=== PATIENT | female | born 1995 | race Caucasian/White ===

== ENCOUNTER → 2017-01-30 08:56 | Outpatient (CLI) | payer BC, SELFPAY | PROVIDERS: Family Provider Family Medicine; PCP Family Medicine; Visit Provider Family Medicine | DX: A04.7 Enterocolitis due to Clostridium difficile (principal) ==

== ENCOUNTER → 2017-12-22 14:48 | Outpatient (CLI) | payer BC, SELFPAY ==
[2017-12-22 16:04] LABS: hCG Titer Quant., Serum < 1 mIU/mL (<9 non-preg)
== END ==
PROVIDERS: Family Provider Family Medicine; PCP Family Medicine; Visit Provider Obstetrics & Gynecology
DX: N91.2 Amenorrhea, unspecified (principal)
CPT/HCPCS: 36415; 84702

== ENCOUNTER → 2018-01-14 14:06 | Outpatient (CLI) | payer BC, SELFPAY ==
[2018-01-21 11:08] LABS: HPV APTIMA, High Risk Negative (Negative)
[2018-01-21 11:14] LABS: HPV Reflexed? YES, CHARGE PATIENT
== END ==
PROVIDERS: Family Provider Family Medicine; PCP Family Medicine; Visit Provider Obstetrics & Gynecology
DX: Z12.4 Encounter for screening for malignant neoplasm of cervix (principal)
CPT/HCPCS: 87624; 88175; G0145

== ENCOUNTER → 2018-06-26 15:03 | Outpatient (CLI) | payer BC, SELFPAY ==
[2018-06-26 15:39] LABS: Estradiol 42.4 pg/mL; Follicle Stimulating Hormone 8.1 mIU/mL; Thyroid Stim Hormone (TSH) 1.27 uIU/mL (0.358-3.74)
== END ==
LOC: PAVLAB 15:05
PROVIDERS: Referring Provider Obstetrics & Gynecology; Visit Provider Obstetrics & Gynecology
DX: N97.9 Female infertility, unspecified (principal)
CPT/HCPCS: 36415; 82670; 83001; 84443

== ENCOUNTER → 2018-07-15 14:50 | Outpatient (CLI) | payer BC, SELFPAY ==
[2018-07-15 15:51] LABS: Progesterone Level 12.98 ng/mL (See Comment)
== END ==
PROVIDERS: Family Provider Internal Medicine; PCP Internal Medicine; Referring Provider Obstetrics & Gynecology; Visit Provider Obstetrics & Gynecology
DX: N92.1 Excessive and frequent menstruation with irregular cycle (principal)
CPT/HCPCS: 36415; 84144

== ENCOUNTER → 2019-06-17 09:16 | Outpatient (CLI) | payer BC, SELFPAY ==
[2018-12-19 13:01] VITALS: BMI 25.0
[2019-06-17 09:57] LABS: hCG Titer Quant., Serum < 1 mIU/mL (1-3)
== END ==
PROVIDERS: Family Provider Internal Medicine; PCP Internal Medicine; Referring Provider Obstetrics & Gynecology Reproductive Endocrinology; Visit Provider Obstetrics & Gynecology Reproductive Endocrinology
DX: Z32.00 Encounter for pregnancy test, result unknown (principal)
CPT/HCPCS: 36415; 84702

== ENCOUNTER → 2020-03-01 09:14 | Outpatient (CLI) | payer BC, OTHER, SELFPAY ==
[2019-10-11 10:29] VITALS: BMI 25.0
[2020-03-01 09:49] LABS: Absolute Lymphocyte Count 2.34 X10^3/uL (0.83-4.51); Absolute Neutrophil Count 3.2 X10^3/uL (2.0-7.7); Basophil# 0.04 X10^3/uL; Basophil% 0.6 % (0-1); Eosinophil# 0.19 X10^3/uL; Hematocrit 47.5 % (37-47); Hemoglobin 14.6 g/dL (12.0-15.0); Lymphocyte # 2.34 X10^3/ul (4.0); Lymphocyte % 36.9 % (19-41); Mean Corp Hgb Conc 30.7 g/dL (32-36); Mean Corpuscular Hgb 29.1 pg (27.0-32.0); Mean Corpuscular Volume 94.8 fL (81-99); Monocyte# 0.52 X10^3/uL; Monocyte% 8.2 % (0-10); NRBC Flagged by Analyzer 0 % (0-5); Neutrophil # 3.23 X10^3/uL (2.7-7.7); Platelet Count 225 K/mm3 (150-450); RBC Distribution Width CV 13.2 % (11.6-14.6); RBC Distribution Width SD 45.5 fl (35.1-43.9); Red Blood Count 5.01 M/mm3 (4.2-5.4); White Blood Count 6.3 K/mm3 (4.4-11.0)
[2020-03-01 10:55] LABS: HIV - WCH Non-Reactive (Nonreactive); Hepatitis B Surface Antigen Non-Reactive (Nonreactive); Hepatitis C Antibody Non-Reactive (Nonreactive); Vitamin D,25 Hydroxy 35.3 ng/mL
[2020-03-01 11:24] LABS: ALB/GLOB Ratio 1.1 RATIO (0.9-2.4); AST(SGOT) 12 U/L (15-37); Alanine Aminotransfer ALT/SGPT 28 U/L (13-56); Albumin, Serum 3.7 g/dL (3.2-5.0); Alkaline Phosphatase 55 U/L (45-117); Anion Gap 6 (5-15); BUN 14 mg/dL (7-18); BUN/Creat Ratio 16.9 RATIO (10-20); Calcium,Total 8.9 mg/dL (8.5-10.1); Chloride 106 mmol/L (98-107); Creatinine, Serum 0.83 mg/dL (0.55-1.02); EST Glomerular Filtration Rate 89 mL/min (>60); Est Glom Filt Rate - Afr Amer 108 mL/min (>60); Globulin 3.3 g/dL (2.2-4.2); Glucose 86 mg/dL (74-106); Potassium 3.7 mmol/L (3.5-5.1); Prolactin 14.8 ng/mL; Sodium Level 140 mmol/L (136-145); Thyroid Stim Hormone (TSH) 1.07 uIU/mL (0.358-3.74)
[2020-03-02 01:59] LABS: Rapid Plasmin Reagin (RPR) NONREACTIVE (NONREACTIVE)
== END ==
PROVIDERS: Visit Provider Obstetrics & Gynecology Reproductive Endocrinology
DX: E28.9 Ovarian dysfunction, unspecified (principal)
CPT/HCPCS: 36415; 80053; 82306; 84146; 84443; 85025; 86592; 86703; 86803; 87340

== ENCOUNTER → 2020-04-10 13:33 | Outpatient (CLI) | payer OTHER, BC, SELFPAY ==
[2019-10-11 10:29] VITALS: BMI 25.0
--- NOTE | 2020-04-10 13:55 | US_ITS ---
STUDY: ULTRASOUND OF THE FEMALE PELVIS - COMPLETE REASON FOR EXAM: Female, 24 years old. INFERTILITY LMP: 04/08/2020. TECHNIQUE: Transabdominal and Transvaginal TECHNICAL QUALITY: Adequate. COMPARISON: None. FINDINGS: The uterus is anteverted and is in a midline position. The uterus measures 7.7 cm x 4.4 cm x 2.9 cm. There is a Nabothian cyst of the cervix. The endometrium measures 3.0 mm in thickness, and is hyperechoic. There is no demonstrated endometrial mass. There is no demonstrated myometrial mass. I.U.D. - The patient does not have an I.U.D. The right ovary is visualized. The right ovary measures 4 cm x 3.8 cm x 2.1 cm. A dominant follicle is seen within the right ovary measuring 1.7 cm x 2 cm x 0.8 cm. There is no visualized right adnexal mass or complex lesion. There is normal arterial and normal venous vascularity. The left ovary is visualized. The left ovary measures 3.3 cm x 1.6 cm x 1.7 cm. There is no left ovarian cyst or ovarian mass. There is no visualized left adnexal mass or complex lesion. There is normal arterial and normal venous vascularity. There is no fluid in the cul-de-sac. The pre void volume of the bladder was 62 ml. US/Pelvic (Non ) IMPRESSION: Dominant follicle is seen in the right ovary measuring 1.7 cm x 2 cm x 0.8 cm. Electronically Signed: Lucius Huff, at 15:33 EDT , Service support ,
--- NOTE | 2020-04-10 13:55 | US_ITS ---
STUDY: ULTRASOUND OF THE FEMALE PELVIS - COMPLETE REASON FOR EXAM: Female, 24 years old. INFERTILITY LMP: 04/08/2020. TECHNIQUE: Transabdominal and Transvaginal TECHNICAL QUALITY: Adequate. COMPARISON: None. FINDINGS: The uterus is anteverted and is in a midline position. The uterus measures 7.7 cm x 4.4 cm x 2.9 cm. There is a Nabothian cyst of the cervix. The endometrium measures 3.0 mm in thickness, and is hyperechoic. There is no demonstrated endometrial mass. There is no demonstrated myometrial mass. I.U.D. - The patient does not have an I.U.D. The right ovary is visualized. The right ovary measures 4 cm x 3.8 cm x 2.1 cm. A dominant follicle is seen within the right ovary measuring 1.7 cm x 2 cm x 0.8 cm. There is no visualized right adnexal mass or complex lesion. There is normal arterial and normal venous vascularity. The left ovary is visualized. The left ovary measures 3.3 cm x 1.6 cm x 1.7 cm. There is no left ovarian cyst or ovarian mass. There is no visualized left adnexal mass or complex lesion. There is normal arterial and normal venous vascularity. There is no fluid in the cul-de-sac. The pre void volume of the bladder was 62 ml. US/Transvaginal Non- IMPRESSION: Dominant follicle is seen in the right ovary measuring 1.7 cm x 2 cm x 0.8 cm. Electronically Signed: Lucius Huff, at 15:33 EDT , Service support ,
[2020-04-10 14:26] LABS: hCG Titer Quant., Serum < 1 mIU/mL (1-3)
[2020-04-10 14:30] LABS: Progesterone Level 0.92 ng/mL (See Comment)
[2020-04-10 14:33] LABS: Estradiol 28.5 pg/mL; Follicle Stimulating Hormone 4.2 mIU/mL; Luteinizing Hormone 4.7 mIU/mL
== END ==
PROVIDERS: Referring Provider Obstetrics & Gynecology; Visit Provider Obstetrics & Gynecology
DX: N97.9 Female infertility, unspecified (principal)
CPT/HCPCS: 36415; 76830; 76856; 82670; 83001; 83002; 84144; 84443; 84702

== ENCOUNTER → 2020-04-18 09:36 | Outpatient (CLI) | payer OTHER, BC, SELFPAY ==
[2019-10-11 10:29] VITALS: BMI 25.0
[2020-04-18 10:09] LABS: Estradiol 314.5 pg/mL; Luteinizing Hormone 5.8 mIU/mL
--- NOTE | 2020-04-18 11:21 | US_ITS ---
STUDY: ULTRASOUND OF THE FEMALE PELVIS - COMPLETE REASON FOR EXAM: Female, 24 years old. INFERTILITY LMP: 04/08/2020. TECHNIQUE: Transabdominal and Transvaginal TECHNICAL QUALITY: Adequate. COMPARISON: Comparison is made with prior examination of 04/10/2020. FINDINGS: The uterus is anteverted and is in a midline position. The uterus measures 8.4 cm x 4.3 cm x 3.4 cm. There is a Nabothian cyst of the cervix. The endometrium measures 5.1 mm in thickness, and is heterogeneous (striated). There is no demonstrated endometrial mass. There is no demonstrated myometrial mass. I.U.D. - The patient does not have an I.U.D. The right ovary is visualized. The right ovary measures 3.3 cm x 2.8 cm x 2.1 cm. There is no right ovarian cyst or ovarian mass. There is no visualized right adnexal mass or complex lesion. There is normal arterial and normal venous vascularity. The left ovary is visualized. The left ovary measures 3 cm x 1.7 cm x 1.7 cm. There is no left ovarian cyst or ovarian mass. There is no visualized left adnexal mass or complex lesion. There is normal arterial and normal venous vascularity. There is no fluid in the cul-de-sac. The pre void volume of the bladder was 133 ml. Polycystic ovary disease: No. US/Transvaginal Non- IMPRESSION: Normal female pelvis. Electronically Signed: Lucius Huff, at 12:45 EDT , Service support ,
--- NOTE | 2020-04-18 11:21 | US_ITS ---
STUDY: ULTRASOUND OF THE FEMALE PELVIS - COMPLETE REASON FOR EXAM: Female, 24 years old. INFERTILITY LMP: 04/08/2020. TECHNIQUE: Transabdominal and Transvaginal TECHNICAL QUALITY: Adequate. COMPARISON: Comparison is made with prior examination of 04/10/2020. FINDINGS: The uterus is anteverted and is in a midline position. The uterus measures 8.4 cm x 4.3 cm x 3.4 cm. There is a Nabothian cyst of the cervix. The endometrium measures 5.1 mm in thickness, and is heterogeneous (striated). There is no demonstrated endometrial mass. There is no demonstrated myometrial mass. I.U.D. - The patient does not have an I.U.D. The right ovary is visualized. The right ovary measures 3.3 cm x 2.8 cm x 2.1 cm. There is no right ovarian cyst or ovarian mass. There is no visualized right adnexal mass or complex lesion. There is normal arterial and normal venous vascularity. The left ovary is visualized. The left ovary measures 3 cm x 1.7 cm x 1.7 cm. There is no left ovarian cyst or ovarian mass. There is no visualized left adnexal mass or complex lesion. There is normal arterial and normal venous vascularity. There is no fluid in the cul-de-sac. The pre void volume of the bladder was 133 ml. Polycystic ovary disease: No. US/Pelvic (Non ) IMPRESSION: Normal female pelvis. Electronically Signed: Lucius Huff, at 12:45 EDT , Service support ,
[2020-04-18 11:42] LABS: Progesterone Level < 0.21 ng/mL (See Comment)
== END ==
PROVIDERS: Referring Provider Obstetrics & Gynecology; Visit Provider Obstetrics & Gynecology
DX: E28.9 Ovarian dysfunction, unspecified (principal); N97.9 Female infertility, unspecified
CPT/HCPCS: 36415; 76830; 76856; 82670; 83002; 84144

== ENCOUNTER → 2020-04-21 13:16 | Outpatient (CLI) | payer OTHER, BC, SELFPAY ==
[2019-10-11 10:29] VITALS: BMI 25.0
[2020-04-21 10:30] LABS: hCG Titer Quant., Serum < 1 mIU/mL (1-3)
[2020-04-21 10:35] LABS: Follicle Stimulating Hormone 4.1 mIU/mL; Thyroid Stim Hormone (TSH) 1.08 uIU/mL (0.358-3.74)
--- NOTE | 2020-04-21 13:16 | US_ITS ---
STUDY: ULTRASOUND OF THE FEMALE PELVIS - COMPLETE REASON FOR EXAM: Female, 24 years old. INFERTILITY, TRACKING ENDOMETRIAL THICKNESS FOR IVF LMP: 04/08/2020. TECHNIQUE: Transabdominal and Transvaginal TECHNICAL QUALITY: Adequate. COMPARISON: Comparison is made with prior study dated 04/18/2020. FINDINGS: The uterus is anteverted and is in a midline position. The uterus measures 7.5 cm x 4.3 cm x 3.2 cm. There is a Nabothian cyst of the cervix. The endometrium measures 5.6 mm in thickness, and is hyperechoic. There is no demonstrated endometrial mass. There is no demonstrated myometrial mass. I.U.D. - The patient does not have an I.U.D. The right ovary is visualized. The right ovary measures 3.6 cm x 2.5 cm x 1.9 cm. There is no right ovarian cyst or ovarian mass. There is no visualized right adnexal mass or complex lesion. There is normal arterial and normal venous vascularity. The left ovary is visualized. The left ovary measures 3 cm x 1.3 cm x 1.7 cm. There is no left ovarian cyst or ovarian mass. There is no visualized left adnexal mass or complex lesion. There is normal arterial and normal venous vascularity. There is no fluid in the cul-de-sac. US/Pelvic (Non ) IMPRESSION: Normal female pelvis. Electronically Signed: Lucius Huff, at 14:41 EDT , Service support ,
--- NOTE | 2020-04-21 13:16 | US_ITS ---
STUDY: ULTRASOUND OF THE FEMALE PELVIS - COMPLETE REASON FOR EXAM: Female, 24 years old. INFERTILITY, TRACKING ENDOMETRIAL THICKNESS FOR IVF LMP: 04/08/2020. TECHNIQUE: Transabdominal and Transvaginal TECHNICAL QUALITY: Adequate. COMPARISON: Comparison is made with prior study dated 04/18/2020. FINDINGS: The uterus is anteverted and is in a midline position. The uterus measures 7.5 cm x 4.3 cm x 3.2 cm. There is a Nabothian cyst of the cervix. The endometrium measures 5.6 mm in thickness, and is hyperechoic. There is no demonstrated endometrial mass. There is no demonstrated myometrial mass. I.U.D. - The patient does not have an I.U.D. The right ovary is visualized. The right ovary measures 3.6 cm x 2.5 cm x 1.9 cm. There is no right ovarian cyst or ovarian mass. There is no visualized right adnexal mass or complex lesion. There is normal arterial and normal venous vascularity. The left ovary is visualized. The left ovary measures 3 cm x 1.3 cm x 1.7 cm. There is no left ovarian cyst or ovarian mass. There is no visualized left adnexal mass or complex lesion. There is normal arterial and normal venous vascularity. There is no fluid in the cul-de-sac. US/Transvaginal Non- IMPRESSION: Normal female pelvis. Electronically Signed: Lucius Huff, at 14:41 EDT , Service support ,
== END ==
PROVIDERS: Referring Provider Obstetrics & Gynecology; Visit Provider Obstetrics & Gynecology
DX: N97.9 Female infertility, unspecified (principal)
CPT/HCPCS: 36415; 76830; 76856; 83001; 84443; 84702

== ENCOUNTER → 2020-04-24 09:33 | Outpatient (CLI) | payer OTHER, BC, SELFPAY ==
[2019-10-11 10:29] VITALS: BMI 25.0
[2020-04-24 11:10] LABS: Estradiol 1395.7 pg/mL; Luteinizing Hormone 9.1 mIU/mL
--- NOTE | 2020-04-24 11:59 | US_ITS ---
STUDY: ULTRASOUND OF THE FEMALE PELVIS - COMPLETE REASON FOR EXAM: Female, 24 years old. INFERTILITY -- CHECK ENDO THICKNESS LMP: 04/08/2020 TECHNIQUE: Transabdominal and Transvaginal TECHNICAL QUALITY: Adequate. COMPARISON: None. FINDINGS: The uterus is anteverted and is in a midline position. The uterus measures 7.9 x 4.7 x 3.2 cm. Normal uterine cervix. The endometrium measures 6.2 mm in thickness, and is heterogeneous (striated). There is no demonstrated endometrial mass. There is no demonstrated myometrial mass. I.U.D. - The patient does not have an I.U.D. The right ovary is visualized. The right ovary measures 3.4 x 3.9 x 2.0 cm. There is no right ovarian cyst or ovarian mass. There is no visualized right adnexal mass or complex lesion. There is normal arterial and normal venous vascularity. The left ovary is visualized. The left ovary measures 3.1 x 1.7 x 1.3 cm. There is no left ovarian cyst or ovarian mass. There is no visualized left adnexal mass or complex lesion. There is normal arterial and normal venous vascularity. There is no fluid in the cul-de-sac. The bladder is sonographically normal US/Pelvic (Non ) IMPRESSION: No suspicious sonographic findings Electronically Signed: Rory Hernandez MD at 13:29 EDT , Service support ,
--- NOTE | 2020-04-24 11:59 | US_ITS ---
STUDY: ULTRASOUND OF THE FEMALE PELVIS - COMPLETE REASON FOR EXAM: Female, 24 years old. INFERTILITY -- CHECK ENDO THICKNESS LMP: 04/08/2020 TECHNIQUE: Transabdominal and Transvaginal TECHNICAL QUALITY: Adequate. COMPARISON: None. FINDINGS: The uterus is anteverted and is in a midline position. The uterus measures 7.9 x 4.7 x 3.2 cm. Normal uterine cervix. The endometrium measures 6.2 mm in thickness, and is heterogeneous (striated). There is no demonstrated endometrial mass. There is no demonstrated myometrial mass. I.U.D. - The patient does not have an I.U.D. The right ovary is visualized. The right ovary measures 3.4 x 3.9 x 2.0 cm. There is no right ovarian cyst or ovarian mass. There is no visualized right adnexal mass or complex lesion. There is normal arterial and normal venous vascularity. The left ovary is visualized. The left ovary measures 3.1 x 1.7 x 1.3 cm. There is no left ovarian cyst or ovarian mass. There is no visualized left adnexal mass or complex lesion. There is normal arterial and normal venous vascularity. There is no fluid in the cul-de-sac. The bladder is sonographically normal US/Transvaginal Non- IMPRESSION: No suspicious sonographic findings Electronically Signed: Rory Hernandez MD at 13:29 EDT , Service support ,
[2020-04-24 13:41] LABS: Progesterone Level < 0.21 ng/mL (See Comment)
== END ==
PROVIDERS: Referring Provider Obstetrics & Gynecology; Visit Provider Obstetrics & Gynecology
DX: N97.9 Female infertility, unspecified (principal)
CPT/HCPCS: 36415; 76830; 76856; 82670; 83002; 84144

== ENCOUNTER → 2020-05-08 09:10 | Outpatient (CLI) | payer OTHER, BC, SELFPAY ==
[2019-10-11 10:29] VITALS: BMI 25.0
[2020-05-08 10:03] LABS: Estradiol 453.7 pg/mL
[2020-05-08 10:04] LABS: Progesterone Level 52.15 ng/mL (See Comment)
== END ==
PROVIDERS: Referring Provider Obstetrics & Gynecology Reproductive Endocrinology; Visit Provider Obstetrics & Gynecology Reproductive Endocrinology
DX: E28.9 Ovarian dysfunction, unspecified (principal)
CPT/HCPCS: 36415; 82670; 84144

== ENCOUNTER → 2020-05-11 09:21 | Outpatient (CLI) | payer OTHER, BC, SELFPAY ==
[2019-10-11 10:29] VITALS: BMI 25.0
[2020-05-11 10:10] LABS: hCG Titer Quant., Serum 56 mIU/mL (1-3)
[2020-05-11 10:15] LABS: Progesterone Level 51.89 ng/mL (See Comment)
== END ==
PROVIDERS: Referring Provider Obstetrics & Gynecology Reproductive Endocrinology; Visit Provider Obstetrics & Gynecology Reproductive Endocrinology
DX: Z32.00 Encounter for pregnancy test, result unknown (principal)
CPT/HCPCS: 36415; 84144; 84702

== ENCOUNTER → 2020-05-13 08:44 | Outpatient (CLI) | payer BC, OTHER, SELFPAY ==
[2019-10-11 10:29] VITALS: BMI 25.0
[2020-05-13 09:45] LABS: Progesterone Level 40.65 ng/mL (See Comment)
[2020-05-13 09:48] LABS: hCG Titer Quant., Serum 73 mIU/mL (1-3)
[2020-05-13 09:53] LABS: Thyroid Stim Hormone (TSH) 0.73 uIU/mL (0.358-3.74)
== END ==
PROVIDERS: Referring Provider Obstetrics & Gynecology Reproductive Endocrinology; Visit Provider Obstetrics & Gynecology Reproductive Endocrinology
DX: Z32.01 Encounter for pregnancy test, result positive (principal)
CPT/HCPCS: 36415; 82670; 84144; 84443; 84702

== ENCOUNTER → 2020-05-16 09:13 | Outpatient (CLI) | payer OTHER, BC, SELFPAY ==
[2019-10-11 10:29] VITALS: BMI 25.0
[2020-05-16 09:57] LABS: Estradiol 1369.8 pg/mL; hCG Titer Quant., Serum 37 mIU/mL (1-3)
[2020-05-16 09:58] LABS: Progesterone Level 27.77 ng/mL (See Comment)
== END ==
DX: Z32.01 Encounter for pregnancy test, result positive (principal)
CPT/HCPCS: 36415; 82670; 84144; 84702

== ENCOUNTER → 2020-05-23 09:40 | Outpatient (CLI) | payer OTHER, BC, SELFPAY ==
[2020-05-18 09:57] VITALS: BMI 25.0
[2020-05-23 10:07] LABS: hCG Titer Quant., Serum < 1 mIU/mL (1-3)
== END ==
PROVIDERS: Referring Provider Obstetrics & Gynecology Reproductive Endocrinology; Visit Provider Obstetrics & Gynecology Reproductive Endocrinology
DX: Z32.01 Encounter for pregnancy test, result positive (principal)
CPT/HCPCS: 36415; 84702

== ENCOUNTER 2020-06-13 10:28 | Day surgery (SDC) | payer OTHER, SELFPAY ==
[2020-05-18 09:57] VITALS: BMI 25.0
[2020-06-13 10:59] VITALS: BP 96/66; PULSE 90; RESP 16; TEMP 37.1; O2SAT 100; BMI 26.6
[2020-06-13 11:03] LABS: Internal QC Validated? YES +Cl - CLEAR BKGD; Pregnancy, Urine Negative Negative
[2020-06-13] MEDS: Lactated Ringers 1,000 ML 100 ML IV (11:17)
--- NOTE | 2020-06-13 12:03 | PCM.HPOB.BLA ---
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 She is undergoing IVF through a physician in [place]. She has not had bleeding in spite of decreasing quants. She also reports a history of pelvic pain. Reports some pain with periods. Periods are very light. Also reports deep dyspareunia. Both her mother and her sister had severe endometriosis. She is actively trying to get so she is unable to use OCPs or leupron. Pregancy History 2 Elective abortions Hx Para 0 Spontaneous abortions 1 Hx # Term Pregnancies Ectopic pregnancies Hx # Pregnancies Multiple births # of living children ROS Const Constitutional: Denies chills, fatigue or fever(s) : Reports pelvic pain and sexual problems; denies blood in urine, urinary urgency, vaginal discharge, vaginal dryness, vaginal odor or vaginal itching Exam Const General: cooperative, healthy appearing, comfortable, well developed, well groomed Neck Neck: normal visual inspection, full ROM Resp Effort & Inspection: normal respiratory effort, able to speak in complete sentences, symmetric chest movement Cardio Rate: regular rate Skin General: no rashes or lesions noted, elasticity normal, turgor normal Lesions: no lesions Rashes: no rashes Neuro General: alert, awake, oriented x3 Cranial Nerves: CN's II-XI intact bilaterally, PERRL, EOM intact bilaterally Cognition: normal cognition Speech: speech normal Gait: normal gait Extrem General: normal to inspection, full ROM, no pedal edema Psych Appearance: grossly normal Mental Status: mental status grossly normal Mood: congruent mood Affect: normal affect Speech and Movement: speech and movement normal Attitude: cooperative Thought Process: normal Thought Content: normal Assessment & Plan 1. Miscarriage O03.9 Plan - Patient with falling quants following embryo transfer - most recently 14 - Will repeat weekly quants to zero - Undecided on future embryo transfers - has phone call with YANNI this week 2. Pelvic pain R10.2 Plan - Patient with history of some pain with menses and deep dyspareunia - Mother and sister both have history of endometriosis - Unable to attempt medical management due to desire for - Plan to proceed with diagnostic laparoscopy with possible fulguration of endometriosis and chromotubation. The nature of the procedure was discussed with the patient. Risks, benefits, indications, and alternatives to the procedure were discussed with the patient including bleeding, infection, and visceral or vascular injury. Agreeable to blood products if medically necessary. Discussed possibility of infection inside abdomen or at incision sites which could require outpatient or inpatient antibiotics. Discussed the possibility of injury to uterus, tubes, ovaries, bowel, and bladder. Aware that this could require intra-op consult to general surgery or urology. Also aware of the possibility of prolonged hospitalization or reoperation. Discussed possibility of need to convert to open to procedure. All questions were answered. Patient voices understanding and agrees to proceed. Coding Level of Care Code Off vis,est,level 4 Diagnoses Miscarriage O03.9 Pelvic pain R10.2 UPDATE- I have seen the patient and performed any clinically relevant updates to the history and physical exam. Mallika Gr MD
--- NOTE | 2020-06-13 12:05 | DCINST_ITS ---
Discharge Diet: No Restrictions, - - Increase fluid intake for 48 hours. Discharge Activity: Return to Normal Activity, May Drive - when you are no longer taking narcotic pain medications., May Shower, May Take a Tub Bath - in 7 days., - - Ambulate often the next week after surgery. May resume sexual activity in: 1-2 weeks Additional Activity Instructions:: Nothing in the vagina for the next 5 days. Call your doctor if your incision/area has: Continuous Slow Oozing, Sudden Increased Bleeding, Increased Pain/ Swelling, Increased Redness, Foul Smelling Discharge, Swelling at the incision site Call your doctor if you observe: Fever of 101 or Higher Cleanse incision/area with: Keep Dressing Clean & Dry Allergies/Adverse Reactions: Allergies No Known Allergies Allergy (Verified 06/13/20 10:57) Medications to take at Discharge Albuterol IH (ProAir) [Proair Hfa (SP)Vent Pts] 1 puff INHALATION Q6H PRN PRN 05/30/20 Primary Care Physician: Care Physician,No Primary [Primary Care Provider] - Test Results: Test results from this visit will be discussed in further detail at your follow- up appointment, if applicable.
--- NOTE | 2020-06-13 12:11 | OP.PCM_ITS ---
Problem List (1) Dysmenorrhea Status: Acute
--- NOTE | 2020-06-13 12:11 | PCM.OPRPT ---
Problem List (1) Dysmenorrhea Status: Acute
[2020-06-13] MEDS: Bupivacaine 0.25% 30 ML Vial (13:00)
--- NOTE | 2020-06-13 13:30 | OP.PCM_ITS ---
Problem List (1) Dysmenorrhea Status: Acute Report of Operation Date of Procedure: 06/13/20 Pre-Operative Diagnosis: Pelvic pain, suspected endometriosis Post-Operative Diagnosis: Endometriosis Surgery/Procedure Performed:: Diagnostic laparoscopy, fulguration of endometriosis, chromotubation Description of Surgical Findings:: Patient was taken to the operating room where general anesthesia was obtained without difficulty. She was prepped and draped in the dorsal lithotomy position with yellowfin stirrups. A weighted speculum space in the posterior aspect of the vagina and the inner lip of the cervix was grasped with a single-tooth tenaculum. A ZUMI uterine manipulator was then placed without difficulty. A syringe containing dilute methylene blue was placed on the end of the ma nipulator for chromotubation. Gloves were changed and attention was redirected to the abdominal cavity. The umbilicus was everted and grasped with towel clamps. The area was instilled with 8 cc of lidocaine. A 5 mm incision was made at the base of the umbilicus. The varies needle was introduced atraumatically. An intra-abdominal position was confirmed with a water drop test. Opening pressure was 3. The abdomen was insufflated to a pressure of 15 mmHg. The Veress needle was removed and a 5 mm trocar was inserted under direct visualization. Initial inspection of the abdomen revealed no evidence of significant adhesive disease. Of evidence of endometriosis was noted in the posterior cul-de-sac directly below the uterosacral ligaments. Additional endometriosis was noted bilaterally in the ovarian fossa. The uterus itself appeared normal. Both ovaries appeared normal. Additional ports were placed in the right and left lower quadrants to allow for fulguration of the endometriosis. All of the above-noted lesions were cauterized using monopolar cautery. Chromotubation was performed and bilateral spill was noted. Inspection of the upper abdomen revealed no evidence of adhe sions. The procedure was deemed complete. All instruments were removed from the vagina and the abdominal cavity. All counts were correct x2. The patient was taken to the recovery room in stable condition. 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
[2020-06-13 13:47] VITALS: BP 121/72; BP 96/66; PULSE 100; RESP 16; TEMP 36.2; O2SAT 96
[2020-06-13 14:00] VITALS: BP 101/75; BP 96/66; PULSE 90; RESP 15; O2SAT 96
[2020-06-13 14:07] VITALS: BP 85/61; BP 96/66; PULSE 83; RESP 16; TEMP 36.3; O2SAT 100
[2020-06-13 15:00] VITALS: BP 96/52; BP 96/66; PULSE 72; RESP 16; TEMP 36.7; O2SAT 100
== END 2020-06-13 15:40 | disposition home or self-care (01) ==
LOC: SDC 10:34 → AC 10:34
PROVIDERS: Anesthesiology; Referring Provider Obstetrics & Gynecology; Visit Provider Obstetrics & Gynecology
PROC: (CPT 49320; principal; 2020-06-13 11:45)
DX: N80.3 Endometriosis of pelvic peritoneum (principal); N80.1 Endometriosis of ovary; Z11.59 Encounter for screening for other viral diseases; F41.9 Anxiety disorder, unspecified; F32.9 Major depressive disorder, single episode, unspecified; G43.909 Migraine, unspecified, not intractable, without status migrainosus; J45.909 Unspecified asthma, uncomplicated; Z87.442 Personal history of urinary calculi; Z79.899 Other long term (current) drug therapy
CPT/HCPCS: 58350; 58662; 81025; 87635; C9803; J7120; J2405; Q9968; U0003

== ENCOUNTER → 2020-10-23 10:57 | Outpatient (CLI) | payer OTHER, SELFPAY ==
[2020-06-28 09:54] VITALS: BMI 26.4
[2020-10-23 12:08] LABS: hCG Titer Quant., Serum < 1 mIU/mL (1-3)
[2020-10-23 12:09] LABS: Progesterone Level 0.37 ng/mL (See Comment)
[2020-10-23 12:13] LABS: Estradiol 24.5 pg/mL; Follicle Stimulating Hormone 6.3 mIU/mL; Thyroid Stim Hormone (TSH) 1.12 uIU/mL (0.358-3.74)
== END ==
PROVIDERS: Visit Provider Obstetrics & Gynecology Reproductive Endocrinology
DX: E28.9 Ovarian dysfunction, unspecified (principal)
CPT/HCPCS: 36415; 82670; 83001; 83002; 84144; 84443; 84702

== ENCOUNTER → 2020-10-30 09:28 | Outpatient (CLI) | payer OTHER, SELFPAY ==
[2020-06-28 09:54] VITALS: BMI 26.4
[2020-10-30 10:42] LABS: Estradiol 154.2 pg/mL; Luteinizing Hormone 11.4 mIU/mL
[2020-10-30 11:08] LABS: Progesterone Level < 0.21 ng/mL (See Comment)
== END ==
LOC: WOBLAB 09:31
PROVIDERS: Visit Provider Obstetrics & Gynecology Reproductive Endocrinology
DX: E28.9 Ovarian dysfunction, unspecified (principal)
CPT/HCPCS: 36415; 82670; 83002; 84144

== ENCOUNTER → 2020-11-10 09:12 | Outpatient (CLI) | payer OTHER, SELFPAY ==
[2020-06-28 09:54] VITALS: BMI 26.4
[2020-11-10 10:27] LABS: Estradiol 114.1 pg/mL
[2020-11-10 10:29] LABS: Progesterone Level 32.47 ng/mL (See Comment)
== END ==
LOC: WOBLAB 09:14
PROVIDERS: Visit Provider Obstetrics & Gynecology Reproductive Endocrinology
DX: E28.9 Ovarian dysfunction, unspecified (principal)
CPT/HCPCS: 36415; 82670; 84144

== ENCOUNTER → 2020-11-15 08:56 | Outpatient (CLI) | payer OTHER, SELFPAY ==
[2020-06-28 09:54] VITALS: BMI 26.4
[2020-11-15 09:50] LABS: Progesterone Level 36.95 ng/mL (See Comment); hCG Titer Quant., Serum 70 mIU/mL (1-3)
== END ==
LOC: WOBLAB 08:57
PROVIDERS: Visit Provider Obstetrics & Gynecology Reproductive Endocrinology
DX: E28.9 Ovarian dysfunction, unspecified (principal)
CPT/HCPCS: 36415; 84144; 84702

== ENCOUNTER → 2020-11-17 09:11 | Outpatient (CLI) | payer OTHER, SELFPAY ==
[2020-06-28 09:54] VITALS: BMI 26.4
[2020-11-17 10:22] LABS: hCG Titer Quant., Serum 64 mIU/mL (1-3)
[2020-11-17 10:23] LABS: Progesterone Level 33.53 ng/mL (See Comment)
[2020-11-17 10:28] LABS: Estradiol 162.9 pg/mL; Thyroid Stim Hormone (TSH) 1.19 uIU/mL (0.358-3.74)
== END ==
LOC: WOBLAB 09:13
PROVIDERS: Visit Provider Obstetrics & Gynecology Reproductive Endocrinology
DX: Z32.01 Encounter for pregnancy test, result positive (principal)
CPT/HCPCS: 36415; 82670; 84144; 84443; 84702

== ENCOUNTER → 2020-11-20 08:53 | Outpatient (CLI) | payer OTHER, SELFPAY ==
[2020-06-28 09:54] VITALS: BMI 26.4
[2020-11-20 10:03] LABS: hCG Titer Quant., Serum 51 mIU/mL (1-3)
[2020-11-20 10:04] LABS: Estradiol 53.4 pg/mL
[2020-11-20 10:11] LABS: Progesterone Level 2.42 ng/mL (See Comment)
== END ==
LOC: WOBLAB 08:53
PROVIDERS: Visit Provider Obstetrics & Gynecology Reproductive Endocrinology
DX: O02.81 Inappropriate change in quantitative human chorionic gonadotropin (hCG) in early pregnancy (principal); Z3A.00 Weeks of gestation of pregnancy not specified
CPT/HCPCS: 36415; 82670; 84144; 84702

== ENCOUNTER → 2021-04-02 | Outpatient (CLI) | payer OTHER, SELFPAY ==
[2020-06-28 09:54] VITALS: BMI 26.4
[2021-04-05 03:06] LABS: Chlamydia By Nucleic Acid AMP Negative (Negative)
[2021-04-05 16:24] LABS: Gonococcus By Nucleic Acid AMP Negative (Negative)
== END | disposition home or self-care (01) ==
LOC: LABSPEC 14:00
PROVIDERS: Visit Provider Obstetrics & Gynecology
DX: Z34.81 Encounter for supervision of other normal pregnancy, first trimester (principal); Z11.3 Encounter for screening for infections with a predominantly sexual mode of transmission
CPT/HCPCS: 87491; 87591

== ENCOUNTER → 2021-04-16 10:59 | Outpatient (CLI) | payer OTHER, SELFPAY ==
[2020-06-28 09:54] VITALS: BMI 26.4
[2021-04-16 13:37] LABS: Absolute Lymphocyte Count 1.51 X10^3/uL (0.83-4.51); Absolute Neutrophil Count 4.5 X10^3/uL (2.0-7.7); Basophil# 0.02 X10^3/uL; Basophil% 0.3 % (0-1); Eosinophil# 0.03 X10^3/uL; Eosinophils% 0.5 % (0-5); Hematocrit 42.7 % (37-47); Lymphocyte # 1.51 X10^3/ul (0.83-4.51); Lymphocyte % 23.1 % (19-41); Mean Corp Hgb Conc 32.8 g/dL (32-36); Mean Corpuscular Hgb 29.7 pg (27.0-32.0); Mean Corpuscular Volume 90.7 fL (81-99); Mean Platelet Vol. 10.4 fl (6.2-12.0); Monocyte# 0.44 X10^3/uL; Monocyte% 6.7 % (0-10); NRBC Flagged by Analyzer 0 % (0-5); Neutrophil # 4.52 X10^3/uL (2.7-7.7); Neutrophil % 69.2 % (47-70); Platelet Count 241 K/mm3 (150-450); RBC Distribution Width CV 13.5 % (11.6-14.6); RBC Distribution Width SD 45.6 fl (35.1-43.9); Red Blood Count 4.71 M/mm3 (4.2-5.4); White Blood Count 6.5 K/mm3 (4.4-11.0)
[2021-04-16 14:24] LABS: HIV - WCH Non-Reactive (Nonreactive); Hepatitis B Surface Antigen Non-Reactive (Nonreactive); Hepatitis C Antibody Non-Reactive (Nonreactive); Rubella IgG Reactive (Nonreactive); Syphilis Antibodies Non-reactive
== END ==
LOC: WOBLAB 11:00
PROVIDERS: Visit Provider Obstetrics & Gynecology
DX: Z34.81 Encounter for supervision of other normal pregnancy, first trimester (principal)
CPT/HCPCS: 36415; 85025; 86703; 86762; 86780; 86803; 87086; 87088; 87340

== ENCOUNTER → 2021-08-20 08:53 | Outpatient (CLI) | payer OTHER, SELFPAY ==
[2021-08-20 10:41] LABS: Glucose GTT-Gestational 1 Hr 151 mg/dL (<190)
[2021-08-20 10:50] LABS: Glucose GTT-Gestation. Fasting 81 mg/dL (<105)
[2021-08-20 12:29] LABS: Glucose GTT-Gestational 2 Hr 128 mg/dL (<165)
[2021-08-20 13:35] LABS: Glucose GTT-Gestational 3 Hr 114 L (<145)
== END ==
PROVIDERS: Visit Provider Obstetrics & Gynecology
DX: O24.912 Unspecified diabetes mellitus in pregnancy, second trimester (principal); Z3A.00 Weeks of gestation of pregnancy not specified
CPT/HCPCS: 36415; 82951; 82952

== ENCOUNTER 2021-09-07 22:20 | Outpatient (CLI) | payer OTHER, SELFPAY ==
[2021-09-07 22:34] VITALS: BP 103/55; PULSE 94; TEMP 37.1; O2SAT 98
[2021-09-07 22:43] VITALS: BMI 29.1
[2021-09-07 23:00] LABS: Color, Urine Yellow (Yellow); Glucose, Dipstick Normal (Normal); Ketone-Dipstick Negative (Negative); Leukocyte Esterase-Dipstick 100 /ul (Negative); Nitrite-Dipstick Negative (Negative); Occult Blood-Urine Negative /ul (Negative); Protein-Dipstick Negative (Negative); Urine Bilirubin Dipstick Negative (Negative); Urine Clarity Clear (Clear); Urine Urobilinogen Normal (Normal)
--- NOTE | 2021-09-09 09:46 | OB.TRI.NOTE ---
HPI - General HPI Narrative ROSA MORENO, is a 26 F who presents at 27 weeks 4 days gestation with decreased movement. PFSH PFSH Medical History (Updated 09/09/21 @ 09:[address] Bernardo Howard MD) Anxiety and depression Asthma Home Medications albuterol sulfate 1 puff INHALATION Q6H PRN PRN 05/30/20 [History Last Taken Unknown] aspirin 81 mg PO DAILY 09/07/21 [History Last Taken 09/07/21] [id number] [] 1 tab PO DAILY 09/07/21 [History Last Taken 09/07/21] Allergy/AdvReac Type Severity Reaction Status Date / Time No Known Allergies Allergy Verified 06/28/20 09:54 Surgical History (Updated 06/28/20 @ 09:54 by Suzi Wang) chromotubation Endometriosis determined by laparoscopy fulguration of endometriosis History of bladder surgery Social History (Updated 06/28/20 @ 19:[address] 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 heart tones are reassuring on monitor. Continue routine care.
== END 2021-09-07 23:25 | disposition home or self-care (01) ==
LOC: WPOUT 22:27 → WP 22:27
PROVIDERS: Referring Provider Obstetrics & Gynecology; Visit Provider Obstetrics & Gynecology
DX: O36.8120 Decreased fetal movements, second trimester, not applicable or unspecified (principal); O99.512 Diseases of the respiratory system complicating pregnancy, second trimester; J45.909 Unspecified asthma, uncomplicated; Z3A.27 27 weeks gestation of pregnancy; Z79.82 Long term (current) use of aspirin
CPT/HCPCS: 59025; 59050; 81002; 87086; 87088; 99218; G0378

== ENCOUNTER 2021-10-08 14:35 | Outpatient (CLI) | payer OTHER, SELFPAY ==
[2021-10-08 15:57] LABS: Hematocrit 33.9 % (37-47); Hemoglobin 10.5 g/dL (12.0-15.0); Mean Corpuscular Hgb 28.6 pg (27.0-32.0); Mean Corpuscular Volume 92.4 fL (81-99); Platelet Count 221 K/mm3 (150-450); RBC Distribution Width CV 14.1 % (11.6-14.6); RBC Distribution Width SD 48.1 fl (35.1-43.9); Red Blood Count 3.67 M/mm3 (4.2-5.4); White Blood Count 10.5 K/mm3 (4.4-11.0)
== END 2021-10-08 23:59 | disposition short-term general hospital (02) ==
PROVIDERS: Visit Provider Obstetrics & Gynecology
DX: D64.9 Anemia, unspecified (principal)
CPT/HCPCS: 36415; 85027

== ENCOUNTER 2021-10-29 22:48 | Outpatient (CLI) | payer OTHER, SELFPAY ==
[2021-10-29 23:10] VITALS: BP 100/57; PULSE 88
[2021-10-29 23:13] VITALS: TEMP 37.3
--- NOTE | 2021-10-29 23:32 | PN_ITS ---
Progress Note HPI: 26-year-old G4, P0 at 35/0 weeks presenting with headache and elevated temperature. States that she has headache for 4 days. It is frontal and dull and achy. Denies visual disturbances or light or sound sensitivity. Reports temperature highest of 100.1 ?F. She has taken 2 Tylenol with 500 mg each, last dose around 10 PM. States that that did not improve her headache. Denies cough, chills, nausea or vomiting, chest pain or shortness of breath, diarrhea or constipation. 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 complicated by: Anxiety not on medication, recurrent loss, failed 1hr normal 3hr GTT. IVF . Medical history: Denies Surgical history: 1. Bladder extension surgery 2. Diagnostic laparoscopy 3. Follicle retrieval 4. Tonsillectomy and adenoidectomy Allergies: No known drug allergies Medications: 1. Aspirin 81 mg 2. 3. Keflex 4. Zofran Review of systems: Negative otherwise stated as above Physical exam: Blood [id number]/57, pulse 88, temp 99.2 degrees Fahrenheit General: Patient in no acute distress HEENT: Normocephalic/atraumatic, PERRLA Cardiorespiratory: No increased effort, regular heart rate Abdomen: Soft, nontender, gravid Extremities: 1+ pedal edema Neurologic: Cranial nerves II through XII grossly intact, patellar reflexes 2/4 bilaterally, no clonus bilaterally Musculoskeletal: Strength and movement 5 out of 5 throughout all extremities heart rate:145/mod ean/+accel/no decel [place]: quiet Assessment/plan: 26-year-old G4, P0 at 35/0 weeks presenting with headache and slightly elevated temperature. -CEFM. status reassuring -Patient has had 1000 g Tylenol today. Will give Fioricet. -Blood pressure within normal limits, low suspicion of preeclampsia. Labs to be sent -We will give 1 L LR bolus -Recommend compression stockings for edema -Monitor in triage at this time.
[2021-10-29 23:34] VITALS: BMI 31.2
[2021-10-29] MEDS: Lactated Ringers 1,000 ML 999 ML IV (23:51)
[2021-10-29] MEDS: Acetaminophen/Butalbital/Caffe 1 Tablet PO (23:53)
[2021-10-30 00:06] LABS: Absolute Lymphocyte Count 2.64 X10^3/uL (0.83-4.51); Absolute Neutrophil Count 7.5 X10^3/uL (2.0-7.7); Basophil# 0.04 X10^3/uL; Basophil% 0.3 % (0-1); Eosinophils% 1.7 % (0-5); Hematocrit 32.7 % (37-47); Hemoglobin 10.6 g/dL (12.0-15.0); Lymphocyte # 2.64 X10^3/ul (0.83-4.51); Lymphocyte % 22.4 % (19-41); Mean Corp Hgb Conc 32.4 g/dL (32-36); Mean Corpuscular Hgb 28.9 pg (27.0-32.0); Mean Corpuscular Volume 89.1 fL (81-99); Mean Platelet Vol. 10.6 fl (6.2-12.0); Monocyte% 10.2 % (0-10); NRBC Flagged by Analyzer 0 % (0-5); Neutrophil # 7.54 X10^3/uL (2.7-7.7); Neutrophil % 64.1 % (47-70); Platelet Count 214 K/mm3 (150-450); Red Blood Count 3.67 M/mm3 (4.2-5.4); White Blood Count 11.8 K/mm3 (4.4-11.0)
[2021-10-30 00:10] LABS: Color, Urine Yellow (Yellow); Glucose, Dipstick Normal (Normal); Ketone-Dipstick Negative (Negative); Leukocyte Esterase-Dipstick 500 /ul (Negative); Nitrite-Dipstick Negative (Negative); Occult Blood-Urine Negative /ul (Negative); Protein-Dipstick 15 mg/dl (Negative); Urine Bilirubin Dipstick Negative (Negative); Urine Clarity Sl. Cloudy (Clear); Urine Urobilinogen Normal (Normal)
[2021-10-30 00:35] LABS: ALB/GLOB Ratio 0.6 RATIO (0.9-2.4); AST(SGOT) 13 U/L (15-37); Alanine Aminotransfer ALT/SGPT 22 U/L (13-56); Albumin, Serum 2.3 g/dL (3.2-5.0); Alkaline Phosphatase 148 U/L (45-117); Anion Gap 6 (5-15); BUN 6 mg/dL (7-18); BUN/Creat Ratio 9.8 RATIO (10-20); Calcium,Total 8.4 mg/dL (8.5-10.1); Chloride 113 mmol/L (98-107); Creatinine, Serum 0.61 mg/dL (0.55-1.02); EST Glomerular Filtration Rate 124 mL/min (>60); Est Glom Filt Rate - Afr Amer 150 mL/min (>60); Globulin 3.6 g/dL (2.2-4.2); Glucose 116 mg/dL (74-106); Potassium 3.6 mmol/L (3.5-5.1); Protein, Total 5.9 g/dL (6.4-8.2); Sodium Level 141 mmol/L (136-145)
== END 2021-10-30 01:10 | disposition home or self-care (01) ==
LOC: WPOUT 22:55 → WP 22:56
PROVIDERS: Visit Provider Student in an Organized Health Care Education/Training Program
DX: O26.893 Other specified pregnancy related conditions, third trimester (principal); O12.03 Gestational edema, third trimester; R51.9 Headache, unspecified; Z3A.35 35 weeks gestation of pregnancy; O26.23 Pregnancy care for patient with recurrent pregnancy loss, third trimester; O99.343 Other mental disorders complicating pregnancy, third trimester; F41.9 Anxiety disorder, unspecified; O09.813 Supervision of pregnancy resulting from assisted reproductive technology, third trimester; Z79.82 Long term (current) use of aspirin
CPT/HCPCS: 96360; 36415; 59025; 59050; 80053; 81002; 85025; 86850; 86900; 86901; 99218; J7120; G0378

== ENCOUNTER 2021-11-02 16:10 | Outpatient (CLI) | payer OTHER, SELFPAY ==
[2021-11-02 16:22] VITALS: BMI 31.7
[2021-11-02 17:10] LABS: ROM Internal Control Test YES-OK TO RESULT pt. (Internal QC); ROM Patient Test Negative (Negative)
--- NOTE | 2021-11-04 08:12 | OB.TRI.HP_ITS ---
HPI - General HPI Narrative ROSA MORENO, is a 26 F who presents to labor and delivery with some leaking of fluid at 35 weeks 4 days gestation. Minimal contractions noted. PFSH PFSH Medical History (Updated 11/04/21 @ 08:[address] Bernardo Howard MD) Anxiety and depression Asthma Home Medications albuterol sulfate 1 puff INHALATION Q6H PRN PRN 05/30/20 [History Last Taken Unknown] aspirin 81 mg PO DAILY 09/07/21 [History Last Taken 11/01/21 21:00] [id number] [] 1 tab PO DAILY 09/07/21 [History Last Taken 11/01/21 21:00] Allergy/AdvReac Type Severity Reaction Status Date / Time No Known Allergies Allergy Verified 06/28/20 09:54 Surgical History (Updated 06/28/20 @ 09:54 by Suzi Wang) chromotubation Endometriosis determined by laparoscopy fulguration of endometriosis History of bladder surgery Social History (Updated 06/28/20 @ 19:[address] 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 ROM test was negative. Nonstress test was reactive. Minimal contractions. Discharge to home with routine labor instructions and routine follow-up recommended.
== END 2021-11-02 23:59 | disposition home or self-care (01) ==
LOC: WPOUT 16:17 → WP 16:18
PROVIDERS: Visit Provider Obstetrics & Gynecology
DX: O42.913 Preterm premature rupture of membranes, unspecified as to length of time between rupture and onset of labor, third trimester (principal); Z3A.35 35 weeks gestation of pregnancy; O99.513 Diseases of the respiratory system complicating pregnancy, third trimester; J45.909 Unspecified asthma, uncomplicated
CPT/HCPCS: 59025; 59050; 84112; 99218; G0378

== ENCOUNTER 2021-11-16 23:30 | Outpatient (CLI) | payer OTHER, SELFPAY ==
[2021-11-16 23:42] VITALS: O2SAT 99
[2021-11-16 23:43] VITALS: BP 123/76; PULSE 97; TEMP 36.5
[2021-11-16 23:45] VITALS: BMI 31.9
--- NOTE | 2021-11-17 02:42 | PCM.PN.BLA ---
Progress Note 26-year-old G4, P0 at 37/5 weeks presenting with contractions. Denies leaking of fluid, vaginal bleeding. Reports movement. Cervical exam per RN 1 cm very posterior, thick and high. Recheck exam unchanged. heart rate: 135/moderate variability/+accel/no decel [facility]: Intermittent irregular contraction Assessment/plan: 26-year-old at 37/5, not in labor. Possible early labor, however is not making cervical change. Patient discharged home with labor precautions.
== END 2021-11-17 02:00 | disposition home or self-care (01) ==
LOC: WPOUT 23:33 → WP 23:34
PROVIDERS: Visit Provider Student in an Organized Health Care Education/Training Program
DX: O47.9 False labor, unspecified (principal); Z3A.00 Weeks of gestation of pregnancy not specified
CPT/HCPCS: 59050; 99218; G0378

== ENCOUNTER 2021-11-25 00:45 | Inpatient (IN) | payer OTHER, SELFPAY ==
[2021-11-24] VITALS (9 sets, daily range): BP systolic 96–111; BP diastolic 51–70; PULSE 92–103; O2SAT 98; BMI 32.2
[2021-11-24] MEDS: Acetaminophen 500 MG Tablet 1000 MG PO (22:01)
[2021-11-24 22:13] LABS: Hematocrit 37.9 % (37-47); Hemoglobin 12.2 g/dL (12.0-15.0); Mean Corp Hgb Conc 32.2 g/dL (32-36); Mean Corpuscular Volume 93.1 fL (81-99); Mean Platelet Vol. 10.6 fl (6.2-12.0); Platelet Count 181 K/mm3 (150-450); Red Blood Count 4.07 M/mm3 (4.2-5.4); White Blood Count 9.9 K/mm3 (4.4-11.0)
[2021-11-24 22:17] LABS: Protein, Urine (Random) 7.7 mg/dL (<11.9); Protein:Creat Ratio 316 mg/g CRE (0-200)
[2021-11-24 22:24] LABS: Albumin, Serum 2.6 g/dL (3.2-5.0); BUN 8 mg/dL (7-18); BUN/Creat Ratio 11.4 RATIO (10-20); EST Glomerular Filtration Rate 106 mL/min (>60); Est Glom Filt Rate - Afr Amer 128 mL/min (>60); Glucose 91 mg/dL (74-106); Protein, Total 6.5 g/dL (6.4-8.2)
[2021-11-24 22:25] LABS: ALB/GLOB Ratio 0.7 RATIO (0.9-2.4); AST(SGOT) 16 U/L (15-37); Alanine Aminotransfer ALT/SGPT 27 U/L (13-56); Alkaline Phosphatase 203 U/L (45-117); Anion Gap 7 (5-15); Calcium,Total 8.7 mg/dL (8.5-10.1); Chloride 110 mmol/L (98-107); Globulin 3.9 g/dL (2.2-4.2); Potassium 3.8 mmol/L (3.5-5.1); Sodium Level 138 mmol/L (136-145)
[2021-11-24 22:32] LABS: LDH 159 U/L (84-246); Uric Acid 5.5 mg/dL (2.6-6.0)
[2021-11-25] VITALS (74 sets, daily range): BP systolic 83–123; BP diastolic 47–77; PULSE 77–111; RESP 11–20; TEMP 36.1–36.8; O2SAT 91–100
[2021-11-25] MEDS: Lactated Ringers 1,000 ML 125 ML IV
[2021-11-25] MEDS: DiphenhydrAMINE 25 MG Capsule PO (00:12)
[2021-11-25] MEDS: Metoclopramide 10 MG/2 ML Vial 5 MG IV (00:12)
--- NOTE | 2021-11-25 01:19 | PCM.HP.OB ---
HPI - General General Date of Admission: 11/25/21 HPI Narrative ROSA MORENO, is a 26 F who presents wtih c/o headache x 3 days. Headache has been off and on and previously improved with Tylenol. Headache again recurred on 11/24 with no resolution. Reports feeling unwell overall. Denies vision changes, shortness of breath, cough, fever, chills. + contractions. No leaking of fluid. Reports vaginal bleeding after initial triage exam, now slowed. OB PROBLEM LIST: 3 early losses - all IVFs. , this natural hx endometriosis Accessory placenta lobe Depression/Anxiety EPDS=15 Elev 1h GTT - f/u 3h GTT polyhydramnios Maternal Data Information CHANTELLE Calculator Estimated Delivery Date Method Current WG Current Estimate 12/03/21 Ultrasound #1 38w 6d Other Estimates 12/01/21 LMP (Uncertain) 39w 1d PFSH PFSH Medical History (Updated 11/25/21 @ 01:[address] Gisella Perry MD) Anxiety and depression Asthma Depression Dysmenorrhea Primary female infertility Home Medications albuterol sulfate 1 puff INHALATION Q6H PRN PRN 05/30/20 [History Last Taken Unknown] aspirin 81 mg PO DAILY 09/07/21 [History Last Taken 11/15/21] [id number] [] 1 tab PO DAILY 09/07/21 [History Last Taken 11/15/21] Allergy/AdvReac Type Severity Reaction Status Date / Time No Known Allergies Allergy Verified 11/25/21 01:15 Family History (Updated 11/25/21 @ 01:[address] Gisella Perry MD) Mother Fibromyalgia Celiac disease Sister Autoimmune disease Surgical History (Updated 11/25/21 @ 01:[address] Gisella Perry MD) chromotubation Endometriosis determined by laparoscopy fulguration of endometriosis History of bladder surgery S/P tonsillectomy and adenoidectomy Social History (Updated 06/28/20 @ 19:[address] 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 History 4 Elective abortions 0 Hx Para 0 Spontaneous abortions 3 Hx # Term Pregnancies 0 Ectopic pregnancies Hx # Pregnancies 0 Multiple births # of living children 0 NST FHR Rate Baby A Baseline: 140 Variability:: Minimal Accelerations:: 15 x 15 Decelerations:: None NST Reactive:: Appropriate for gestational age FHR Category:: Category II Uterine Activity:: 3-510 Vital Signs Vital Signs Vital Signs: 11/24/21 21:26 11/24/21 21:31 11/24/21 21:36 Pulse Rate 99 103 H 92 Blood Pressure 110/69 BP Systolic 110 BP Diastolic 69 Pulse Ox 98 98 98 11/24/21 21:41 11/24/21 21:42 11/24/21 21:46 Pulse Rate 97 93 97 Blood Pressure 96/51 L BP Systolic 96 BP Diastolic 51 Pulse Ox 98 98 11/24/21 21:56 11/24/21 22:12 11/24/21 22:27 Pulse Rate 96 94 92 Blood Pressure 111/70 108/68 101/65 BP Systolic 111 108 101 BP Diastolic 70 68 65 Pulse Ox Weight Weight: 82.463 kg Body Mass Index (BMI) 32.2 Physical Exam Const alert, oriented x3 and no apparent distress HEENT normocephalic Resp normal respiratory effort, normal air movement and clear to auscultation bilaterally Cardio regular rate and regular rhythm GI normal to inspection, nondistended, normoactive bowel sounds, soft to palpation, non-tender and non-distended Inspection: gravid Labs Labs Labs: Blood Type A POSITIVE Antibody Screen NEGATIVE Hct 37.9 % (37-47) Hgb 12.2 g/dL (12.0-15.0) Syphilis Total Ab Non-reactive Rubella IgG Antibody Reactive (Nonreactive) Hep Bs Antigen Non-Reactive (Nonreactive) Chlamydia DNA (LUCILA) Negative (Negative) Neisseria gonorrhoeae DNA (LUCILA) Negative (Negative) HIV 1&2 Antibody Non-Reactive (Nonreactive) Assessment & Plan (1) 38 weeks gestation of : PLAN: Cervix changed from 1-->3cm over observation Latent labor Expectant management at this time GBS neg (2) Polyhydramnios: QUALIFIERS: Fetus number: single or unspecified fetus Trimester: third trimester Qualified Code(s): O40.3XX0 - Polyhydramnios, third trimester, not applicable or unspecified (3) Headache: QUALIFIERS: Headache chronicity pattern: acute headache Headache type: unspecified Intractability: intractable Qualified Code(s): R51.9 - Headache, unspecified PLAN: Dfdx preeclampsia, labor Not alleviated with medication (4) Preeclampsia: QUALIFIERS: Trimester: third trimester Qualified Code(s): O14.93 - Unspecified pre-eclampsia, third trimester PLAN: Persistent headache with proteinuria on screening P/C Cannot rule out aypical preeclampsia Start magnesium
[2021-11-25] MEDS: Magnesium Sulfate 4gm/100mL 4 GM/100 ML IV.SOLN. IV (01:21)
--- NOTE | 2021-11-25 01:21 | NURSING ---
magnesium rate verified with Alexys Shah RN
[2021-11-25] MEDS: Magnesium Sulfate 4gm/100mL 2 GM/50 ML IV.SOLN. IV (01:47)
[2021-11-25] MEDS: Magnesium Sulfate 20 GM/500 ML BAG IV ×2 (02:00→10:29)
[2021-11-25] MEDS: Oxytocin 30 units/NS 500 ml 30 UNITS/500 ML IV.SOLN IV (03:59)
[2021-11-25] MEDS: Acetaminophen 500 MG Tablet PO (04:13)
[2021-11-25] MEDS: Lactated Ringers 500 ML 999 ML IV ×2 (04:53→06:57)
[2021-11-25] MEDS: 0.9% Saline Lock 10 ML Syringe IV ×2 (05:13→22:36)
[2021-11-25] MEDS: Ondansetron 4 MG/2 ML Vial IV ×2 (05:13→14:53)
[2021-11-25] MEDS: fentaNYL-bupivacaine (epidural) 100 ML BAG EPIDURAL (06:05)
[2021-11-25] MEDS: Lactated Ringers 1,000 ML 200 ML IV (06:57)
[2021-11-25 07:46] LABS: Hemoglobin 11.6 g/dL (12.0-15.0); Mean Corp Hgb Conc 31.4 g/dL (32-36); Mean Corpuscular Hgb 29.4 pg (27.0-32.0); Mean Corpuscular Volume 93.9 fL (81-99); Mean Platelet Vol. 10.5 fl (6.2-12.0); Platelet Count 157 K/mm3 (150-450); RBC Distribution Width CV 18.2 % (11.6-14.6); RBC Distribution Width SD 61.6 fl (35.1-43.9); Red Blood Count 3.94 M/mm3 (4.2-5.4); White Blood Count 11.7 K/mm3 (4.4-11.0)
--- NOTE | 2021-11-25 08:12 | PCM.PN.OB ---
Subjective Subjective Reports headache persists. No change from prior. Denies vision changes, shortness of breath, chest pain. Reports intermittent heart racing she attributes to anxiety as she passed a blood clot. She is comfortable otherwise with epidural. Objective Data Objective Data Vital Signs: Vital Signs Temp Pulse Resp BP Pulse Ox 97.0 F L 105 H 16 96/54 L 100 11/25/21 07:16 11/25/21 07:15 11/25/21 06:00 11/25/21 07:07 11/25/21 07:16 Oxygen Delivery Method Room Air Weight: 82.463 kg Body Mass Index (BMI) 32.2 Intake & Output: Intake and Output for Last 24 Hours 11/23/21 11/24/21 11/25/21 23:59 23:59 23:59 Intake Total 2382.37 / 2382.37 Output Total 450 / 450 Balance 1932.37 / 1932.37 Lab / Micro Data Result Diagrams: 11/25/21 07:35 11/24/21 21:55 Labs: Laboratory Results - last 24 hr 11/24/21 21:55: WBC 9.9, RBC 4.07 L, Hgb 12.2, Hct 37.9, MCV 93.1, MCH 30.0, MCHC 32.2, RDW Std Deviation 61.0 H, RDW Coeff of Domenica 18.0 H, Plt Count 181, MPV 10.6 11/24/21 21:55: U Random Total Protein 7.7, Urine Creatinine 24.40, Protein/Creatinin Ratio 316 H 11/24/21 21:55: Uric Acid 5.5, Lactate Dehydrogenase 159 11/24/21 21:55: Sodium 138, Potassium 3.8, Chloride 110 H, Carbon Dioxide 21.0, Anion Gap 7, BUN 8, Creatinine 0.70, Est GFR (MDRD) Af Amer 128, Est GFR (MDRD) Non-Af 106, BUN/Creatinine Ratio 11.4, Glucose 91, Calcium 8.7, Total Bilirubin 0.30, AST 16, ALT 27, Alkaline Phosphatase 203 H, Total Protein 6.5, Albumin 2.6 L, Globulin 3.9, Albumin/Globulin Ratio 0.7 L 11/25/21 00:00: Blood Type A POSITIVE, Antibody Screen NEGATIVE 11/25/21 07:35: WBC 11.7 H, RBC 3.94 L, Hgb 11.6 L, Hct 37.0, MCV 93.9, MCH 29.4, MCHC 31.4 L, RDW Std Deviation 61.6 H, RDW Coeff of Domenica 18.2 H, Plt Count 157, MPV 10.5 Micro: Microbiology 11/25/21 03:32 Nasal Secretion SARS-CoV-2 Antigen (Rapid) - Final Physical Exam Narrative GEN - NAD, AAO x 3 FHR 130, moderate variability, + accelerations, no decelerations TOCO 2-3/10 min SVE 6/90/-2 per recent RN exam Assessment & Plan (1) Preeclampsia: QUALIFIERS: Trimester: third trimester Qualified Code(s): O14.93 - Unspecified pre-eclampsia, third trimester PLAN: Magnesium sulfate (2) Headache: QUALIFIERS: Headache type: unspecified Headache chronicity pattern: acute headache Intractability: intractable Qualified Code(s): R51.9 - Headache, unspecified PLAN: Fiorecet (3) 38 weeks gestation of : PLAN: Bleed suspicious for partial abruption, I observed blood clot and pt with small amount of bleeding after prior vaginal exam >8 hours ago Cat I FHR Discussed with pt and family recommendation to continue in labor at this time given reassuring status with option for section as alternative. I reviewed with patient r/b vaginal delivery versus section. Pt understands however that there remains potential for emergent section however with continued expectant management and we reviewed risk profile of emergent versus scheduled. Patient and family given opportunity to ask questions and questions answered to their satisfaction. Will return to assess patient's preferences (4) Polyhydramnios: QUALIFIERS: Fetus number: single or unspecified fetus Trimester: third trimester Qualified Code(s): O40.3XX0 - Polyhydramnios, third trimester, not applicable or unspecified
--- NOTE | 2021-11-25 08:22 | NURSING ---
late entries due to pt care and unit acuity
--- NOTE | 2021-11-25 08:30 | PCM.PN.OB ---
Subjective Subjective Passed another clot and requests section. Objective Data Objective Data Vital Signs: Vital Signs Temp Pulse Resp BP Pulse Ox 97.0 F L 102 H 16 123/53 H 100 11/25/21 07:16 11/25/21 08:12 11/25/21 06:00 11/25/21 08:12 11/25/21 07:16 Oxygen Delivery Method Room Air Weight: 82.463 kg Body Mass Index (BMI) 32.2 Intake & Output: Intake and Output for Last 24 Hours 11/23/21 11/24/21 11/25/21 23:59 23:59 23:59 Intake Total 2382.37 / 2382.37 Output Total 450 / 450 Balance 1932.37 / 1932.37 Lab / Micro Data Result Diagrams: 11/25/21 07:35 11/24/21 21:55 Labs: Laboratory Results - last 24 hr 11/24/21 21:55: WBC 9.9, RBC 4.07 L, Hgb 12.2, Hct 37.9, MCV 93.1, MCH 30.0, MCHC 32.2, RDW Std Deviation 61.0 H, RDW Coeff of Domenica 18.0 H, Plt Count 181, MPV 10.6 11/24/21 21:55: U Random Total Protein 7.7, Urine Creatinine 24.40, Protein/Creatinin Ratio 316 H 11/24/21 21:55: Uric Acid 5.5, Lactate Dehydrogenase 159 11/24/21 21:55: Sodium 138, Potassium 3.8, Chloride 110 H, Carbon Dioxide 21.0, Anion Gap 7, BUN 8, Creatinine 0.70, Est GFR (MDRD) Af Amer 128, Est GFR (MDRD) Non-Af 106, BUN/Creatinine Ratio 11.4, Glucose 91, Calcium 8.7, Total Bilirubin 0.30, AST 16, ALT 27, Alkaline Phosphatase 203 H, Total Protein 6.5, Albumin 2.6 L, Globulin 3.9, Albumin/Globulin Ratio 0.7 L 11/25/21 00:00: Blood Type A POSITIVE, Antibody Screen NEGATIVE 11/25/21 07:35: WBC 11.7 H, RBC 3.94 L, Hgb 11.6 L, Hct 37.0, MCV 93.9, MCH 29.4, MCHC 31.4 L, RDW Std Deviation 61.6 H, RDW Coeff of Domenica 18.2 H, Plt Count 157, MPV 10.5 Micro: Microbiology 11/25/21 03:32 Nasal Secretion SARS-CoV-2 Antigen (Rapid) - Final Assessment & Plan (1) Vaginal bleeding in : PLAN: Total EBL approximately 200cc in the last hour Following discussion, plan for primary section. Reviewed with patient procedural r/b/i/a again as well as preop preperation, precautions to minimize complications, possible need for additional procedures and affect on future pregnancies. TXA T&C (2) Preeclampsia: QUALIFIERS: Trimester: third trimester Qualified Code(s): O14.93 - Unspecified pre-eclampsia, third trimester (3) Headache: QUALIFIERS: Headache type: unspecified Headache chronicity pattern: acute headache Intractability: intractable Qualified Code(s): R51.9 - Headache, unspecified (4) Polyhydramnios: QUALIFIERS: Fetus number: single or unspecified fetus Trimester: third trimester Qualified Code(s): O40.3XX0 - Polyhydramnios, third trimester, not applicable or unspecified (5) 38 weeks gestation of :
[2021-11-25] MEDS: Sodium Citrate/Citric Acid 30 ML UDC PO (08:42)
[2021-11-25] MEDS: Cefazolin 2 GM in 0.9% Normal Saline 100 ML IV (08:48)
--- NOTE | 2021-11-25 09:48 | EX.PCM.OBRPT ---
Assessment & Plan (1) delivery delivered: (2) Vaginal bleeding in : (3) Preeclampsia: QUALIFIERS: Trimester: third trimester Qualified Code(s): O14.93 - Unspecified pre-eclampsia, third trimester (4) Headache: QUALIFIERS: Headache type: unspecified Headache chronicity pattern: acute headache Intractability: intractable Qualified Code(s): R51.9 - Headache, unspecified (5) Polyhydramnios: QUALIFIERS: Fetus number: single or unspecified fetus Trimester: third trimester Qualified Code(s): O40.3XX0 - Polyhydramnios, third trimester, not applicable or unspecified Maternal Data Information CHANTELLE Calculator Estimated Delivery Date Method Current WG Current Estimate 12/03/21 Ultrasound #1 38w 6d Other Estimates 12/01/21 LMP (Uncertain) 39w 1d Details Operative Information Date of Procedure: 11/25/21 Pre-Operative Diagnosis: 1. 38 6/7 weeks gestation 2. Vaginal bleeding/Partial placental abruption 3. Atypical preeclampsia Post-Operative Diagnosis: 1. 38 6/7 weeks gestation 2. Vaginal bleeding/Partial placental abruption 3. Atypical preeclampsia Indications for : Suspected Abruptio Placenta Indications Narrative: 26-year-old 4 para 0-0-3-0 at 38-6/7 weeks gestational age admitted in labor undergoing augmentation with concern for atypical preeclampsia due to persistent headache x3 days and proteinuria despite normal blood pressures. She had passage of few clots concerning for partial placental abruption with category 1 heart rate tracing intrapartum and made cervical change to 6 cm. Following counseling she opted to proceed with section. Procedural risks, benefits, indications and continued labor as an alternative were discussed. Patient and family given opportunity to ask questions and questions were answered to their satisfaction. Classification: MATTHEW Procedure Type: low transverse structural iron worker #1: Zeyad Montano Type of Anesthesia: Epidural Anesthesiologist: Bekah Hawk Antibiotic Given: Ancef 2 grams IV x1 and Zithromax 500 mg/5 mL X1 Drain: Davis to straight drain Estimated Blood Loss: 600 ml Fluids Replaced: 1200 ml Procedure Start Time: 09:02 Procedure Stop Time: 09:38 Time of Delivery: 09:07 Findings Description of Procedure: The patient was taken to the operating room and spinal analgesia was administered. She is placed in a dorsal supine position with left lateral tilt. The perineum and abdomen were prepped and draped in sterile fashion. And the spinal was found to be adequate. A Pfannenstiel incision was made using a scalpel and brought down to incise the subcutaneous tissue and rectus fascia at the midline. Subcutaneous tissue was bluntly dissected off the fascia laterally. The fascial incision was dissected laterally and cephalad using curved Chapin scissors. The superior leaflet of the rectus fascia was grasped using Aida clamps and bluntly dissected and sharply dissected from the underlying rectus muscle. In a similar fashion the inferior rectus fascia was dissected from the underlying muscle. The rectus muscles were bluntly at the midline. The peritoneum was identified and entered [sharply]. The bladder blade was placed into the abdomen and the vesicouterine peritoneal fold identified. The fold was incised and a bladder flap created. Bladder blade was then repositioned to the abdomen. A low transverse hysterotomy was made using the [Metzenbaum scissors] to level of the membranes. The hysterotomy was extended bluntly cephalad and caudad. The head was elevated and brought to the level of the hysterotomy and the infant delivered revealing vigorous [female] infant. The cord was doubly clamped and cut after 60 seconds. The infant was passed to awaiting [nursery personnel]. The placenta was [expressed] from the uterus and appeared intact on inspection. The uterus was cleared of debris. The hysterotomy was then repaired using 0 Vicryl running lock suture. A second imbricating layer was also placed for additional hemostasis. The bladder blade was removed. The anterior cul-de-sac was cleared of debris. The peritoneum was reapproximated using 2-0 Vicryl running suture. The rectus fascia was closed using 0 Vicryl running suture. small capillary bleeding of the subcutaneous tissue was controlled using the Bovie device. The subcutaneous tissue was reapproximated using 2-0 Vicryl. The skin was closed using 4-0 Monocryl subcuticularly by the PERSONAL INJURY LEGAL ASSISTANT under my supervision. Mepilex occlusive dressing was placed over the incision. The fundus was firm. The patient was then transferred to the recovery room without complication. Sponge, instrument, and needle counts were correct ?2. Presentation: Positive for Vertex Amniotic Membrane Rupture Type: Artificial Time of Membrane Ruptured: 0307h Amniotic Fluid Description: - (Red-tinged) Placental Delivery Description: Expressed Placenta Disposition: [facility] Cord Vessel Description: 3 Vessels Cord Entanglement: None Cord Gases: ABG and VBG A Gender: Female (1 minute): 8 (5 minute): 9 Delayed Cord Clamping: Yes Complications Risks of Surgery Discussed w/Patient: Bleeding, Anesthesia Risks, Infection, Injury to surrounding structure(s) including bowel and bladder and -
[2021-11-25] MEDS: Oxytocin 30 units/NS 500 ml 30 UNITS/500 ML IV.SOLN 167 UNITS IV (09:55)
[2021-11-25] MEDS: Ketorolac 30 MG/ML Syringe IV ×3 (10:22→22:36)
--- NOTE | 2021-11-25 10:31 | NURSING ---
1025 verified with physician to start mag sulfate, ok to start
[2021-11-25] MEDS: Acetaminophen 500 MG Tablet 1000 MG PO ×2 (10:47→22:36)
--- NOTE | 2021-11-25 11:33 | NURSING ---
1130 epidural cath out and blue tip intact
[2021-11-25] MEDS: Lactated Ringers 1,000 ML 100 ML IV (13:47)
--- NOTE | 2021-11-25 22:12 | NURSING ---
infusion stopped per Dr. Lana Perry's order.
[2021-11-26] VITALS (12 sets, daily range): BP systolic 89–102; BP diastolic 38–60; PULSE 73–85; RESP 15–16; TEMP 36.1–36.7; O2SAT 94–99
--- NOTE | 2021-11-26 01:02 | NURSING ---
pt called this RN to room to evaluate a spot of blood that was on the chux pad when pt got up after sitting on the couch. pt had been sitting on the couch for approx. 1 hour to nurse . when pt got up, her maxi pad was folded up and had not collected any blood. there was a small cheesh-na of red blood on green pad that pt had been sitting on. pt ambulated to the bathroom and did pericare. no blood clots were present and there was a scant amount of red blood. pt does not have any dizziness, color is good, and BP have been stable - slightly low, but normal for pt since delivery. fundal check completed; fundus is firm and at umbilicus. advised pt of all clinical findings and advised pt of reasons to call nurse. pt voiced understanding. will continue to monitor
[2021-11-26] MEDS: Ketorolac 30 MG/ML Syringe IV (04:57)
[2021-11-26] MEDS: 0.9% Saline Lock 10 ML Syringe IV (04:58)
[2021-11-26] MEDS: Acetaminophen 500 MG Tablet 1000 MG PO ×4 (04:59→23:38)
[2021-11-26 05:36] LABS: Hematocrit 31.6 % (37-47); Hemoglobin 10.3 g/dL (12.0-15.0); Mean Corp Hgb Conc 32.6 g/dL (32-36); Mean Corpuscular Hgb 29.8 pg (27.0-32.0); Mean Corpuscular Volume 91.3 fL (81-99); Mean Platelet Vol. 10.3 fl (6.2-12.0); Platelet Count 167 K/mm3 (150-450); RBC Distribution Width CV 18.2 % (11.6-14.6); RBC Distribution Width SD 60.3 fl (35.1-43.9); Red Blood Count 3.46 M/mm3 (4.2-5.4); White Blood Count 12.6 K/mm3 (4.4-11.0)
--- NOTE | 2021-11-26 10:16 | PCM.PN.OB ---
Subjective Subjective Postop day 1. Pain well controlled. Patient felt a little anxious yesterday, feeling okay today. Lochia minimal. Breast-feeding going well. Objective Data Objective Data Vital Signs: Vital Signs Temp Pulse Resp BP Pulse Ox 97.4 F L 80 16 94/60 99 11/26/21 08:30 11/26/21 08:30 11/26/21 08:30 11/26/21 08:30 11/26/21 08:30 Oxygen Delivery Method Room Air Weight: 82.463 kg Body Mass Index (BMI) 32.2 Intake & Output: Intake and Output for Last 24 Hours 11/24/21 11/25/21 11/26/21 23:59 23:59 23:59 Intake Total 5175.74 / 5175.74 Output Total 2400 / 2400 2700 / 2700 Balance 2775.74 / 2775.74 -2700 / -2700 Lab / Micro Data Result Diagrams: 11/26/21 05:27 11/24/21 21:55 Labs: Laboratory Results - last 24 hr 11/26/21 05:27: WBC 12.6 H, RBC 3.46 L, Hgb 10.3 L, Hct 31.6 L, MCV 91.3, MCH 29.8, MCHC 32.6, RDW Std Deviation 60.3 H, RDW Coeff of Domenica 18.2 H, Plt Count 167, MPV 10.3 Micro: Microbiology 11/25/21 03:32 Nasal Secretion SARS-CoV-2 Antigen (Rapid) - Final Physical Exam Const alert, oriented x3 and no apparent distress HEENT normocephalic Head and Scalp: atraumatic Neck full ROM Resp normal respiratory effort Cardio regular rate GI normal to inspection, nondistended, normoactive bowel sounds GI Narrative: Uterus 2 cm below umbilicus. Dressing clean and dry. Back/Spine normal ROM Extremity normal to inspection Extremity Narrative: Minimal pedal edema Neuro no focal motor deficits and no sensory deficits noted Psych mental status grossly normal and affect normal Assessment & Plan (1) delivery delivered: PLAN: Postoperative day 1 status post primary section. Complicated by severe preeclampsia based on persistent headache and proteinuria. Patient is status post magnesium sulfate. Headache resolved. Blood pressures well controlled. Plan to repeat CBC and CMP in the morning. Patient has history of anxiety, felt anxious yesterday, feeling better today. Family is concerned about her developing depression. Had long conversation about baby blues and depression, when to notify provider that she is in need of assistance. Declines medication at this time aside from Vistaril to use as needed. Plan for discharge home postop day 2-3. (2) Severe pre-eclampsia affecting childbirth:
[2021-11-26] MEDS: Senna/Docusate Sodium 1 Tablet PO (10:28)
[2021-11-26] MEDS: Ibuprofen 600 MG Tablet PO ×3 (10:28→23:13)
[2021-11-26] MEDS: Prenatal Vits Tablet 1 TABLET PO (12:04)
[2021-11-26] MEDS: oxyCODONE 5 MG Tablet PO (19:22)
[2021-11-27 01:00] VITALS: BP 106/43; PULSE 76; RESP 16; TEMP 36.8; O2SAT 97
[2021-11-27] MEDS: Ibuprofen 600 MG Tablet PO (05:39)
[2021-11-27] MEDS: Acetaminophen 500 MG Tablet 1000 MG PO (05:44)
[2021-11-27 06:05] LABS: Hematocrit 30.6 % (37-47); Hemoglobin 9.6 g/dL (12.0-15.0); Mean Corp Hgb Conc 31.4 g/dL (32-36); Mean Corpuscular Hgb 30.2 pg (27.0-32.0); Mean Corpuscular Volume 96.2 fL (81-99); Mean Platelet Vol. 10.4 fl (6.2-12.0); Platelet Count 165 K/mm3 (150-450); RBC Distribution Width CV 18.6 % (11.6-14.6); RBC Distribution Width SD 64.7 fl (35.1-43.9); Red Blood Count 3.18 M/mm3 (4.2-5.4); White Blood Count 9.9 K/mm3 (4.4-11.0)
[2021-11-27 06:50] LABS: ALB/GLOB Ratio 0.6 RATIO (0.9-2.4); AST(SGOT) 16 U/L (15-37); Alanine Aminotransfer ALT/SGPT 21 U/L (13-56); Albumin, Serum 2.1 g/dL (3.2-5.0); Alkaline Phosphatase 132 U/L (45-117); Anion Gap 5 (5-15); BUN 12 mg/dL (7-18); BUN/Creat Ratio 16.6 RATIO (10-20); Calcium,Total 8.5 mg/dL (8.5-10.1); Chloride 112 mmol/L (98-107); Creatinine, Serum 0.72 mg/dL (0.55-1.02); EST Glomerular Filtration Rate 103 mL/min (>60); Est Glom Filt Rate - Afr Amer 124 mL/min (>60); Estimated Creatinine Clearance 97.09 ml/min; Globulin 3.3 g/dL (2.2-4.2); Glucose 80 mg/dL (74-106); Potassium 4.2 mmol/L (3.5-5.1); Protein, Total 5.4 g/dL (6.4-8.2); Sodium Level 140 mmol/L (136-145)
[2021-11-27 08:07] VITALS: BP 99/46; PULSE 92; RESP 16; TEMP 36.6; O2SAT 97
--- NOTE | 2021-11-27 09:07 | PCM.PN.OB ---
Subjective Subjective No complaints. Reports feels well. Passing flatus, had a bowel movement. Pain is controlled. Denies heavy lochia. OOB and voiding without difficulty. Tolerates PO. She reports less anxiety today now that she has been off the magnesium. She looks forward to going home. Objective Data Objective Data Vital Signs: Vital Signs Temp Pulse Resp BP Pulse Ox 97.9 F 92 16 99/46 L 97 11/27/21 08:07 11/27/21 08:07 11/27/21 08:07 11/27/21 08:07 11/27/21 08:07 Oxygen Delivery Method Room Air Weight: 82.463 kg Body Mass Index (BMI) 32.2 Intake & Output: Intake and Output for Last 24 Hours 11/25/21 11/26/21 11/27/21 23:59 23:59 23:59 Intake Total 5175.74 / 5175.74 Output Total 2400 / 2400 3100 / 3100 Balance 2775.74 / 2775.74 -3100 / -3100 Lab / Micro Data Result Diagrams: 11/27/21 05:50 11/27/21 05:50 Labs: Laboratory Results - last 24 hr 11/27/21 05:50: WBC 9.9, RBC 3.18 L, Hgb 9.6 L, Hct 30.6 L, MCV 96.2 D, MCH 30.2, MCHC 31.4 L, RDW Std Deviation 64.7 H, RDW Coeff of Domenica 18.6 H, Plt Count 165, MPV 10.4 11/27/21 05:50: Sodium 140, Potassium 4.2, Chloride 112 H, Carbon Dioxide 23.0, Anion Gap 5, BUN 12, Creatinine 0.72, Estim Creat Clear Calc 97.09, Est GFR (MDRD) Af Amer 124, Est GFR (MDRD) Non-Af 103, BUN/Creatinine Ratio 16.6, Glucose 80, Calcium 8.5, Total Bilirubin 0.20, AST 16, ALT 21, Alkaline Phosphatase 132 H, Total Protein 5.4 L, Albumin 2.1 L, Globulin 3.3, Albumin/Globulin Ratio 0.6 L Micro: Microbiology 11/25/21 03:32 Nasal Secretion SARS-CoV-2 Antigen (Rapid) - Final Physical Exam Const alert, oriented x3 and no apparent distress Resp normal respiratory effort, normal air movement and clear to auscultation bilaterally Cardio regular rate, regular rhythm, S1 normal heart sound and S2 normal heart sound GI normal to inspection, nondistended, normoactive bowel sounds, soft to palpation, non-tender and non-distended GI Narrative: incisional dressing c/d/i Manual OB Exam: other lochia scant Uterus Palpation: uterus fundus firm Extremity no calf tenderness Extremity Narrative: +2 b/l LE edema Assessment & Plan (1) delivery delivered: PLAN: Routine postop care d/c home today (2) Preeclampsia: QUALIFIERS: Trimester: third trimester Qualified Code(s): O14.93 - Unspecified pre-eclampsia, third trimester PLAN: Patient asx this morning, no si/sx worsening
--- NOTE | 2021-11-27 09:13 | PCM.DC ---
Discharge Instructions Diet Discharge Diet: No restrictions Activity Discharge Activity: Return to Normal Activity and May Shower May resume sexual activity in: 4-6 weeks Lifting Restrictions: 10 lb Dressing / Incision Call your doctor if you observe: Using more than 1 pad per hour, Shortness of breath, Chest pain, Calf discomfort, Uncontrolled pain and - (Persistent or severe headache) Suture Line Care: Avoid Pulling/Pushing Remove Dressing in: 4 days Cleanse incision/area with: Soap & Water Follow Up Care Please Follow Up With: Valentino Jeff MD When: 2 weeks for incision and BP check 6 weeks for visit Test Results: Test results from this visit will be discussed in further detail at your follow-up appointment, if applicable. Discharge Plan Admission Admit Date/Time: 11/25/21 00:45 Primary Reason for Your Visit: delivery Attending Provider: Gisella Gonzalez Primary Care Provider: Care Physician,Mar Primary Discharge Orders/Prescriptions Prescriptions: New oxycodone 5 mg Tablet 5 mg PO Q6H PRN (Reason: pain) 4 Days Qty: 10 RF: 0 hydroxyzine pamoate [Vistaril] 25 mg capsule 25 mg PO TID PRN (Reason: anxiety) 30 Days Qty: 30 RF: 1 Continued albuterol sulfate 1 PUFF inhaler 1 puff inhalation Q6H PRN PRN (Reason: Sob &/Or Wheezing) RF: 0 idamxftc-fan-Gv-FA 1 mg Tablet 1 tab PO DAILY RF: 0 Claritin PRN (Reason: allergies) RF: 0 Discontinued aspirin 81 mg Capsule 81 mg PO DAILY RF: 0 Referrals / Follow Up: Care Physician,No Primary [Primary Care Provider] -
[2021-11-27 11:26] VITALS: RESP 16
== END 2021-11-27 12:03 | disposition home or self-care (01) | DRG 788 ==
LOC: WPOUT 00:51 → WP 00:51
PROVIDERS: Student in an Organized Health Care Education/Training Program; Admitting Provider Obstetrics & Gynecology; Visit Provider Obstetrics & Gynecology
DX: O14.14 Severe pre-eclampsia complicating childbirth (principal); O45.93 Premature separation of placenta, unspecified, third trimester; F41.9 Anxiety disorder, unspecified; O40.3XX0 Polyhydramnios, third trimester, not applicable or unspecified; Z3A.38 38 weeks gestation of pregnancy; Z37.0 Single live birth; O99.344 Other mental disorders complicating childbirth
CPT/HCPCS: 59025; 59050; 76815; 80053; 82570; 83615; 84156; 84550; 85027; 86850; 86900; 86901; 86920; 87426; 99218; 99251; J7120; A4216; G0378; G0463; J2405

== ENCOUNTER → 2022-10-03 | Outpatient (CLI) | payer OTHER, SELFPAY ==
[2022-10-03 12:12] LABS: Absolute Lymphocyte Count 1.98 X10^3/uL (0.83-4.51); Absolute Neutrophil Count 3.3 X10^3/uL (2.0-7.7); Basophil# 0.03 X10^3/uL; Basophil% 0.5 % (0-1); Eosinophil# 0.13 X10^3/uL; Eosinophils% 2.2 % (0-5); Hematocrit 48.1 % (37-47); Hemoglobin 14.6 g/dL (12.0-15.0); Lymphocyte # 1.98 X10^3/ul (0.83-4.51); Lymphocyte % 33.6 % (19-41); Mean Corp Hgb Conc 30.4 g/dL (32-36); Mean Corpuscular Hgb 28.2 pg (27.0-32.0); Mean Corpuscular Volume 92.9 fL (81-99); Mean Platelet Vol. 10.5 fl (6.2-12.0); Monocyte# 0.43 X10^3/uL; Monocyte% 7.3 % (0-10); NRBC Flagged by Analyzer 0 % (0-5); Neutrophil # 3.31 X10^3/uL (2.7-7.7); Neutrophil % 56.1 % (47-70); Platelet Count 238 K/mm3 (150-450); RBC Distribution Width CV 13.7 % (11.6-14.6); RBC Distribution Width SD 46.5 fl (35.1-43.9); Red Blood Count 5.18 M/mm3 (4.2-5.4); White Blood Count 5.9 K/mm3 (4.4-11.0)
[2022-10-03 13:52] LABS: Anion Gap 9 (5-15); BUN 13 mg/dL (7-18); BUN/Creat Ratio 20.1 RATIO (10-20); Chloride 106 mmol/L (98-107); Cholesterol 169 mg/dL (200); Creatinine, Serum 0.65 mg/dL (0.55-1.02); EST Glomerular Filtration Rate 116 mL/min (>60); Est Glom Filt Rate - Afr Amer 140 mL/min (>60); Glucose 72 mg/dL (74-106); High Density Lipoprotein 65 mg/dL; Potassium 4.2 mmol/L (3.5-5.1); Sodium Level 140 mmol/L (136-145); Thyroid Stim Hormone (TSH) 0.43 uIU/mL (0.358-3.74); Triglycerides 62 mg/dL; Very Low Density Lipoprotein 12 mg/dL (5-40)
[2022-10-07 18:07] LABS: Protein S, Free 93 % (61-136)
[2022-10-07 20:55] LABS: Protein C Antigen 91 % (60-150); Protein S, Total 72 % (60-150)
== END | disposition home or self-care (01) ==
LOC: MFPLAB 10:08
PROVIDERS: PCP Family Medicine; Referring Provider Family Medicine; Visit Provider Family Medicine
DX: Z00.00 Encounter for general adult medical examination without abnormal findings (principal); Z87.59 Personal history of other complications of pregnancy, childbirth and the puerperium
CPT/HCPCS: 36415; 80048; 80061; 81241; 84443; 85025; 85302; 85305; 85306

== ENCOUNTER → 2022-12-04 | Outpatient (CLI) | payer OTHER, SELFPAY ==
--- NOTE | 2022-12-04 17:58 | CT_ITS ---
STUDY: CT CHEST WITH CONTRAST REASON FOR EXAM: Female, 27 years old. LUNG NODULE F/U . SOB OFF AND ON RADIATION DOSAGE (If Supplied By Facility): CTDIvol = ( 8.01 ) mGy, DLP = ( 236.24 ) mGycm TECHNIQUE: Transaxial imaging was performed following intravenous administration of IV 75mL Isovue-300. Multiplanar coronal and sagittal images were reformatted. Individualized dose optimization techniques were used for this CT. COMPARISON: No relevant priors. FINDINGS: CHEST There is an 8 mm calcified nodule in the peripheral lateral aspect of the left lower lobe. There is no demonstrated pleural abnormality. Normal heart and pericardium. Normal mediastinum. Normal hilar regions. Normal unenhanced pulmonary arteries. Normal aorta arch and descending thoracic aorta. Normal osseous structures. There is no demonstrated abnormality of the visualized upper abdomen. CT/Chest WITH Contrast IMPRESSION: A millimeter calcified granuloma in the peripheral lateral aspect of the left lower lobe as seen on axial image #70. Electronically Signed: Lucius Huff MD at 15:10 EDT ,
== END | disposition home or self-care (01) ==
LOC: CT 17:55
PROVIDERS: PCP Family Medicine; Referring Provider Family Medicine; Visit Provider Family Medicine
DX: R91.1 Solitary pulmonary nodule (principal)
CPT/HCPCS: 71260; Q9967

== ENCOUNTER → 2023-04-09 | Outpatient (CLI) | payer BC, SELFPAY ==
[2023-04-14 21:05] LABS: HPV Reflexed? NOT INDICATED
== END | disposition home or self-care (01) ==
LOC: LABSPEC 10:49
PROVIDERS: PCP Family Medicine; Visit Provider Nurse Practitioner Women's Health
DX: Z12.4 Encounter for screening for malignant neoplasm of cervix (principal)
CPT/HCPCS: 88175; G0145

== ENCOUNTER → 2023-04-14 | Outpatient (CLI) | payer BC, SELFPAY ==
[2023-04-14 11:16] LABS: Absolute Lymphocyte Count 1.85 X10^3/uL (0.83-4.51); Absolute Neutrophil Count 4.2 X10^3/uL (2.0-7.7); Basophil# 0.02 X10^3/uL; Basophil% 0.3 % (0-1); Eosinophil# 0.07 X10^3/uL; Eosinophils% 1.1 % (0-5); Hemoglobin 13.3 g/dL (12.0-15.0); Lymphocyte # 1.85 X10^3/ul (0.83-4.51); Lymphocyte % 28.2 % (19-41); Mean Corp Hgb Conc 32.4 g/dL (32-36); Mean Corpuscular Hgb 29.2 pg (27.0-32.0); Mean Corpuscular Volume 89.9 fL (81-99); Mean Platelet Vol. 10.1 fl (6.2-12.0); Monocyte# 0.45 X10^3/uL; Monocyte% 6.9 % (0-10); NRBC Flagged by Analyzer 0 % (0-5); Neutrophil # 4.16 X10^3/uL (2.7-7.7); Neutrophil % 63.3 % (47-70); Platelet Count 223 K/mm3 (150-450); RBC Distribution Width CV 13.7 % (11.6-14.6); RBC Distribution Width SD 45.3 fl (35.1-43.9); Red Blood Count 4.56 M/mm3 (4.2-5.4); White Blood Count 6.6 K/mm3 (4.4-11.0)
[2023-04-14 11:27] LABS: AST(SGOT) 9 U/L (15-37); Alanine Aminotransfer ALT/SGPT 23 U/L (13-56); Albumin, Serum 3.4 g/dL (3.2-5.0); Alkaline Phosphatase 55 U/L (45-117); Anion Gap 5 (5-15); BUN 10 mg/dL (7-18); BUN/Creat Ratio 16.2 RATIO (10-20); Calcium,Total 8.6 mg/dL (8.5-10.1); Chloride 107 mmol/L (98-107); Creatinine, Serum 0.62 mg/dL (0.55-1.02); EST Glomerular Filtration Rate 121 mL/min (>60); Est Glom Filt Rate - Afr Amer 147 mL/min (>60); Globulin 3.5 g/dL (2.2-4.2); Glucose 81 mg/dL (74-106); LDH 148 U/L (84-246); Potassium 3.3 mmol/L (3.5-5.1); Protein, Total 6.9 g/dL (6.4-8.2); Protein, Urine (Random) 24.6 mg/dL (<11.9); Protein:Creat Ratio 141 mg/g CRE (0-200); Sodium Level 137 mmol/L (136-145)
[2023-04-14 12:01] LABS: HIV - WCH Non-Reactive (Nonreactive); Hepatitis B Surface Antigen Non-Reactive (Nonreactive); Hepatitis C Antibody Non-Reactive (Nonreactive); Rubella IgG Reactive (Nonreactive); Syphilis Antibodies Non-reactive
[2023-04-15 05:07] LABS: V-Zoster IgG (Immunity) 807 index (Immune >165)
== END | disposition home or self-care (01) ==
LOC: WOBLAB 10:04
PROVIDERS: PCP Family Medicine; Visit Provider Nurse Practitioner Women's Health
DX: Z34.81 Encounter for supervision of other normal pregnancy, first trimester (principal); Z3A.00 Weeks of gestation of pregnancy not specified
CPT/HCPCS: 36415; 80053; 82570; 83615; 84156; 85025; 86703; 86762; 86780; 86787; 86803; 87086; 87340

== ENCOUNTER 2023-11-01 12:45 | Outpatient (CLI) | payer MEDICAID, SELFPAY ==
[2023-11-01 12:53] VITALS: BMI 31.1
--- OUTSIDE RECORDS SUMMARY | 2023-11-01 13:00 | XMS RPT_ITS | CCD ---
Author Name Unknown Address [address] [place] [address] Organization [facility] Care Team Providers Care Sprayer Automatic Spray Machine Name Role Phone No, Physician Primary Care Provider UnavailDIONE Valdez Attending Unavailable NO, PHYSICIAN Primary Care Unavailable Unavailable Primary Care Provider UnavailDIONE Valdez Attending Unavailable NO, PHYSICIAN Primary Care Unavailable Unavailable Primary Care Provider Unavailabl e SUSI, JUSTINE Attending Unavailable HAURY, PRATIMA Attending Unavailable PLOTTS, JUSTINE Attending Unavailable HAURY, PRATIMA Attending Unavailable PLOTTS, JUSTINE Attending Unavailable NEYANANYAT HALINA ATWOODRE Referring Unavail able PLOTTS, JUSTINE Attending Unavailable NEYHART AWTOOD, SHEA Referring Unavail able HAURY, PRATIMA Referring Unavailable ТАТЬЯНА MORIN Attending Unavailable PLOTTS, JUSTINE Attending Unavailable PLOTTS, JUSTINE Referring Unavailable PLOTTS, JUSTINE Attending Unavailable WISWELLAZUL Referring Unavailable NEYHART ATWOOD, SHEA Attending Unavail able HAURY, PRATIMA Referring Unavailable PLOTTS, JUSTINE Referring Unavailable MARÍA DUNHAM Attending Unavailable NEYHART ATWOOD, SHEA Attending Unavail able PLOTTS, JUSTINE Referring Unavailable PLOTTS, JUSTINE Attending Unavailable ТАТЬЯНА MORIN Attending Unavailable PLOTTS, JUSTINE Referring Unavailable PLOTTS, JUSTINE Referring Unavailable PLOTTS, JUSTINE Referring Unavailable HAURY, PRATIMA Referring Unavailable PLOTTS, JUSTINE Referring Unavailable Medications Current Medications Medication Drug Class(es) Dates Sig (Normalized) Sig (Original) fluconazole 150 mg oral tablet (2 sources) Azole Antifungal Start: 05-12-2023 End: 05-13-2023 take 1 tablet by mouth once daily fluconazole (DIFLUCAN) 150 mg tablet Take 1 tablet by mouth once daily for 1 day. 1 tablet 0 05/12/2023 05/13/2023 Active Completed/Discontinued Medications Medication Drug Class(es) Dates Sig (Normalized) Sig (Original) acyclovir 400 mg oral tablet (3 sources) Herpesvirus Nucleoside Analog DNA Polymerase Inhibitor, Herpes Simplex Virus Nucleoside Analog DNA Polymerase Inhibitor, Herpes Zoster Virus Nucleoside Analog DNA Polymerase Inhibitor Start: 10-21-2023 take 1 tablet by mouth three times daily acyclovir (ZOVIRAX) 400 mg tablet Take 1 tablet by mouth three times a day. 90 tablet 4 10/21/2023 Active Problems Active Problems Problem Classification Problem Date Documented Da te Episodic/Chronic Abdominal pain (1 source) Pelvic and perineal pain; Translations: [Pelvic pain during ] Onset: 09-23-2023 Episodic Asthma (1 source) Mild intermittent asthma; Translations: [Mild intermittent asthma with (acute) exacerbation] Chronic Biliary tract disease (1 source) Obstruction of bile duct; Translations: [Cholestasis during in third trimester] Onset: 10-15-2023 Chronic Blindness and vision defects (3 sources) Visual disturbance; Translations: [Unspecified visual disturbance] Onset: 08-25-2023 08-25-2023 Episodic Genitourinary symptoms and ill-defined conditions (1 source) Scalding pain on urination ; Translations: [Dysuria] 05-11-2023 Episodic Immunizations and screening for infectious disease (4 sources) Contact with and (suspected) exposure to other viral communicable diseases; Translations: [Vaccination needed] Onset: 08-24-2020 Episodic Other complications of (1 source) Nausea and vomiting; Translations: [Vomiting of , unspecified] 04-21-2023 Episodic Other complications of (1 source) Supervision of with history of infertility, first trimester; Translations: [Supervision of high-risk with history of infertility] 04-21-2023 Episodic Other complications of (1 source) Pain in female pelvis; Translations: [Other specified related conditions, unspecified trimester] 07-28-2023 Episodic Other complications of (12 sources) History of pre-eclampsia; Translations: [Supervision of with other poor reproductive or obstetric history, unspecified trimester] Onset: 09-24-2023 10-13-2023 Episodic Other complications of (9 sources) High risk ; Translations: [Supervision of other high risk pregnancies, third trimester] Onset: 09-24-2023 09-29-2023 Episodic Other complications of (13 sources) Cholestasis of ; Translations: [Liver and biliary tract disorders in , third trimester] Onset: 10-15-2023 10-15-2023 Episodic Other complications of (1 source) Liver and biliary tract disorders in , third trimester; Translations: [Cholestasis during in third trimester] Onset: 10-15-2023 Episodic Other complications of (1 source) Supervision of with other poor reproductive or obstetric history, unspecified trimester; Translations: [History of pre-eclampsia in prior , currently ] Onset: 09-24-2023 Episodic Other complications of (1 source) Other specified related conditions, unspecified trimester; Translations: [Pelvic pain during ] Onset: 09-23-2023 Episodic Other gastrointestinal disorders (1 source) Diarrhea; Translations: [Diarrhea, unspecified type] Episodic Other inflammatory condition of skin (11 sources) Psoriasis; Translations: [Other psoriasis] Onset: 10-14-2006 10-14-2006 Chronic Other inflammatory condition of skin (11 sources) Pruritus, unspecified; Translations: [Unspecified pruritic disorder] Onset: 10-14-2006 10-13-2023 Episodic Other and delivery including normal (5 sources) Gestational age unknown ; Translations: [Encounter for supervision of normal , unspecified, unspecified trimester] Onset: 08-25-2023 04-16-2023 Episodic Other upper respiratory infections (2 sources) Sore throat symptom; Translations: [Acute pharyngitis, unspecified] Episodic Previous (1 source) Maternal care for unspecified type scar from previous delivery; Translations: [History of delivery, currently ] Onset: 09-24-2023 Episodic Residual codes; unclassified (1 source) Gestation period, 8 weeks; Translations: [8 weeks gestation of ] 04-21-2023 Episodic Residual codes; unclassified (10 sources) History of placental abruption; Translations: [Personal history of other complications of , childbirth and the puerperium] Onset: 09-24-2023 04-21-2023 Episodic Residual codes; unclassified (1 source) Gestation period, 12 weeks; Translations: [12 weeks gestation of ] 05-14-2023 Episodic Residual codes; unclassified (9 sources) Gestation period, 22 weeks; Translations: [22 weeks gestation of ] Onset: 09-23-2023 07-28-2023 Episodic Residual codes; unclassified (1 source) Gestation period, 33 weeks; Translations: [33 weeks gestation of ] 10-13-2023 Episodic Residual codes; unclassified (3 sources) Gestation period, 34 weeks; Translations: [34 weeks gestation of ] 10-15-2023 Episodic Residual codes; unclassified (2 sources) Gestation period, 35 weeks; Translations: [35 weeks gestation of ] 10-24-2023 Episodic Residual codes; unclassified (1 source) 34 weeks gestation of ; Translations: [34 weeks gestation of ] Onset: 10-17-2023 Episodic Residual codes; unclassified (1 source) 33 weeks gestation of ; Translations: [33 weeks gestation of ] Onset: 10-13-2023 Episodic Residual codes; unclassified (2 sources) Personal history of other complications of , childbirth and the puerperium; Translations: [History of polyhydramnios] Onset: 09-24-2023 Episodic Residual codes; unclassified (1 source) History of uterine scar from previous surgery; Translations: [History of section] Onset: 09-24-2023 Episodic Residual codes; unclassified (1 source) 31 weeks gestation of ; Translations: [31 weeks gestation of ] Onset: 09-24-2023 Episodic Residual codes; unclassified (1 source) 22 weeks gestation of ; Translations: [22 weeks gestation of ] Onset: 09-23-2023 Episodic Residual codes; unclassified (1 source) 29 weeks gestation of ; Translations: [29 weeks gestation of ] Onset: 09-15-2023 Episodic Viral infection (1 source) Disease caused by 2019-nCoV; Translations: [COVID-19] Episodic Past or Other Problems Problem Classification Problem Date Documented Da te Episodic/Chronic Other and unspecified benign neoplasm (19 sources) Benign tumor of head and neck; Translations: [Other benign neoplasm of skin of scalp and neck] Onset: 03-12-2006 03-12-2006 Episodic Other gastrointestinal disorders (2 sources) Diarrhea, unspecified; Translations: [Diarrhea, unspecified] Onset: 08-24-2020 Episodic Other inflammatory condition of skin (11 sources) Seborrheic dermatitis; Translations: [Seborrheic dermatitis, unspecified] Onset: 10-14-2006 10-14-2006 Episodic Other inflammatory condition of skin (11 sources) Pruritus of skin; Translations: [Pruritus, unspecified] Onset: 10-14-2006 10-14-2006 Episodic Other injuries and conditions due to external causes (11 sources) Superficial injury; Translations: [Unspecified multiple injuries, initial encounter] Onset: 10-14-2006 10-14-2006 Episodic Other skin disorders (11 sources) Disorder of skin and/or subcutaneous tissue; Translations: [Disorder of the skin and subcutaneous tissue, unspecified] Onset: 03-05-2006 03-05-2006 Episodic Residual codes; unclassified (1 source) 15 weeks gestation of ; Translations: [15 weeks gestation of ] Onset: 07-03-2023 Episodic Skin and subcutaneous tissue infections (11 sources) Pyoderma; Translations: [Pyoderma] Onset: 10-14-2006 10-14-2006 Episodic Results Test Name Value Interpretation Reference Range Facil ity Vital Signs Date Time Vital Sign Value Performing Clinician Facility 10-27-2023 08:00-0500 Body weight 78.47 kg Nst Wstr Work Phone: [facility] 10-27-2023 08:00-0500 Diastolic blood pressure 62 mm[Hg] Nst Wstr Work Phone: [facility] 10-27-2023 08:00-0500 Systolic blood pressure 106 mm[Hg] Nst Wstr Work Phone: [facility] 10-24-2023 12:27-0500 Diastolic blood pressure 66 mm[Hg] Ob Ultrasound Work Phone: [facility] 10-24-2023 12:27-0500 Systolic blood pressure 110 mm[Hg] Ob Ultrasound Work Phone: [facility] 10-20-2023 09:01-0500 Body weight 80.29 kg Nst Wstr Work Phone: [facility] 10-20-2023 09:01-0500 Diastolic blood pressure 60 mm[Hg] Nst Wstr Work Phone: [facility] 10-20-2023 09:01-0500 Systolic blood pressure 100 mm[Hg] Nst Wstr Work Phone: [facility] 10-17-2023 09:05-0500 Diastolic blood pressure 60 mm[Hg] Ob Ultrasound Work Phone: [facility] 10-17-2023 09:05-0500 Systolic blood pressure 100 mm[Hg] Ob Ultrasound Work Phone: [facility] 10-13-2023 09:31-0500 Body weight 78.02 kg Justine Plotts MOLD MAKER APPRENTICE.CNM Work Phone: [facility] 10-13-2023 09:31-0500 Diastolic blood pressure 60 mm[Hg] Justine Plotts MOLD MAKER APPRENTICE.CNM Work Phone: [facility] 10-13-2023 09:31-0500 Systolic blood pressure 106 mm[Hg] Justine Plotts MOLD MAKER APPRENTICE.CNM Work Phone: [facility] 08-16-2023 08:34-0500 Body temperature 98.71 [degF] Татьяна Moser MOLD MAKER APPRENTICE.WELDING MANAGER Work Phone: [facility] 08-16-2023 08:34-0500 Body weight 73.48 kg Татьяна Moser MOLD MAKER APPRENTICE.WELDING MANAGER Work Phone: [facility] 08-16-2023 08:34-0500 Diastolic blood pressure 60 mm[Hg] Татьяна Moser MOLD MAKER APPRENTICE.WELDING MANAGER Work Phone: [facility] 08-16-2023 08:34-0500 Heart rate 105 /min Татьяна Moser MOLD MAKER APPRENTICE.WELDING MANAGER Work Phone: [facility] 08-16-2023 08:34-0500 Respiratory rate 16 /min Татьяна Moser MOLD MAKER APPRENTICE.WELDING MANAGER Work Phone: [facility] 08-16-2023 08:34-0500 SaO2% (BldA) [Mass fraction] 97 % Татьяна Moser MOLD MAKER APPRENTICE.WELDING MANAGER Work Phone: [facility] 08-16-2023 08:34-0500 Systolic blood pressure 98 mm[Hg] Татьяна Moser MOLD MAKER APPRENTICE.WELDING MANAGER Work Phone: [facility] 07-28-2023 08:02-0500 Body weight 71.67 kg Justine Goldman MOLD MAKER APPRENTICE.CNM Work Phone: [facility] 07-28-2023 08:02-0500 Diastolic blood pressure 52 mm[Hg] Justine Plotts MOLD MAKER APPRENTICE.CNM Work Phone: [facility] 07-28-2023 08:02-0500 Systolic blood pressure 90 mm[Hg] Justine Plotts MOLD MAKER APPRENTICE.CNM Work Phone: [facility] 05-14-2023 14:16-0400 Body weight 68.04 kg Justine Goldman MOLD MAKER APPRENTICE.CNM Work Phone: [facility] 05-14-2023 14:16-0400 Diastolic blood pressure 60 mm[Hg] Justine Plotts MOLD MAKER APPRENTICE.CNM Work Phone: [facility] 05-14-2023 14:16-0400 Systolic blood pressure 98 mm[Hg] Justine Plotmichelle MOLD MAKER APPRENTICE.CNM Work Phone: [facility] 05-11-2023 12:33-0400 Body temperature 97.7 [degF] Suha Avelar MOLD MAKER APPRENTICE.WELDING MANAGER Work Phone: [facility] 05-11-2023 12:33-0400 Body weight 67.68 kg Suha Avelar MOLD MAKER APPRENTICE.WELDING MANAGER Work Phone: [facility] 05-11-2023 12:33-0400 Diastolic blood pressure 64 mm[Hg] Suha Avelar MOLD MAKER APPRENTICE.WELDING MANAGER Work Phone: [facility] 05-11-2023 12:33-0400 Heart rate 86 /min Suha Avelar MOLD MAKER APPRENTICE.WELDING MANAGER Work Phone: [facility] 05-11-2023 12:33-0400 Respiratory rate 18 /min Suha Avelar MOLD MAKER APPRENTICE.WELDING MANAGER Work Phone: [facility] 05-11-2023 12:33-0400 SaO2% (BldA) [Mass fraction] 100 % Suha Valentino MOLD MAKER APPRENTICE.WELDING MANAGER Work Phone: [facility] 05-11-2023 12:33-0400 Systolic blood pressure 98 mm[Hg] Suha Avelar MOLD MAKER APPRENTICE.WELDING MANAGER Work Phone: [facility] 04-21-2023 15:30-0400 Body height 160 cm Justine Goldman MOLD MAKER APPRENTICE.CNM Work Phone: [facility] 04-21-2023 15:30-0400 Body weight 65.77 kg Justine Goldman MOLD MAKER APPRENTICE.CNM Work Phone: [facility] 04-21-2023 15:30-0400 Diastolic blood pressure 68 mm[Hg] Justine Goldman MOLD MAKER APPRENTICE.CNM Work Phone: [facility] 04-21-2023 15:30-0400 Systolic blood pressure 110 mm[Hg] Justine Goldman MOLD MAKER APPRENTICE.CNM Work Phone: [facility] 04-05-2022 11:02-0400 Body temperature 98.01 [degF] Vasyl Ann MD Work Phone: [facility] 04-05-2022 11:02-0400 Body weight 66.41 kg Vasyl Ann MD Work Phone: [facility] 04-05-2022 11:02-0400 Diastolic blood pressure 62 mm[Hg] Vasyl Ann MD Work Phone: [facility] 04-05-2022 11:02-0400 Heart rate 107 /min Vasyl Ann MD Work Phone: [facility] 04-05-2022 11:02-0400 Respiratory rate 20 /min Vasyl Ann MD Work Phone: [facility] 04-05-2022 11:02-0400 SaO2% (BldA) [Mass fraction] 99 % Vasyl Ann MD Work Phone: [facility] 04-05-2022 11:02-0400 Systolic blood pressure 98 mm[Hg] Vasyl Ann MD Work Phone: [facility] 08-24-2020 10:33-0500 BMI (Body Mass Index) 24.8 kg/m2 [facility] 08-24-2020 10:33-0500 Body Temperature 99 [degF] [facility] 08-24-2020 10:33-0500 Body weight 63.5 kg [facility] 08-24-2020 10:33-0500 BP Diastolic 65 mm[Hg] [facility] 08-24-2020 10:33-0500 BP Systolic 109 mm[Hg] [facility] 08-24-2020 10:33-0500 Height 160 cm [facility] 08-24-2020 10:33-0500 Pulse (Heart Rate) 86 /min [facility] 08-24-2020 10:33-0500 Pulse Oximetry 98 % [facility] 08-24-2020 10:33-0500 Respiratory Rate 16 /min [facility] 06-14-2020 11:30-0400 Body surface area Derived from formula [facility]) Encounters Encounter Date Encounter Type Care Provider Facility Start: 10-27-2023 End: 10-27-2023 ambulatory JUSTINE GOLDMAN Facility:[facility] Start: 10-27-2023 End: 10-27-2023 Patient encounter procedure Justine Goldman APRN.DANIEL Work Phone: OB/Gynecology Procedures Date Procedure Procedure Detail Performing Clinician Start: 10-27-2023 URINE OB DIP B/O Yisel Goldman MOLD MAKER APPRENTICE.CNM Work Phone: Start: 10-24-2023 biophysical profile non-stress testing Justine Goldman APRN.CNM Work Phone: Start: 10-20-2023 URINE OB DIP B/O Kevin Morin MOLD MAKER APPRENTICE.CNM Work Phone: Start: 10-17-2023 biophysical profile non-stress testing Justine Goldman MOLD MAKER APPRENTICE.CNM Work Phone: Start: 10-13-2023 URINE OB DIP B/O Yisel Goldman MOLD MAKER APPRENTICE.CNM Work Phone: Start: 09-24-2023 H/O: section History of delivery, currently Justine Goldman APRN.CNM Work Phone: Start: 07-28-2023 URINE OB DIP B/O Yisel Goldman MOLD MAKER APPRENTICE.CNM Work Phone: Start: 04-05-2022 STREP A MOLECULAR (POC) Vasyl Ann MD Work Phone: Start: 08-24-2020 COVID-19, MOLECULAR Devin estefany Abramsee Evelyn Work Phone: Start: 12-25-2018 Adult depression screening assessment Rosetta Perez MOLD MAKER APPRENTICE.WELDING MANAGER Work Phone: H/O: section History of delivery affecting Justine Goldman MOLD MAKER APPRENTICE.CNM Work Phone: H/O: section History of delivery affecting Justine Goldman MOLD MAKER APPRENTICE.CNM Work Phone: H/O: section History of delivery, currently Justine Goldman MOLD MAKER APPRENTICE.CNM Work Phone: H/O: section History of delivery, currently Justine Goldman MOLD MAKER APPRENTICE.CNM Work Phone: H/O: section History of delivery, currently Justine Goldman MOLD MAKER APPRENTICE.CNM Work Phone: Plan of Treatment Date Care Activity Detail Author Start: 10-17-2033 Urine microalbumin profile DTaP,Tdap,Td Vaccine (5 - Td or Tdap) [facility] Start: 10-17-2031 Urine microalbumin profile DTaP,Tdap,Td Vaccine (4 - Td or Tdap) [facility] Start: 09-22-2029 Urine microalbumin profile DTAP,TDAP,TD (2 - Td or Tdap) [facility] Start: 04-09-2026 PAP TESTING PAP TESTING [facility] Start: 04-09-2026 Screening for malign ant neoplasm of cervix Pap Testing [facility] Start: 10-13-2023 End: 01-12-2024 BILE ACIDS, TOTAL [facility] Work Phone: Immunizations Immunization Date Immunization Notes Care Provider Christin pritchard 10-17-2023 tetanus toxoid, redu oksana diphtheria toxoid, and acellular pertussis vaccine, adsorbed Ob Ultrasound Work Phone: [facility] 06-04-2023 influenza, injectabl e, quadrivalent, contains preservative Justine Goldman MOLD MAKER APPRENTICE.CNM Work Phone: [facility] Payers Date Payer Category Payer Medicaid [id number] 2023 Unknown [id number] 2023 Unknown RHETT LANGE ACCE SS PPO [id number] 2023-Present [phone] [address] [place] [id number] PPO [id number] 2023 Unknown [id number] 2021 Private Health Insurance [employer] OAP [id number] 2021-Present [phone] [address] [place] [address] Open Access [id number] 2019 Private Health Insurance [id number] 2019 Private Health Insurance [employer] A ETNA CHOICE POS II [id number] 2019-Present [phone] [address] [place] [address] POS [id number] 2018 Unknown RHETT LANGE ACCE SS PPO [id number] 2018-Present [phone] [address] [place] [address] PPO [id number] 1994 Unknown [id number] Social History Date Type Detail Facility Start: 08-24-2020 Tobacco smoking stat us [facility] Unknown if ever smoked [facility] Start: 1995 Sex Assigned At Not on file [facility] Exposure to SARS-CoV -2 (event) Yes [facility] Start: 01-03-2014 End: 04-21-2023 Tobacco smoking status NHIS Never smoked tobacco [facility] Start: 03-24-2020 End: 10-20-2023 Alcohol intake Current non-drinker of alcohol (finding) [facility] Start: 03-26-2022 End: 04-05-2022 Exposure to SARS-CoV-2 (event) Not sure [facility] Start: 01-03-2014 End: 04-21-2023 Tobacco use and exposure Smokeless tobacco non-user [facility] Work Phone: Start: 04-24-2022 End: 04-21-2023 History of Social function [facility] Start: 04-24-2022 End: 04-21-2023 Tobacco use panel [facility] Adult Depression Screening Assessment 0 [facility] Start: 03-04-2023 [facility] Goals Date Patient Goal Desired Activity /State Personal health goal Clinical Notes 03-24-2022 to 10-27-2023 Justine Goldman APRN.CNM - 10/27/2023 9:03 AM ESTPrenatal Quick Notes - Justine Goldman APRN.CNM 10/27/2023 8:37 AM ESTPatient Татьяна Sidhu APRN.CNM - 10/20/2023 9:35 AM EST Note Date & Type Note Facility 10-27-2023 Note HNO ID: [id number] Author: JUSTINE GOLDMAN APRN.CNM Service: ? Author Type: Presser [employer] Ginning Type: Progress Notes Filed: 10/27/2023 09:04 Note Text: NST SUMMARY PROVIDER ASSESSMENT AND INTERPRETATION Pratima Moreno is a 28 year old female, , who is at 35w6d with an CHANTELLE of 11/25/2023, by Ultrasound dating method. Indications for NST: Other: Cholestasis Baseline: 140 Variability: Moderate Accelerations: Present 15 X 15 Decelerations: None Contractions: TOCO: None Interpretation: Category I and Reactive SIGNATURE: Justine Goldman APRN.CNM [facility] 10-27-2023 History of Presen t illness Narrative NST SUMMARY PROVIDER ASSESSMENT AND INTERPRETATION Pratima Moreno is a 28 year old female, , who is at 35w6d with an CHANTELLE of 11/25/2023, by Ultrasound dating method. Indications for NST: Other: Cholestasis Baseline: 140 Variability: Moderate Accelerations: Present 15 X 15 Decelerations: None Contractions: TOCO: None Interpretation: Category I and Reactive SIGNATURE: Justine Goldman APRN.CNM documented in this encounter [facility] 10-27-2023 Miscellaneous Notes Formattin g of this note might be different from the original. Pratima Moreno is a 28 year old female who presents at 35w6d for a routine visit and NST. NST reactive. Good movement. Denies headache, visual changes, chest pain, shortness of breath, vaginal bleeding, leakage of fluid, or dysuria. Palms and feet continue to itch- increased at night. Taking Ursodiol daily. Has not taken Vistaril because she is afraid it will make her too tired. Size equal to dates. 28 lbs TWG. ASSESSMENT/PLAN: 1. 35 weeks gestation of - ICD9: V22.2, ICD10: Z3A.35 (primary diagnosis) 2. Cholestasis during in third trimester - ICD9: 646.73, 576.8, ICD10: O26.613, K83.1 3. History of pre-eclampsia in prior , currently - ICD9: V23.49, ICD10: O09.299 4. History of delivery, currently - ICD9: 654.20, ICD10: O34.219 5. Supervision of other high risk pregnancies, third trimester - ICD9: V23.89, ICD10: O09.893 - URINE OB DIP B/O - ROUTINE, GROUP B STREP PCR - NST reactive - Encouraged use of Vistaril at night for relief from itching - RTO - this week for BPP Justine Goldman APRN.CNM documented in this encounter [facility] 10-27-2023 Michelle Jenkins LPN - 10/27/2023 7:56 AM EST SEQUENTIAL SCREENINGS The [facility] offers sequential screenings for women who are interested in screenings for chromosomal abnormalities and certain defects during a . The sequential screen combines ultrasound and blood tests to determine the risk of chromosomal abnormalities, including Down's Syndrome (Trisomy 21) and Trisomy 18, as well as open neural tube defects including spina bifida. Ultrasound examination is performed between 11 weeks and 13 weeks gestational age. Blood tests are drawn after the ultrasound and again later in the between 15 and 21 weeks gestational age. Please let your physician know if you are interested in this testing. It will require an appointment with our telecommunications switch technician. This is not an ultrasound performed by a physician in our office during a routine visit. SIGNS AND SYMPTOMS OF LABOR 1. Contractions every 10 minutes or more often 2. Clear, pink, or brownish fluid (water) leaking from vagina 3. Feeling that baby is pushing down, pressure 4. Low, dull backache 5. Cramps that feel like a period 6. Cramps with or without diarrhea If you notice any of the above symptoms, contact our office at [phone] and ask to speak with a nurse. After hours, you can call doctors registry at [phone] OR call [facility] at [phone] and ask to have the doctor telephone sales agent paged. If you consider this an emergency, dial or go to your nearest emergency department. NEED HELP? Are you dealing with a violent or abusive relationship? Are you a victim of rape or sexual assult? Call [facility] ([facility] 24 hour Crisis Hotline: 827.100.9041 or 647-402-7184. MANUAL Your Guide to a Healthy manual is now on-line. Visit [email or web address] to download your free copy documented in this encounter [facility] 10-21-2023 Miscellaneous Notes Formattin g of this note might be different from the original. I can send in treatment for her and suppression for duration of . Ok since she is getting C/S but still can help decrease transmission. Татьяна Morin APRN.CNM Pt called and stated that she and her had intercourse this am and he has HSV and did not realize he was starting with an outbreak, he only noted one lesion. Pt is scheduled for a c/s on 11/19/23 she is to be moved to the end of Oct. Pt wanting to know if she needs to be treated. Pt does not have HSV. Please advise further pt uses pharmacy listed in chart. Debbie Shepherd LPN documented in this encounter [facility] 10-20-2023 Note HNO ID: [id number] Author: ТАТЬЯНА MORIN APRN.CNM Service: ? Author Type: Presser Cotton Ginning Type: Progress Notes Filed: 10/20/2023 10:21 Note Text: LYSSA-NST SUMMARY PROVIDER ASSESSMENT AND INTERPRETATION Pratima Moreno is a 28 year old female, , who is at 34w6d with an CHANTELLE of 11/25/2023, by Ultrasound dating method. Indications for NST: Other: Cholestasis Baseline: 140 Variability: Moderate Accelerations: Present 15 X 15 Decelerations: None Contractions: TOCO: Irregular Interpretation: Reactive SIGNATURE: Татьяна Morin APRN.CNM [facility] 10-20-2023 Miscellaneous Notes Formattin g of this note might be different from the original. LYSSA-NST only but had concerns and symptoms. S: Pratima Moreno is a 28 year old female who presents at 34w6d with CHANTELLE:11/25/2023, by Ultrasound for a routine visit. Denies headache, visual changes, chest pain, shortness of breath, vaginal bleeding, leakage of fluid, or dysuria. Feeling well, no complaints. Increased itching and discomfort, no resolution with ursodiol, did not start vistaril. Taking Pepcid once a day. O: See flow sheet Gen: No apparent distress Abd: Gravid, nontender NST reactive ASSESSMENT/PLAN: 1. Cholestasis during in third trimester 2. 34 weeks gestation of 3. History of pre-eclampsia in prior , currently P: 1) PTL precautions reviewed and when to call 2) RTO for BPP and routine visit this week. Continue twice weekly testing. 3) Continue Ursodiol 300 mg PO TID 4) Did not start vistaril, start 25 mg PO PRN TID. Reviewed skin care and symptom management. 5) Continue ASA 6) Repeat cholestasias labs today, CMP and bile acids, weekly. 7) Reviewed repeat C/S at 37 weeks-38 weeks if bile acids remain <40. 8) Reviewed twice daily kick counts and when to call. Reassurance and emotional support offered. Татьяна Morin APRN.CNM documented in this encounter [facility] 10-20-2023 History of Presen t illness Narrative LYSSA-NST SUMMARY PROVIDER ASSESSMENT AND INTERPRETATION Pratima Moreno is a 28 year old female, , who is at 34w6d with an CHANTELLE of 11/25/2023, by Ultrasound dating method. Indications for NST: Other: Cholestasis Baseline: 140 Variability: Moderate Accelerations: Present 15 X 15 Decelerations: None Contractions: TOCO: Irregular Interpretation: Reactive SIGNATURE: Татьяна Morin APRN.CNM documented in this encounter [facility] 10-20-2023 Maxwell Givens Cma - 10/20/2023 9:01 AM EST SEQUENTIAL SCREENINGS The [facility] offers sequential screenings for women who are interested in screenings for chromosomal abnormalities and certain defects during a . The sequential screen combines ultrasound and blood tests to determine the risk of chromosomal abnormalities, including Down's Syndrome (Trisomy 21) and Trisomy 18, as well as open neural tube defects including spina bifida. Ultrasound examination is performed between 11 weeks and 13 weeks gestational age. Blood tests are drawn after the ultrasound and again later in the between 15 and 21 weeks gestational age. Please let your physician know if you are interested in this testing. It will require an appointment with our telecommunications switch technician. This is not an ultrasound performed by a physician in our office during a routine visit. SIGNS AND SYMPTOMS OF LABOR 1. Contractions every 10 minutes or more often 2. Clear, pink, or brownish fluid (water) leaking from vagina 3. Feeling that baby is pushing down, pressure 4. Low, dull backache 5. Cramps that feel like a period 6. Cramps with or without diarrhea If you notice any of the above symptoms, contact our office at [phone] and ask to speak with a nurse. After hours, you can call doctors registry at [phone] OR call [facility] at [phone] and ask to have the doctor telephone sales agent paged. If you consider this an emergency, dial 7-8-3 or go to your nearest emergency department. NEED HELP? Are you dealing with a violent or abusive relationship? Are you a victim of rape or sexual assult? Call [facility] ([facility] 24 hour Crisis Hotline: 301.348.9729 or 750-521-1380. MANUAL Your Guide to a Healthy manual is now on-line. Visit [email or web address] to download your free copy documented in this encounter [facility] 10-17-2023 Note HNO ID: [id number] Author: ?, ?, ? Service: ? Author Type: ? Type: Progress Notes Filed: 10/17/2023 10:25 Note Text: Patient identified by name and date of . Pratima Easton Moreno presents today for a vaccination of Tdap. Patient denies an allergy to latex: yes Patient denies a severe (life-threatening) allergy to a previous dose of Tdap, DTP, DTaP, DT or Td vaccine. Yes Patient denies history of epilepsy or neurological problems: Yes Patient is afebrile and denies being moderately or severely ill: Yes Patient denies history of Guillain-Atl[place] Syndrome (a severe paralytic illness): Yes Tdap Adacel injection was given without incident. See immunizations for details of immunizations administered today. VIS sheet provided: Yes Provider Susi was present in office at time of injection. Qing Otot Ma [facility] 10-17-2023 Miscellaneous Notes Formattin g of this note might be different from the original. S: Pratima Moreno is a 28 year old female who presents as an add on visit to discuss lab results. She is here today for US. Still having itching on hands and bottoms of feet. Has not started medications that were ordered. Encouraged patient to start today. Using Benadryl cream with minimal relief. Discussed lab results with patient and plan of care to continue weekly labs until delivery. Denies headache, visual changes, chest pain, shortness of breath, vaginal bleeding, leakage of fluid, or dysuria. Feeling well, no complaints. O: See flow sheet Gen: No apparent distress Abd: Gravid, nontender ASSESSMENT/PLAN: 1. Need for vaccination - ICD9: V05.9, ICD10: Z23 (primary diagnosis) 2. Pruritus - ICD9: 698.9, ICD10: L29.9 3. Cholestasis during in third trimester - ICD9: 646.73, 576.8, ICD10: O26.613, K83.1 4. History of delivery, currently - ICD9: 654.20, ICD10: O34.21 5. History of pre-eclampsia in prior , currently - ICD9: V23.49, ICD10: O09.299 - Bile Salts - 2 this week - Discussed cholestasis diagnose and importance of starting medications - Will continue treatment due to patient continuing to be symptomatic - Ursodiol 300 mg PO TID - Vistaril 25 mg PO PRN - TDAP today - Continue weekly BPP/ NST until delivery - Concerned will need to have C/S earlier than currently scheduled- will evaluate based on labs - Agrees with plan of care P: 1) PTL precautions reviewed and when to call 2) RTO 1 week Justine Goldman APRN.CNM documented in this encounter [facility] 10-17-2023 History of Presen t illness Narrative Patient identified by name and date of . Pratima Moreno presents today for a vaccination of Tdap. Patient denies an allergy to latex: yes Patient denies a severe (life-threatening) allergy to a previous dose of Tdap, DTP, DTaP, DT or Td vaccine. Yes Patient denies history of epilepsy or neurological problems: Yes Patient is afebrile and denies being moderately or severely ill: Yes Patient denies history of Guillain-[place] Syndrome (a severe paralytic illness): Yes Tdap Adacel injection was given without incident. See immunizations for details of immunizations administered today. VIS sheet provided: Yes Provider Susi was present in office at time of injection. Qing Otto Ma documented in this encounter [facility] 10-15-2023 Note HNO ID: [id number] Author: JUSTINE GOLDMAN APRN.CNM Service: ? Author Type: Presser Cotton Ginning Type: Progress Notes Filed: 10/15/2023 08:33 Note Text: Patient called in telephone sales agent line with complaints of increased itching of hands and now feet. Bile acids still pending. Weekly blood draws. Will start treatment with Ursodiol 300 mg PO TID and Vistaril 25 mg PO PRN for itching. Biweekly modified BPP ordered. Please assist with scheduling. Justine Goldman APRN.CNM [facility] 10-15-2023 History of Presen t illness Narrative Patient called in telephone sales agent line with complaints of increased itching of hands and now feet. Bile acids still pending. Weekly blood draws. Will start treatment with Ursodiol 300 mg PO TID and Vistaril 25 mg PO PRN for itching. Biweekly modified BPP ordered. Please assist with scheduling. Justine Goldman APRN.CNM documented in this encounter [facility] 10-13-2023 Miscellaneous Notes Formattin g of this note might be different from the original. S: Pratima Moreno is a 28 year old female who presents at 11/25/2023, by Ultrasound for a routine visit. Positive movement. Itching on palms of hands and upper abdomen that started last night. No rash noted. No changes to soaps or detergents. Denies any pruritis on feet. Denies headache, visual changes, chest pain, shortness of breath, vaginal bleeding, leakage of fluid, or dysuria. O: See flow sheet Gen: No apparent distress Abd: Gravid, nontender S=D ASSESSMENT/PLAN: 1. Encounter for supervision of other normal in third trimester - ICD9: V22.1, ICD10: Z34.83 (primary diagnosis) 2. 33 weeks gestation of - ICD9: V22.2, ICD10: Z3A.33 3. History of pre-eclampsia in prior , currently - ICD9: V23.49, ICD10: O09.299 4. History of delivery, currently - ICD9: 654.20, ICD10: O34.219 5. Pruritus - ICD9: 698.9, ICD10: L29.9 - [place] soap- benadryl PO or cream as needed _ Suspect contract dermatitis - Offered Vistaril PO - declined - CBC + DIFF - COMP METABOLIC PANEL - BILE ACIDS, TOTAL - Will notify patient of results and any changes to treatment plan - RTO 2 weeks or sooner if needed Justine Goldman APRN.CNM documented in this encounter [facility] 10-13-2023 Talia Jimenez Ma - 10/13/2023 9:32 AM EST SEQUENTIAL SCREENINGS The [facility] offers sequential screenings for women who are interested in screenings for chromosomal abnormalities and certain defects during a . The sequential screen combines ultrasound and blood tests to determine the risk of chromosomal abnormalities, including Down's Syndrome (Trisomy 21) and Trisomy 18, as well as open neural tube defects including spina bifida. Ultrasound examination is performed between 11 weeks and 13 weeks gestational age. Blood tests are drawn after the ultrasound and again later in the between 15 and 21 weeks gestational age. Please let your physician know if you are interested in this testing. It will require an appointment with our telecommunications switch technician. This is not an ultrasound performed by a physician in our office during a routine visit. SIGNS AND SYMPTOMS OF LABOR 1. Contractions every 10 minutes or more often 2. Clear, pink, or brownish fluid (water) leaking from vagina 3. Feeling that baby is pushing down, pressure 4. Low, dull backache 5. Cramps that feel like a period 6. Cramps with or without diarrhea If you notice any of the above symptoms, contact our office at [phone] and ask to speak with a nurse. After hours, you can call doctors registry at [phone] OR call [facility] at [phone] and ask to have the doctor telephone sales agent paged. If you consider this an emergency, dial 9-1-7 or go to your nearest emergency department. NEED HELP? Are you dealing with a violent or abusive relationship? Are you a victim of rape or sexual assult? Call [facility] ([place]) 24 hour Crisis Hotline: 764.986.7129 or 514-188-3436. MANUAL Your Guide to a Healthy manual is now on-line. Visit [email or web address] to download your free copy documented in this encounter [facility] documented as of this encounter (statuses as of 10/13/2023) [facility]01-16[facility]20[facility] History of Past illness Narrative* Problem Noted Date Diagnosed Date Resolved Date Pelvic pain during 09/23/2023 09/24/2023 Other psoriasis 10/14/2006 09/24/2023 Seborrheic dermatitis, unspecified 10/14/2006 09/24/2023 Pyoderma, unspecified 10/14/20062023 EXCORIATION///SUPERFICIAL INJURY NEC 10/14/2006 09/24/2023 SKIN LESION 03/05/2006 09/24/2023 documented as of this encounter (statuses as of 10/15/2023) [facility] History of Past illness Narrative* Problem Noted Date Diagnosed Date Resolved Date Pelvic pain during 09/23/2023 09/24/2023 Other psoriasis 10/14/2006 09/24/2023 Seborrheic dermatitis, unspecified 10/14/2006 09/24/2023 Pyoderma, unspecified 10/14/20062023 EXCORIATION///SUPERFICIAL INJURY NEC 10/14/2006 09/24/2023 SKIN LESION 03/05/2006 09/24/2023 documented as of this encounter (statuses as of 10/17/2023) [facility] History of Past illness Narrative* Problem Noted Date Diagnosed Date Resolved Date Pelvic pain during 09/23/2023 09/24/2023 Other psoriasis 10/14/2006 09/24/2023 Seborrheic dermatitis, unspecified 10/14/2006 09/24/2023 Pyoderma, unspecified 10/14/20062023 EXCORIATION///SUPERFICIAL INJURY NEC 10/14/2006 09/24/2023 SKIN LESION 03/05/2006 09/24/2023 documented as of this encounter (statuses as of 10/20/2023) [facility] History of Past illness Narrative* Problem Noted Date Diagnosed Date Resolved Date Pelvic pain during 09/23/2023 09/24/2023 Other psoriasis 10/14/2006 09/24/2023 Seborrheic dermatitis, unspecified 10/14/2006 09/24/2023 Pyoderma, unspecified 10/14/20062023 EXCORIATION///SUPERFICIAL INJURY NEC 10/14/2006 09/24/2023 SKIN LESION 03/05/2006 09/24/2023 documented as of this encounter (statuses as of 10/21/2023) [facility] History of Past illness Narrative* Problem Noted Date Diagnosed Date Resolved Date Pelvic pain during 09/23/2023 09/24/2023 Other psoriasis 10/14/2006 09/24/2023 Seborrheic dermatitis, unspecified 10/14/2006 09/24/2023 Pyoderma, unspecified 10/14/20062023 EXCORIATION///SUPERFICIAL INJURY NEC 10/14/2006 09/24/2023 SKIN LESION 03/05/2006 09/24/2023 documented as of this encounter (statuses as of 10/24/2023) [facility] History of Past illness Narrative* Problem Noted Date Diagnosed Date Resolved Date Pelvic pain during 09/23/2023 09/24/2023 Other psoriasis 10/14/2006 09/24/2023 Seborrheic dermatitis, unspecified 10/14/2006 09/24/2023 Pyoderma, unspecified 10/14/20062023 EXCORIATION///SUPERFICIAL INJURY NEC 10/14/2006 09/24/2023 SKIN LESION 03/05/2006 09/24/2023 documented as of this encounter (statuses as of 10/27/2023) [facility] NoteHNO ID: [id number] Author: MARÍA DUNHAM, PT Service: ? Author Type: Physical Therapist Type: Progress Notes Filed: 09/23/2023 09:28 Note Text: Episode Visit Count: 1 Therapist That Will Accept/Oversee The Plan Of Care: María Ruiz Start of Care Date: 09/23/23 Onset Date: 05/13/23 Plan of Care Certification Date: 09/23/23 Next Certification Due Date: 11/22/23 Patient Identified by Name and Date of : Yes REHABILITATION AND SPORTS THERAPY PHYSICAL THERAPY EVALUATION PLAN OF CARE: Assessment: Pratima Moreno presents with chief complaint of pelvic pain during that interferes with bladder function, physical activities . BLE strength tested in sitting due to increased pain with supine/hooklying position; BLE strength WNL. Pelvic floor muscle assessment deferred due to patient currently in third trimester of . PROMIS? (Patient-Reported Outcomes Measurement Information System) scores were reviewed and self efficacy domain identified as a rehabilitation concern. Prognosis for therapy is Good due to: current objective clinical presentation . She will benefit from skilled therapy services to meet the goals established for this plan of care as noted below. Goals for Episode of Care: created on 09/23/23 through 11/22/23 Patient demonstrates independence and compliance with home exercise program. Patient reports nocturia 0-1 times to demonstrate normalized bladder function. Patient reports at least 85% less bladder urgency to avoid incontinent episodes. Patient reports at least 85% improvement in pelvic pain with ADLs compared to IE. Patient Goals: improve pelvic pain and bladder function Planned Interventions, Frequency, and Duration: Current Frequency: 1x/week Duration: 4 weeks (reassess at 4 weeks and progress as indicated) Total Number of Visits Planned: 4 Planned Treatment Interventions: Therapeutic exercise (22439), Manual therapy (10840), Self-half-way management (61340), Patient/Family/Caregiver Education PLAN FOR NEXT VISIT: progress seated exercises as tolerated Patient demonstrates good understanding of plan of care and treatment. The above goals and plan of care were discussed and agreed upon by patient/family. SUBJECTIVE: Pt is 31 weeks . Pt reports pelvic pain began around week 12. Pt reports pain is all the time, worsens with laying down. 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 Intake Information: Prescription present Previous Treatment: None Falls Interview: No positive findings with falls interview PAST MEDICAL HISTORY Diagnosis Date UTI (lower urinary tract infection) Yeast infection PAST SURGICAL HISTORY Procedure Laterality Date DELIVERY ONLY 11/25/2021 TONSILLECTOMY PRIMARY/SECONDARY Tonsillectomy Aquatic Screen: No Pain: Pain Pain Level: 0 Post Treatment Pain Post Treatment Pain Level: 0 PROMIS Scales Higher is Better 09/23/2023 Phys Func - Score 52 (within normal limits) Phys Func - Percentile 58% Self-Eff Symptom - Score 37 (Low) Self-Eff Symptom - Percentile 10% T-scores: mean of general population = 50. 5 points is clinically meaningfully difference Percentiles provide an indication of how the patient's score ranks in relation to the general population. Higher percentile rankings indicate better function/quality of life. 50th percentile is the average of the general population and indicates half of respondents had a worse score. OBJECTIVE MEASURES WITH LEVEL OF FUNCTION: Pelvic Floor Pregnancies: 6 Births: 1 : 1 Pain with penetration: No Urinary/Bowel History : Urinary History, Bowel History Difficulty starting stream: No Incomplete emptying: No Stress Incontinence: No Urgency: Sometimes Frequency of Urgency Episodes: maybe a couple times a week Frequency of Leaks Secondary to Urge: 0 Nocturia (times per night): (5-6) Daytime Frequency (hours): 1 Fluid Intake: Water, Coffee, Other beverage (8 oz measurements) Water : 6-8 Coffee: 1 Other beverage : not even one a day, maybe a few a week (body armour) Difficulty evacuating / Excessive Straining: No Incomplete emptying: No Bowel Movement Frequency: 1x/day Fecal incontinence: No Pelvic Floor Muscle Assessment Consent for pelvic assessment/testing and treatment: (PF mm assessment deferred due to third trimester of .) LE AROM R LE AROM: WFL L LE AROM: WFL LE Strength R LE Strength: 5/5 (tested in sitting) L LE Strength: 5/5 (tested in sitting) Education: Education Learning Preferences: Demon[employer] (more content not included)...[facility]12-18-2023 Miscellaneous Notes* Telephone Encounter - Trinh Bhakta RN - 08/25/2023 1:38 PM EST Patient notified. Said she probably won't be able to leave urine until Friday. TRINH BHAKTA RN * Telephone Encounter - Pratima De Jesus APRN.CNP - 08/25/2023 12:29 PM EST Would recommend [employer] drinks to help restore electrolyte balance as potassium is a little low. Pratima De Jesus APRN.CNP * Telephone Encounter - Pratima De Jesus APRN.CNP - 08/25/2023 12:26 PM EST Please notify patient: Labs WNL so far. Protein creatinine ratio was not collected from urine. Order placed, can come to lab at anytime to have done. If normal, would recommend eye exam. If persistent headache develops or BP outside of parameters, to notify. (140/90+) Pratima De Jesus APRN.SIN [facility] NoteHNO ID: [id number] Author: Татьяна Moser APRN.CNP Service: ? Author Type: Nurse Practitioner Type: Progress Notes Filed: 08/16/2023 9:04 AM Note Text: This note was created using NoteWriter. Subjective Pratima Moreno is a 28 year old female. 28 year old female with PMH 25 week OB presents for sore throat. Acute onset 3 days ago +sore throat Denies accompanying URI sx Denies cough Denies fever or chills. Denies body aches. Denies SOB or dyspnea Denies abdominal pain. Denies N/V/D 25 weeks Denies ill contacts. The history is provided by the patient. No specialized language instructor was used. Sore Throat This is a new problem. The current episode started in the past 7 days. The problem has been unchanged. Neither side of throat is experiencing more pain than the other. There has been no fever. The fever has been present for 1 to 2 days. The pain is at a severity of 5/10. The pain is moderate. Pertinent negatives include no abdominal pain, congestion, coughing, diarrhea, drooling, ear discharge, ear pain, headaches, hoarse voice, plugged ear sensation, neck pain, shortness of breath, stridor, swollen glands, trouble swallowing or vomiting. She has had no exposure to strep or mono. She has tried nothing for the symptoms. The treatment provided no relief. PAST MEDICAL HISTORY Diagnosis Date UTI (lower urinary tract infection) Yeast infection PAST SURGICAL HISTORY Procedure Laterality Date DELIVERY ONLY 11/25/2021 TONSILLECTOMY PRIMARY/SECONDARY Tonsillectomy ALLERGIES Patient has no known allergies. MEDICATIONS PNV no.95/ferrous fum/folic ac ( ORAL) Take by mouth. BABY ASPIRIN ORAL Take 81 mg by mouth once daily. albuterol HFA (PROVENTIL HFA, VENTOLIN HFA) 90 mcg/actuation inhaler Inhale 2 Puffs as instructed every 4 hours as needed. ondansetron (ZOFRAN) 4 mg tablet Take 1 tablet by mouth every 8 hours as needed for nausea/vomiting. (Patient not taking: Reported on 07/28/2023) FAMILY HISTORY Problem Relation Age of Onset other (Kidney Issues [Other]) Paternal Grandmother Social History Tobacco Use Smoking status: Never Smokeless tobacco: Never Vaping Use Vaping Use: Never used Substance Use Topics Alcohol use: No Drug use: No Review of Systems Constitutional: Negative for activity change, chills, fatigue and fever. HENT: Positive for sore throat. Negative for congestion, drooling, ear discharge, ear pain, hoarse voice and trouble swallowing. Eyes: Negative for pain, discharge and redness. Respiratory: Negative for cough, shortness of breath and stridor. Cardiovascular: Negative for chest pain, palpitations and leg swelling. Gastrointestinal: Negative for abdominal pain, diarrhea and vomiting. Musculoskeletal: Negative for arthralgias, back pain and neck pain. Skin: Negative for color change, pallor, rash and wound. Allergic/Immunologic: Negative for environmental allergies, food allergies and immunocompromised state. Neurological: Negative for dizziness, facial asymmetry and headaches. Hematological: Negative for adenopathy. Does not bruise/bleed easily. Psychiatric/Behavioral: Negative for agitation and behavioral problems. Objective BP 98/60 Pulse 105 Temp 37.1 ?C (98.7 ?F) Resp 16 Wt 73.5 kg (162 lb) LMP 02/08/2023 (Exact Date) SpO2 97% BMI 28.70 kg/m? Physical Exam Vitals and nursing note reviewed. Constitutional: General: She is not in acute distress. Appearance: Normal appearance. She is normal weight. She is not ill-appearing, toxic-appearing or diaphoretic. HENT: Head: Normocephalic and atraumatic. Right Ear: Ear canal and external ear normal. Left Ear: Ear canal and external ear normal. Nose: Nose normal. No congestion or rhinorrhea. Mouth/Throat: Mouth: Mucous membranes are moist. Pharynx: Posterior oropharyngeal erythema (1 + enlarged bilateral. Uvula midline) present. No oropharyngeal exudate. Eyes: General: Right eye: No discharge. Left eye: No discharge. Extraocular Movements: Extraocular movements intact. Conjunctiva/sclera: Conjunctivae normal. Pupils: Pupils are equal, round, and reactive to light. Cardiovascular: Rate and Rhythm: Normal rate and regular rhythm. Pulses: Normal pulses. Heart sounds: Normal heart sounds. No murmur heard. No friction rub. Pulmonary: Effort: Pulmonary effort is normal. No respiratory distress. Breath sounds: Normal breath sounds. No stridor. No wheezing, rhonchi or rales. Chest: Chest wall: No tenderness. Abdominal: General: Abdomen is flat. There is no distension. Palpations: Abdomen is soft. There is no mass. Tenderness: There is no abdominal tenderness. There is no right CVA tenderness, left CVA tenderness, guarding or rebound. Hernia: No hernia is present. Musculoskeletal: General: No swelling, tenderness, deformity or signs of injury. Normal range of motion. Cervical back: Normal range of m (more content not included)...[facility]12-09-2023 History of Present illness Narrative* Татьяна Moser APRN.WELDING MANAGER - 08/16/2023 8:38 AM EST This note was created using Apparentriter. Subjective Pratima Moreno is a 28 year old female. 28 year old female with PMH 25 week OB presents for sore throat. Acute onset 3 days ago +sore throat Denies accompanying URI sx Denies cough Denies fever or chills. Denies body aches. Denies SOB or dyspnea Denies abdominal pain. Denies N/V/D 25 weeks Denies ill contacts. The history is provided by the patient. No specialized language instructor was used. Sore Throat This is a new problem. The current episode started in the past 7 days. The problem has been unchanged. Neither side of throat is experiencing more pain than the other. There has been no fever. The fever has been present for 1 to 2 days. The pain is at a severity of 5/10. The pain is moderate. Pertinent negatives include no abdominal pain, congestion, coughing, diarrhea, drooling, ear discharge, ear pain, headaches, hoarse voice, plugged ear sensation, neck pain, shortness of breath, stridor, swollen glands, trouble swallowing or vomiting. She has had no exposure to strep or mono. She has tried nothing for the symptoms. The treatment provided no relief. PAST MEDICAL HISTORY Diagnosis Date UTI (lower urinary tract infection) Yeast infection PAST SURGICAL HISTORY Procedure Laterality Date DELIVERY ONLY 11/25/2021 TONSILLECTOMY PRIMARY/SECONDARY <AGE 12 Tonsillectomy ALLERGIES Patient has no known allergies. MEDICATIONS PNV no.95/ferrous fum/folic ac ( ORAL) Take by mouth. BABY ASPIRIN ORAL Take 81 mg by mouth once daily. albuterol HFA (PROVENTIL HFA, VENTOLIN HFA) 90 mcg/actuation inhaler Inhale 2 Puffs as instructed every 4 hours as needed. ondansetron (ZOFRAN) 4 mg tablet Take 1 tablet by mouth every 8 hours as needed for nausea/vomiting. (Patient not taking: Reported on 07/28/2023) FAMILY HISTORY Problem Relation Age of Onset other (Kidney Issues [Other]) Paternal Grandmother Social History Tobacco Use Smoking status: Never Smokeless tobacco: Never Vaping Use Vaping Use: Never used Substance Use Topics Alcohol use: No Drug use: No Review of Systems Constitutional: Negative for activity change, chills, fatigue and fever. HENT: Positive for sore throat. Negative for congestion, drooling, ear discharge, ear pain, hoarse voice and trouble swallowing. Eyes: Negative for pain, discharge and redness. Respiratory: Negative for cough, shortness of breath and stridor. Cardiovascular: Negative for chest pain, palpitations and leg swelling. Gastrointestinal: Negative for abdominal pain, diarrhea and vomiting. Musculoskeletal: Negative for arthralgias, back pain and neck pain. Skin: Negative for color change, pallor, rash and wound. Allergic/Immunologic: Negative for environmental allergies, food allergies and immunocompromised state. Neurological: Negative for dizziness, facial asymmetry and headaches. Hematological: Negative for adenopathy. Does not bruise/bleed easily. Psychiatric/Behavioral: Negative for agitation and behavioral problems. Objective BP 98/60 Pulse 105 Temp 37.1 C (98.7 F) Resp 16 Wt 73.5 kg (162 lb) LMP 02/08/2023 (ExactDate) SpO2 97% BMI 28.70 kg/m Physical Exam Vitals and nursing note reviewed. Constitutional: General: She is not in acute distress. Appearance: Normal appearance. She is normal weight. She is not ill-appearing, toxic-appearing or diaphoretic. HENT: Head: Normocephalic and atraumatic. Right Ear: Ear canal and external ear normal. Left Ear: Ear canal and external ear normal. Nose: Nose normal. No congestion or rhinorrhea. Mouth/Throat: Mouth: Mucous membranes are moist. Pharynx: Posterior oropharyngeal erythema (1 + enlarged bilateral. Uvula midline) present. No oropharyngeal exudate. Eyes: General: Right eye: No discharge. Left eye: No discharge. Extraocular Movements: Extraocular movements intact. Conjunctiva/sclera: Conjunctivae normal. Pupils: Pupils are equal, round, and reactive to light. Cardiovascular: Rate and Rhythm: Normal rate and regular rhythm. Pulses: Normal pulses. Heart sounds: Normal heart sounds. No murmur heard. No friction rub. Pulmonary: Effort: Pulmonary effort is normal. No respiratory distress. Breath sounds: Normal breath sounds. No stridor. No wheezing, rhonchi or rales. Chest: Chest wall: No tenderness. Abdominal: General: Abdomen is flat. There is no distension. Palpations: Abdomen is soft. There is no mass. Tenderness: There is no abdominal tenderness. There is no right CVA tenderness, left CVA tenderness, guarding or rebound. Hernia: No hernia is present. Musculoskeletal: General: No swelling, tenderness, deformity or signs of injury. Normal range of motion. Cervical back: Normal range of motion and neck supple. No rigidity. Right lower leg: No edema. Left lower leg: No edema. Lymphadenopathy: Cervical: No cervical adenopathy. Skin: General: Skin is warm and dry. Coloration: Skin is not jaundiced or pale. Findings: No bruising, erythema, lesion or rash. Neurological: General: No focal deficit present. Mental Status: She is alert and oriented to person, place, and time. Cranial Nerves: No cranial nerve deficit. Sensory: No sensory deficit. Motor: No weakness. Coordination: Coordination normal. Gait: Gait normal. Psychiatric: Mood and Affect: Mood normal. Behavior: Behavior normal. Thought Content: Thought content normal. Judgment: Judgment normal. Assessment and Plan ASSESSMENT/PLAN: 1. Sore throat - ICD9: 462, ICD10: J02.9 - suspect viral - Group A strep molecular testing negative - Discussed supportive care treatment with fluids, rest and analgesia. - The patient may also use OTC medicines and medice hand out provided. . - Contagious dz precautions discussed- including considered contagious until on antibiotics for 24 hours - The patient should follow up in 3-5 days if symptoms persist or worsen - Call back if drooling, increased temperature, symptoms of dehydration and/or still sick in one week - STREP A MOLECULAR (POC) Татьяна Moser APRN.CNP documented in this encounterN[facility]11-20-[facility]23 Miscellaneous Notes* Quick Notes - Justine Goldman APRN.CNM - 07/28/2023 8:17 AM EST S: Pratima Moreno is a 28 year old female who presents at 22.6 weeks gestation for a routine visit.Positive movement. Increased pelvic pain. Pain with walking as well as when laying down to sleep. Pain keeping her awake. Discussed pelvic floor/ PT. Denies headache, visual changes, chest pain, shortness of breath, vaginal bleeding, leakage of fluid, or dysuria. O: See flow sheet Gen: No apparent distress Abd: Gravid, nontender ASSESSMENT/PLAN: 1. 22 weeks gestation of - ICD9: V22.2, ICD10: Z3A.22 (primary diagnosis) 2. Encounter for supervision of other normal in second trimester - ICD9: V22.1, ICD10: Z34.82 - URINE OB DIP B/O - SYPHILIS TOTAL W/REFLEX - GEST GLUC SCREEN, 1-HR, 50 GM, NON-FASTING - CBC + DIFF 3. Pelvic pain during - ICD9: 646.80, 625.9, ICD10: O26.899, R10.2 - Consult to PT placed P: 1) PTL precautions reviewed and when to call 2) RTO 4 weeks for DEWAYNE with GCT Justine Goldman APRN.CNM documented in this encounterNationwide [facility]11-20-2023 Instructions* Patient Instructions* Talia Mccormack Ma - 07/28/2023 8:00 AM EST SEQUENTIAL SCREENINGS [facility] offers sequential screenings for women who are interested in screenings for chromosomal abnormalities and certain defects during a . The sequential screen combinesultrasound and blood tests to determine the risk of chromosomal abnormalities, including Down's Syndrome (Trisomy 21) and Trisomy 18, as well as open neural tube defects including spina bifida. Ultrasound examination is performed between 11 weeks and 13 weeks gestational age. Blood tests are drawn after the ultrasound and again later in the between 15 and 21 weeks gestational age. Please let your physician know if you are interested in this testing. It will require an appointment withour telecommunications switch technician. This is not an ultrasound performed by a physician in our office during a routine visit. SIGNS AND SYMPTOMS OF LABOR 1. Contractions every 10 minutes or more often 2. Clear, pink, or brownish fluid (water) leaking from vagina 3. Feeling that baby is pushing down, pressure 4. Low, dull backache 5. Cramps that feel like a period 6. Cramps with or without diarrhea If you notice any of the above symptoms, contact our office at [phone] and ask to speak with anurse. After hours, you can call doctors registry at [phone] OR call [facility] at [phone] ask to have the doctor telephone sales agent paged. If you consider this an emergency, dial 7-5-4 or go to your nearest emergency department. NEED HELP? Are you dealing with a violent or abusive relationship? Are you a victim of rape or sexual assult? Call [facility] [place] ([place]) 24 hour Crisis Hotline: 868.287.5593 or 817-331-4123. MANUAL Your Guide to a Healthy manual is now on-line. Visit [email or web address] to download your free copy documented in this encounterNationwide Children[facility] Hospital09-06-2023 Miscellaneous Notes* Quick Notes - Justine Goldman APRN.DANIEL - 05/14/2023 2:41 PM EDT Pratima Moreno is a 27 year old female who presents as an add on visit today. She is at [id number] gestation. She does not feel movement to date but was easily able to find FHT via doppler until today. Became concerned. Tearful. Denies headache, visual changes, chest pain, shortness ofbreath, vaginal bleeding, leakage of fluid, or dysuria. Feeling well overall, no complaints. Size appropriate for dates. FHT 164 bpm via doppler. Reassurance given. PTL/ Bleeding precautions reviewed. RTC in 4 weeks for DEWAYNE or sooner if needed. Justine Goldman APRN.CNM documented in this encounterNationwide [facility]09-05-2023 Miscellaneous Notes* Telephone Encounter - Nelida Hampton - 05/13/2023 7:26 AM EDT Patient given results and verbalized understanding of instructions given. Nelida Hampton * Telephone Encounter - Suha Avelar APRN.CNP - 05/13/2023 7:19 AM EDT Patient's urine culture did not grow anything significant. If patient's symptoms persist patient should follow-up with OB. documented in this encounterNationwide [facility]09-04-2023 Miscellaneous Notes* Telephone Encounter - Татьяна Moser APRN.CNP - 05/12/2023 8:07 AM EDT Positive for ahider. RX Diflucan sent in. Mychart message sent. documented in this encounterNationwide Children'[facility]09-03-2023 NoteHNO ID: [id number] Author: Suha Avelar APRN.CNP Service: ? Author Type: Nurse Practitioner Type: Progress Notes Filed: 05/11/2023 12:50 PM Note Text: CC: Patient presents with: Urinary Problem: Low back pain, burning x 3 days And is 12 weeks . HPI Pratima Moreno is a 27 year old female who presents with complaint of possible UTI. These symptoms have been present for 3 days. Associated symptoms: burning, backpain, and abnormal vaginal discharge Denies: fever, chills, sweats, abdominal pain, and flank pain Treatments: nothing The ROS was otherwise negative. PMH, Medications, labs, allergies, and recent past visits with PCP were reviewed and updated as able. PHYSICAL EXAM: BP 98/64 Pulse 86 Temp 36.5 ?C (97.7 ?F) Resp 18 Wt 67.7 kg (149 lb 3.2 oz) LMP 02/08/2023 (Exact Date) SpO2 100% BMI 26.43 kg/m? General: Well appearing and alert CV: Regular rate and rhythm without obvious murmur Lungs: clear to auscultation bilaterally Back: straight and symmetric Abdomen: soft, nontender, nondistended PAST MEDICAL HISTORY Diagnosis Date UTI (lower urinary tract infection) Yeast infection PAST SURGICAL HISTORY Procedure Laterality Date DELIVERY ONLY 11/25/2021 TONSILLECTOMY PRIMARY/SECONDARY Tonsillectomy ALLERGIES Patient has no known allergies. MEDICATIONS PNV no.95/ferrous fum/folic ac ( ORAL) Take by mouth. BABY ASPIRIN ORAL Take 81 mg by mouth once daily. ondansetron (ZOFRAN) 4 mg tablet Take 1 tablet by mouth every 8 hours as needed for nausea/vomiting. albuterol HFA (PROVENTIL HFA, VENTOLIN HFA) 90 mcg/actuation inhaler Inhale 2 Puffs as instructed every 4 hours as needed. FAMILY HISTORY Problem Relation Age of Onset other (Kidney Issues [Other]) Paternal Grandmother Social History Tobacco Use Smoking status: Never Smokeless tobacco: Never Vaping Use Vaping Use: Never used Substance Use Topics Alcohol use: No Drug use: No ASSESSMENT/PLAN: 1. Burning with urination - ICD9: 788.1, ICD10: R30.0 - UA DIP, URINE (POC) - URINE CULTURE - BACTERIAL VAGINOSIS NAAT - HAIDER/TRICHOMONAS NAAT No treatment at this time. If anything comes back positive please treat accordingly. Potential red flag symptoms discussed with the patient. Reviewed appropriate action plan to take if red flag symptoms occur. Patient agreeable to treatment plan. Patient will also stay in contact with her OB physician due to multiple risk factors from history of pregnancies. Suha Avelar APRN.[facility]IN[facility]09-03-[facility]23 History of Present illness Narrative* Suha Avelar APRN.WELDING MANAGER - 05/11/2023 12:45 PM EDT CC: Patient presents with: Urinary Problem: Low back pain, burning x 3 days And is 12 weeks . HPI Pratima Moreno is a 27 year old female who presents with complaint of possible UTI. These symptoms have been present for 3 days. Associated symptoms: burning, backpain, and abnormal vaginal discharge Denies: fever, chills, sweats, abdominal pain, and flank pain Treatments: nothing The ROS was otherwise negative. PMH, Medications, labs, allergies, and recent past visits with PCP were reviewed and updated as able. PHYSICAL EXAM: BP 98/64 Pulse 86 Temp 36.5 C (97.7 F) Resp 18 Wt 67.7 kg (149 lb 3.2 oz) LMP 02/08/2023 (Exact Date) SpO2 100% BMI 26.43 kg/m General: Well appearing and alert CV: Regular rate and rhythm without obvious murmur Lungs: clear to auscultation bilaterally Back: straight and symmetric Abdomen: soft, nontender, nondistended PAST MEDICAL HISTORY Diagnosis Date UTI (lower urinary tract infection) Yeast infection PAST SURGICAL HISTORY Procedure Laterality Date DELIVERY ONLY 11/25/2021 TONSILLECTOMY PRIMARY/SECONDARY <AGE 11 Tonsillectomy ALLERGIES Patient has no known allergies. MEDICATIONS PNV no.95/ferrous fum/folic ac ( ORAL) Take by mouth. BABY ASPIRIN ORAL Take 81 mg by mouth once daily. ondansetron (ZOFRAN) 4 mg tablet Take 1 tablet by mouth every 8 hours as needed for nausea/vomiting. albuterol HFA (PROVENTIL HFA, VENTOLIN HFA) 90 mcg/actuation inhaler Inhale 2 Puffs as instructed every 4 hours as needed. FAMILY HISTORY Problem Relation Age of Onset other (Kidney Issues [Other]) Paternal Grandmother Social History Tobacco Use Smoking status: Never Smokeless tobacco: Never Vaping Use Vaping Use: Never used Substance Use Topics Alcohol use: No Drug use: No ASSESSMENT/PLAN: 1. Burning with urination - ICD9: 788.1, ICD10: R30.0 - UA DIP, URINE (POC) - URINE CULTURE - BACTERIAL VAGINOSIS NAAT - HAIDER/TRICHOMONAS NAAT No treatment at this time. If anything comes back positive please treat accordingly. Potential red flag symptoms discussed with the patient. Reviewed appropriate action plan to take ifred flag symptoms occur. Patient agreeable to treatment plan. Patient will also stay in contact with her OB physician due to multiple risk factors from history of pregnancies. Suha Avelar APRN.SIN documented in this encounterNationwide Children'[facility]08-14-2023 NoteHNO ID: [id number] Author: Justine Goldman APRN.CNM Service: ? Author Type: [employer]er [employer] Type: Progress Notes Filed: 04/21/2023 4:31 PM Note Text: INITIAL OB ASSESSMENT OB Provider: Justine Goldman APRN CNM HPI: Pratima is a 27 year old White here to establish Obstetrical Care. Patient's last menstrual period was 02/08/2023 (exact date). from OB Dating Form. Cycles regular was planned CHANTELLE 11/24/22 per early ultrasound Patient is a transfer of care from [facility] of infertility- This occurred spontaneously. Complaints: Nausea and vomiting OB History T0 L0 SAB0 IAB0 Ectopic0 Multiple0 Live Births0 Previous history: Prior : yes x 1 History of 4th degree laceration: No History of shoulder dystocia: No History of Hypertensive disorders including pre-eclampsia, chronic hypertension or gestational hypertension: Yes - pre - E History of gestational diabetes: No Patient's Risk Screening for delivery: Have you had a prior rojas between 20w and 36w6d?: No MEDICAL/PSYCHOSOCIAL HISTORY: History of hemorrhage or bleeding concerns: Yes - hemorrhage w/ last labor Thyroid Disease: No History of chronic hypertension: No History of pre-existing diabetes: No No results found for: ABORHD BMI 25.69 kg/(m2) History of abnormal pap: No Prior treatment for cervical dysplasia: none. 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 I don't have enough money to pay my bills: Never Within the past 12 months, have you worried that your food would run out before you had money to buy more: Never In the past 12 months, has lack of reliable transportation kept you from going to medical appointments or work, or from keeping things needed for daily living: Never In the past 12 months, have you had any concerns about having a place to live, or about the condition or quality of your housing: Never Are there any cultural or spiritual needs we should be aware of: No Depression: denies symptoms of depression. OB Depression and Anxiety Screening- This Encounter (since 04/20/2023) Over the past 2 weeks have you felt down, depressed, or hopeless? Negative Over the past two weeks, have you felt little interest or pleasure in doing things?? Negative Feeling nervous, anxious or on edge 0-Not at all Not being able to stop or control worrying 0-Not al all Anxiety Pre-Screening Total (If >/= 3 additional questions will be reviewed) 0 GENETIC SCREENING: Partner present: No Patient verbalized knowledge of partner family health history: No Do you or your partner have any personal or family history of defects not previously discussed: No Do you have history of a complicated by anomaly, genetic condition, or demise: No Marital Status: Partner: Name: Cedric Age: 2 Occupation: Supervisor [employer] Gender: Male History of STDs: None PAST MEDICAL HISTORY Diagnosis Date UTI (lower urinary tract infection) Yeast infection PAST SURGICAL HISTORY Procedure Laterality Date TONSILLECTOMY PRIMARY/SECONDARY Tonsillectomy Current Outpatient Medications Medication Sig Dispense Refill PNV no.95/ferrous fum/folic ac ( ORAL) Take by mouth. BABY ASPIRIN ORAL Take 81 mg by mouth once daily. albuterol HFA (PROVENTIL HFA, VENTOLIN HFA) 90 mcg/actuation inhaler Inhale 2 Puffs as instructed every 4 hours as needed. 1 Inhaler 0 No current facility-administered medications for this visit. Allergies As of Date: 04/21/2023 (No Known Allergies) Fully Assessed 04/21/2023 Does patient have penicillin allergy: No REVIEW OF SYSTEMS: GENERAL: Negative for: Fever or Chills and Positive for: Fatigue HEENT: Negative for: Headache, Impaired Vision, Ringing in Ears, Nosebleeds NECK: Negative for: Swelling, Pain, Stiffness RESPIRATORY: Negative for: Cough, Shortness of breath, Wheezing GASTROINTESTINAL: Negative for: Heartburn, Constipation, Diarrhea, Blood in stool, Vomiting and Positive for: Nausea and Vomiting MUSCULOSKELETAL: Negative for: Muscle or joint pain, stiffness, Joint swelling NEUROLOGIC/PSYCHIATRIC: Negative for: Weakness, Paralysis, Numbness, Tingling, Tremor, Anxiety, Depression, Memory loss + PPD and anxiety/ last medication was Zoloft 25 mg last time in January SKIN: Negative for: Rash, Itching GENITOURINARY: Negative for: (more content not included)...[facility] History of Present illness Narrative* Justine Goldman APRN.DANIEL - 04/21/2023 3:22 PM EDT INITIAL OB ASSESSMENT OB Provider: Justine Goldman APRN CNM HPI: Pratima is a 27 year old White here to establish Obstetrical Care. Patient's last menstrual period was 02/08/2023 (exact date). from OB Dating Form. Cycles regular was planned CHANTELLE 11/24/22 per early ultrasound Patient is a transfer of care from [facility]- of infertility- This occurred spontaneously. Complaints: Nausea and vomiting OB History T0 L0 SAB0 IAB0 Ectopic0 Multiple0 Live Births0 Previous history: Prior : yes x 1 History of 4th degree laceration: No History of shoulder dystocia: No History of Hypertensive disorders including pre-eclampsia, chronic hypertension or gestational hypertension: Yes - pre - E History of gestational diabetes: No Patient's Risk Screening for delivery: Have you had a prior rojas between 20w and 36w6d?: No MEDICAL/PSYCHOSOCIAL HISTORY: History of hemorrhage or bleeding concerns: Yes - hemorrhage w/ last labor Thyroid Disease: No History of chronic hypertension: No History of pre-existing diabetes: No No results found for: ABORHD BMI 25.69 kg/(m^2) History of abnormal pap: No Prior treatment for cervical dysplasia: none. 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 I don't have enough money to pay my bills: Never Within the past 12 months, have you worried that your food would run out before you had money to buy more: Never In the past 12 months, has lack of reliable transportation kept you from going to medical appointments or work, or from keeping things needed for daily living: Never In the past 12 months, have you had any concerns about having a place to live, or about the condition or quality of your housing: Never Are there any cultural or spiritual needs we should be aware of: No Depression: denies symptoms of depression. OB Depression and Anxiety Screening- This Encounter (since 04/20/2023) Over the past 2 weeks have you felt down, depressed, or hopeless? Negative Over the past two weeks, have you felt little interest or pleasure in doing things? Negative Feeling nervous, anxious or on edge 0-Not at all Not being able to stop or control worrying 0-Not al all Anxiety Pre-Screening Total (If >/= 3 additional questions will be reviewed) 0 GENETIC SCREENING: Partner present: No Patient verbalized knowledge of partner family health history: No Do you or your partner have any personal or family history of defects not previously discussed: No Do you have history of a complicated by anomaly, genetic condition, or demise: No Marital Status: Partner: Name: Cedric Age: 2 Occupation: Supervisor [employer] Gender: Male History of STDs: None PAST MEDICAL HISTORY Diagnosis Date UTI (lower urinary tract infection) Yeast infection PAST SURGICAL HISTORY Procedure Laterality Date TONSILLECTOMY PRIMARY/SECONDARY <AGE 11 Tonsillectomy Current Outpatient Medications Medication Sig Dispense Refill PNV no.95/ferrous fum/folic ac ( ORAL) Take by mouth. BABY ASPIRIN ORAL Take 81 mg by mouth once daily. albuterol HFA (PROVENTIL HFA, VENTOLIN HFA) 90 mcg/actuation inhaler Inhale 2 Puffs as instructed every 4 hours as needed. 1 Inhaler 0 No current facility-administered medications for this visit. Allergies As of Date: 04/21/2023 (No Known Allergies) Fully Assessed 04/21/2023 Does patient have penicillin allergy: No REVIEW OF SYSTEMS: GENERAL: Negative for: Fever or Chills and Positive for: Fatigue HEENT: Negative for: Headache, Impaired Vision, Ringing in Ears, Nosebleeds NECK: Negative for: Swelling, Pain, Stiffness RESPIRATORY: Negative for: Cough, Shortness of breath, Wheezing GASTROINTESTINAL: Negative for: Heartburn, Constipation, Diarrhea, Blood in stool, Vomiting and Positive for: Nausea and Vomiting MUSCULOSKELETAL: Negative for: Muscle or joint pain, stiffness, Joint swelling NEUROLOGIC/PSYCHIATRIC: Negative for: Weakness, Paralysis, Numbness, Tingling, Tremor, Anxiety, Depression, Memory loss + PPD and anxiety/ last medication was Zoloft 25 mg last time in January SKIN: Negative for: Rash, Itching GENITOURINARY: Negative for: vaginal itching, vaginal discharge, hematuria or dysuria and Positive for: urinary frequency PHYSICAL EXAM: BP 110/68 Ht 5' 3 (1.60m) Wt 145 lb (65.8kg) LMP 02/08/2023 BMI 25.69 kg/(m^2). GENERAL: pleasant in no apparent distress DERMATOLOGY: Normal and without lesions NECK: Supple and full range of motion CHEST: Normal inspiratory effort BREAST: deferred ABDOMEN: soft, non-tender, and no masses NEURO: alert and oriented x3,exam grossly non-focal Limited OB ultrasound exam: TAUS single intrauterine , positive cardiac activity, and crown-rump length 8.3 weeks OB Risk Screening: Completed, no positive findings documented. ASSESSMENT/PLAN: 1. 8 weeks gestation of - ICD9: V22.2, ICD10: Z3A.08 (primary diagnosis) 2. History of delivery affecting - ICD9: 654.20, ICD10: O34.219 3. History of placenta abruption - ICD9: V13.29, ICD10: Z87.59 4. Nausea and vomiting during - ICD9: 643.90, ICD10: O21.9 5. Supervision of with history of infertility, first trimester - ICD9: V23.0, ICD10: O09.01 PLAN: 1) Patient oriented to practice. Discussed nutrition, folic acid supplementation, dietary guidelines, exercise, smoking, alcohol, caffeine, and drug use. Discussed gestational weight gain guidelines. Discussed how to access Your guide to a health and the Chief Deputy Coroner. Discussed aneuploidy and carrier screening. Regarding aneuploidy screening, nuchal translucency/first trimester early anatomy ultrasound and NIPT were discussed. Regarding carrier screening, the myriad screen was discussed. The risks/benefits and limitations of NIPT/aneuploidy screening were reviewed including the potential for false negative and false positive results. We discussed the availability of professional-society guided carrier screening and reviewed the conditions screened and limitations of screening. The availability of genetic counseling was reviewed. Information on aneuploidy/carrier screening was provided. The patient chooses: Aneuploidy screening: chooses to proceed with First trimester early anatomy ultrasound (12-13w6d) Reviewed midwifery and creel hand services that are available. 2) History of section: Pt counselled regarding TOLAC versus Repeat Section. Repeat C/S. 3) ASA 4) Zofran 4 mg PO PRN nausea/vomiting 5) Patient signed release for records- had all labs / PAP/ GC completed Follow up in 4 weeks or sooner for NT and DEWAYNE Goldman APRN.CNM [facility] Instructions* Patient Instructions* Maxwell Harper Cma - 04/21/2023 3:22 PM EDT Please select the following link to access the [facility] Your Guide to a Healthy . [email or web address] documented in this encounterNationwide [facility]08-09-2023 NoteHNO ID: [id number] Author: Justine Goldman APRN.CNM Service: ? Author Type: Presser Cotton Ginning Type: Progress Notes Filed: 04/16/2023 9:53 AM Note Text: Patient to schedule for NOB with dating ultrasound. Justine [facility] History of Present illness Narrative* Justine Goldman APRN.CNM - 04/16/2023 9:51 AM EDT Patient to schedule for NOB with dating ultrasound. Justine Goldman APRN.CNM documented in this encounterNationwide [facility]07-29-2022 History of Present illness Narrative* Vasyl Ann MD - 04/05/2022 11:09 AM EDT Patient presents with: Sore Throat: sinus drainage x1 day, recent positive covid HPI: Feeling sick since yesterday. She had COVID a few weeks ago. Positive symptoms: slight lingering Cough, Sore throat, Ear drainage (internal), Fever, Chills, Body Aches, Headache, Negative symptoms: Nasal Congestion, Rhinorrhea, Vomiting, Diarrhea, OTC: Tylenol COVID symptoms began 03/20/22. Positive home COVID test. MEDICATIONS: Current Outpatient Medications Medication Sig fluticasone (FLONASE) 50 mcg/actuation nasal spray Use 2 Sprays in each nostril daily at bedtime for 14 days. letrozole (FEMARA) 2.5 mg tablet TAKE 1 TABLET BY MOUTH ONCE DAILY. CYCLE DAY 3-7 albuterol HFA (PROVENTIL HFA, VENTOLIN HFA) 90 mcg/actuation inhaler Inhale 2 Puffs as instructed every 4 hours as needed. No current facility-administered medications for this visit. ALLERGIES: ALLERGIES No Known Allergies VITALS: BP 98/62 Pulse 107 Temp 36.7 C (98 F) Resp 20 Wt 66.4 kg (146 lb 6.4 oz) LMP 03/11/2020 SpO2 99% BMI 25.93 kg/m PHYSICAL EXAM: GEN: mildly ill appearing HEENT: PERRL, EOMI, conjunctiva clear Ears: canals clear. TMs without erythema, bulge, or effusion Sinuses: non-tender frontal sinus, non-tender maxillary sinuses Throat: moist mucous membranes, mild erythema, no exudate Neck: supple, no thyromegaly, no lymphadenopathy HEART: regular rate and rhythm, no murmurs LUNGS: clear to auscultation, no wheezes or crackles, no increased WOB ASSESSMENT/PLAN: 1. Sore throat - ICD9: 462, ICD10: J02.9 - STREP A MOLECULAR (POC) - negative. - suspect viral pharyngitis - Discussed supportive care treatment with rest and analgesia. Currently breast feeding. Too early for mono testing. Vasyl Ann MD documented in this encounterNationwide [facility]07-17-2022 History of Present illness Narrative* Rosetta Perez APRN.[facility] - 03/24/2022 12:53 PM EDT Telemedicine Evaluation for COVID-19 Infection MyChart video visit was used for evaluation of this patient. Location of patient: [facility] Pratima Moreno is a 26 year old female who presents with 5 days of symptoms that are worsening. Has asthma and chest is burning and tight + covid test Symptoms include: Fever (?100.4F): No or Chills: No Cough: Yes Shortness of breath: Yes or Difficulty breathing: No Fatigue: Yes Muscle aches: Yes Headache: Yes New loss of smell or taste: No Sore throat: Yes Nasal congestion: Yes or Rhinorrhea: Yes Nausea: No or Vomiting: No Diarrhea: Yes OTC meds/remedies that patient has tried: NSAIDs and albuterol at bedtime. High risk category assessment Chronic lung disease Exposures: Sick contacts? Yes Family or close contacts with confirmed/probable COVID-19 in last 14 days? Yes She reports that she has never smoked. She has never used smokeless tobacco. OBJECTIVE VIDEO EXAM (if available) GENERAL: well appearing, alert, in no acute distress HEENT: no conjunctival injection, pupils equal, moist mucous membranes, sinuses non-tender to self-palpation and no cervical adenopathy by self-palpation PULMONARY: breathing comfortably on room air , no coughing noted and no wheezing noted ASSESSMENT/PLAN (U07.1) COVID-19 (primary encounter diagnosis) - Qualify, but declines antiviral treatment at this time - Tx asthma exacerbation with prednisone burst and increase albuterol usage to 2 puffs every 4 hours as needed. - Rx tessalon for cough r/t post nasal drip - Rx Astelin for nasal congestion and runny nose - Rotated tylenol and ibuprofen for fever and aches. - Discussed symptom monitoring and supportive care - Red flag symptoms requiring follow up discussed This patient encounter involved the screening or treatment of novel coronavirus infection (COVID-19). The following approved medication requests have been transmitted electronically. Signed Prescriptions Disp Refills predniSONE (DELTASONE) 20 mg tablet 10 tablet 0 Sig: Take 2 tablets by mouth once daily for 5 days. benzonatate (TESSALON PERLE) 100 mg capsule 60 capsule 0 Sig: Take 1-2 capsules every 8 hours as needed. fluticasone (FLONASE) 50 mcg/actuation nasal spray 16 g 0 Sig: Use 2 Sprays in each nostril daily at bedtime for 14 days. Rosetta Perez APRN.CNP [facility]* Diagnosis COVID-19- Primary Mild intermittent asthma with acute exacerbation Unspecified asthma, with exacerbation documented in this encounter [facility] note* Diagnosis Sore throat- Primary Acute pharyngitis documented in this encounter [facility] note* Diagnosis with fetus of unknown gestational age- Primary [facility]* Diagnosis 8 weeks gestation of - Primary state, incidental History of delivery affecting History of placenta abruption Personal history of other genital system and obstetric disorders Nausea and vomiting during Supervision of with history of infertility, first trimester [facility] encounter [facility]* Diagnosis Burning with urination- Primary Dysuria [facility]* Diagnosis 12 weeks gestation of - Primary state, incidental History of delivery affecting History of placenta abruption Personal history of other genital system and obstetric disorders documented in this encounter [facility]* Diagnosis 22 weeks gestation of - Primary state, incidental Encounter for supervision of other normal in second trimester Pelvic pain during documented [facility] this encounter [facility]* Diagnosis Sore throat- Primary Acute pharyngitis [facility]* Diagnosis Visual disturbances- Primary Unspecified visual disturbance documented in this encounter [facility] note* Diagnosis Encounter for supervision of other normal in third trimester- Primary 33 weeks gestation of state, incidental History of pre-eclampsia in prior , currently with other poor obstetric history History of delivery, currently Previous delivery, unspecified as to episode of care or not applicable Pruritus Unspecified pruritic disorder documented in this encounter [facility] note* Diagnosis Cholestasis during in third trimester- Primary 34 weeks gestation of state, incidental documented in this encounter [facility] note* Diagnosis Cholestasis during in third trimester- Primary 34 weeks gestation of state, incidental documented in this encounter [facility] note* Diagnosis Need for vaccination- Primary Need for prophylactic vaccination and inoculation against unspecified single disease Pruritus Unspecified pruritic disorder Cholestasis during in third trimester History of delivery, currently Previous delivery, unspecified as to episode of care or not applicable History of pre-eclampsia in prior , currently with other poor obstetric history documented in this encounter [facility] note* Diagnosis Cholestasis during in third trimester- Primary 34 weeks gestation of state, incidental History of pre-eclampsia in prior , currently with other poor obstetric history documented in this encounter [facility] note* Diagnosis Cholestasis during in third trimester- Primary 35 weeks gestation of state, incidental documented in this encounter [facility] note* Diagnosis 35 weeks gestation of - Primary state, incidental Cholestasis during in third trimester History of pre-eclampsia in prior , currently with other poor obstetric history History of delivery, currently Previous delivery, unspecified as to episode of care or not applicable Supervision of other high risk pregnancies, third trimester documented in this encounter [facility] for referral (narrative)* Diagnostic Procedure Only (Routine) - Pending Review Specialty Diagnoses / Procedures Referred By Billie kim Referred To Contact [facility] Diagnoses with fetus of unknown gestational age Procedures OBSTETRIC ULTRASOUND WHI US PREG UTERUS AFTER 1ST TRIMEST GESTATION Justine Goldman APRN.CNM [address] [place] [address] [address] Referral ID Status Reason Start Date Expiration Date Visits Requested Visits Authorized [id number] Pending Review Auto-Generat ed Referral 04/16/2023 04/15/2024 1 1 [facility] for referral (narrative)* Diagnostic Procedure Only (Routine) - Authorized Specialty Diagnoses / Procedures Referred By Contac t Referred To Contact [facility] Diagnoses 8 weeks gestation of Procedures NUCHAL TRANSLUCENCY WHI US NUCHAL TRANSLUCENCY 1ST GESTATION Justine Goldman APRN.CNM [address] [place] [address] [address] Referral ID Status Reason Start Date Expiration Date Visits Requested Visits Authorized [id number] Authorized Auto-Generat ed Referral 04/21/2023 04/20/2024 1 1 * Diagnostic Procedure Only (Routine) - Pending Review Specialty Diagnoses / Procedures Referred By Billie t Referred To Contact [facility] Diagnoses 8 weeks gestation of Procedures OBSTETRIC ULTRASOUND WHI US PREG UTERUS AFTER 1ST TRIMEST 1 GESTATION Justine Goldman APRN.CNM [address] [place] [place] [address] [facility] [place] [id number] Referral ID Status Reason Start Date Expiration Date Visits Requested Visits Authorized [id number] Pending Review Auto-Generat ed Referral 04/21/2023 04/20/2024 1 1 [facility] for referral (narrative)* Diagnostic Procedure Only (Routine) - Pending Review Specialty Diagnoses / Procedures Referred By Contac t Referred To Contact [facility] Diagnoses Cholestasis during in third trimester 34 weeks gestation of Procedures BIOPHYSICAL PROFILE US WHI BIOPHYSICAL PROFILE NON-STRESS TESTING Justine Goldman APRN.CNM [address] [place] [address] [address] Referral ID Status Reason Start Date Expiration Date Visits Requested Visits Authorized [id number] Pending Review Auto-Generat ed Referral 10/15/2023 10/14/2024 10 1 [facility] Summary Purpose Family History No Family History Records FoundNo Family History Records FoundNo Family History Records FoundNo Family History Records FoundNo Family History Records Found Advance Directives No Advanced Directives Records FoundDocuments on File Type Date Recorded Patient Refinish Technician Expl anation Advance Directives and Livin g Will 08/24/2020 10:47 AM Discharge Instructions * Patient Instructions* Nely Rivero RN - 08/24/2020 10:29 AM EST The following are resources for follow up including clinics for those with low/no income. [facility] [place]: Walk in clinic: 9am-7pm (M-F) [address] [address] Call ahead: [phone] [facility]: Call [phone] or [email or web address] FINANCIAL ASSISTANCE: [facility] Financial Assistance: Medical financial assistance is offered to patients with limited resources and inadequate medical insurance coverage. Eligibility is determined by family income. Please visit: [email or web address] [facility] Financial Assistance Office: [phone] [place]: [phone] [facility]: [phone] Billing Department: [phone] Medicaid (Medical Assistance) is a Federal-State health insurance program for people who need financial assistance to pay for medical expenses. Eligibility is based on household income and household size according to the federal poverty level guidelines. Call your local Department of Job and FamilyServices or: Medicaid Consumer Hotline: *Choice Counselors available to help you select managed care plan or make changes. To apply, renew, report Medicaid changes: Call Benefits [place] at or visit https://benefits.[place].gov/ to apply. Click Check your eligibility and follow the prompts. The Health Insurance Marketplace Allows you to compare health insurance plans, find out if you are eligible for tax credits for private insurance or other health programs, and enroll in a health insurance plan that meets your needs. For information, call: or visit: www.23press.gov/ \ Connecting with a Primary Care Provider or Family Doctor is important for your continued health. Please visit [email or web address] and search for a Primary Care provider near your address. Many offer online scheduling to help connect you to a provider. You may also call [phone], or and speak to our termite control service representative to schedule with a provider. * Attachments The following attachments cannot be sent through Care Everywhere. * Diarrhea (Nigerian) * COVID-19 SELF ISOLATION DISCHARGE INSTRUCTIONS documented in this encounter Assessments Diagnosis Exposure to Covid-19 Virus- Primary Diarrhea, unspecified type Health Concerns Problem Noted Date Diagnosed Date [facility] - [facility] 04/21/2023 [place] - [place] 04/21/2023 Problem Noted Date Diagnosed Date [facility] - [facility] 04/21/2023 [place] - [place] 04/21/2023 Problem Noted Date Diagnosed Date [facility] - [facility] 04/21/2023 [place] - [place] 04/21/2023 Problem Noted Date Diagnosed Date [facility] - [facility] 04/21/2023 Education - [place] 04/21/2023 Problem Noted Date Diagnosed Date [facility] - [facility] 04/21/2023 Education - [place] 04/21/2023 Problem Noted Date Diagnosed Date [facility] - [facility] 04/21/2023 Education - [place] 04/21/2023 Problem Noted Date Diagnosed Date [facility] - [facility] 04/21/2023 Education - [place] 04/21/2023 Problem Noted Date Diagnosed Date [facility] - [facility] 04/21/2023 Education - [place] 04/21/2023 Problem Noted Date Diagnosed Date [facility] - [facility] 04/21/2023 Education - [place] 04/21/2023 Problem Noted Date Diagnosed Date [facility] - [facility] 04/21/2023 Education - [place] 04/21/2023 Problem Noted Date Diagnosed Date [facility] - [facility] 04/21/2023 Education - [place] 04/21/2023 Problem Noted Date Diagnosed Date [facility] - [facility] 04/21/2023 Education - [place] 04/21/2023 Problem Noted Date Diagnosed Date [facility] - [facility] 04/21/2023 Education - [place] 04/21/2023 Problem Noted Date Diagnosed Date [facility] - [facility] 04/21/2023 [place] - [place] 04/21/2023 Reason for Referral Specialty Diagnoses / Procedures Referred By Billie kim Referred To Contact [facility] Diagnoses 22 weeks gestation of Pelvic pain during Procedures CONSULT TO PHYSICAL THERAPY PHYSICAL THERAPY EVALUATION HIGH COMPLEX 45 MINS Justine Goldman APRN.CN [address] [place] [address] [facility] [address] [address] Referral ID Status Reason Start Date Expiration Date Visits Requested Visits Authorized [id number] Pending Review Auto-Generat ed Referral 3 07/27/2024 1 1 Additional Source Comments INFORMATION SOURCE (unrecogn ized section and content) DATE CREATED AUTHOR AUTHOR'S ORGANIZ ATION 06/16/2020 [facility] DATE CREATED AUTHOR AUTHOR'S ORGANIZ ATION 08/27/2020 [facility] DATE CREATED AUTHOR AUTHOR'S ORGANIZ ATION 07/29/2022 [facility] DATE CREATED AUTHOR AUTHOR'S ORGANIZ ATION 10/27/2023 [facility] Reason for Visit (unrecogniz ed section and content) Reason Comments Covid19 Concern Asthma Reason Comments Sore Throat sinus drainage x1 da y, recent positive covid Reason Comments Care Reason Comments Urinary Problem Low back pain, burni ng x 3 days Reason Comments Results Reason Onset Date Comments Care 07/28/2023 Reason Comments Sore Throat X3 days Reason Comments Orders Reason Onset Date Comments Care 10/13/2023 Reason Comments US Specialty Diagnoses / Procedures Referred By Billie kim Referred To Contact [facility] Diagnoses Cholestasis during in third trimester 34 weeks gestation of Procedures BIOPHYSICAL PROFILE US WHI BIOPHYSICAL PROFILE NON-STRESS TESTING BIOPHYSICAL PROFILE W/O NON-STRESS TESTING Justine Goldman APRN.M [address] [place] [address] [facility] [address] [place] [address] Referral ID Status Reason Start Date Expiration Date V isits Requested Visits Authorized [id number] Closed Auto-Generate d Referral 10/16/2023 09/07/2024 1 1 Reason Onset Date Comments Care 10/20/2023 Reason Onset Date Comments Care 10/27/2023 Dione Rivas MD - 08/24/2020 11:16 AM Harry Headley RN - 08/24/2020 10:30 AM EST ED Notes (unrecognized secti on and content) ED PROVIDER NOTE [facility] EMERGENCY DEPARTMENT NAME: Pratima Moreno AGE: 25 y.o. : 1995 VISIT DATE: 08/24/2020 CSN: [id number] PCP: Physician No Chief Complaint Patient presents with Chills Headache Diarrhea Generalized Body Aches 25-year-old female who presents to the emergency department with of nausea, headache, body aches, chills, and diarrhea. The diarrhea is nonbloody. No fever. Patient's was recently diagnosed with COVID-19. Patient has not had any vomiting. No shortness of breath or chest pain. Is concerned she may have Covid History reviewed. No pertinent past medical history. No past surgical history on file. History reviewed. No pertinent family history. Social History Socioeconomic History Marital status: Spouse name: Not on file Number of children: Not on file Years of education: Not on file Highest education level: Not on file Occupational History Not on file Social Needs Financial resource strain: Not on file Food insecurity Worry: Not on file Inability: Not on file Transportation needs Medical: Not on file Non-medical: Not on file Tobacco Use Smoking status: Not on file Substance and Sexual Activity Alcohol use: Not on file Drug use: Not on file Sexual activity: Not on file Lifestyle Physical activity Days per week: Not on file Minutes per session: Not on file Stress: Not on file Relationships Social connections Talks on phone: Not on file Gets together: Not on file Attends anabaptist service: Not on file Active member of club or organization: Not on file Attends meetings of clubs or organizations: Not on file Relationship status: Not on file Other Topics Concern Not on file Social History Narrative Not on file No current outpatient medications on file prior to encounter. No Known Allergies Review of Systems All other systems reviewed and are negative. Patient Vitals for the past 24 hrs: BP Temp Temp src Pulse Resp SpO2 Height Weight 08/24/20 1033 109/65 99 F (37.2 C) Oral 86 16 98 % 5' 3 63.5 kg (140 lb) Physical Exam Vitals signs and nursing note reviewed. Constitutional: Appearance: She is well-developed. HENT: Head: Normocephalic and atraumatic. Eyes: Pupils: Pupils are equal, round, and reactive to light. Neck: Musculoskeletal: Normal range of motion and neck supple. Cardiovascular: Rate and Rhythm: Normal rate and regular rhythm. Pulmonary: Effort: Pulmonary effort is normal. No respiratory distress. Breath sounds: Normal breath sounds. Abdominal: General: There is no distension. Palpations: Abdomen is soft. Tenderness: There is no abdominal tenderness. Musculoskeletal: General: No deformity. Skin: General: Skin is warm and dry. Capillary Refill: Capillary refill takes less than 2 seconds. Neurological: Mental Status: She is alert and oriented to person, place, and time. Cranial Nerves: No cranial nerve deficit. Psychiatric: Mood and Affect: Mood normal. Behavior: Behavior normal. Laboratory & Radiographic Imaging (if done): Results for orders placed or performed during the hospital encounter of 08/24/20 COVID-19, Molecular Specimen: Nasopharyngeal; Swab Result Value Ref Range SARS-CoV-2 Not Detected Not Detected No orders to display Procedures MDM . . Clinical Impression: 1. Exposure to Covid-19 Virus 2. Diarrhea, unspecified type ED Disposition ED Disposition Condition Comment Discharge Stable Pratima Moreno discharged to home/self care in stable condition. Follow-up Information 1. Please follow up. See your doctor as needed Contact information for after-discharge care Follow-up information has not been specified. Dione Rivas MD 08/24/20 1117 C/o diarrhea, abd cramping, x 4 days. Headache and chills since yesterday. was positive for Covid. documented in this encounter Source Comments (unrecognize d section and content) In the event this informatio n is protected by the Federal Confidentiality of Alcohol and Drug Abuse Patient Records regulations: The Federal rules restrict any use of the information to criminally investigate or prosecute any alcohol or drug abuse patient.[facility] the event this information is protected by the Federal Confidentiality of Alcohol and Drug Abuse Patient Records regulations: The Federal rules restrict any use of the information to criminally investigate or prosecute any alcohol or drug abuse patient.[facility] the event this information is protected by the Federal Confidentiality of Alcohol and Drug Abuse Patient Records regulations: The Federal rules restrict any use of the information to criminally investigate or prosecute any alcohol or drug abuse patient.[facility] the event this information is protected by the Federal Confidentiality of Alcohol and Drug Abuse Patient Records regulations: The Federal rules restrict any use of the information to criminally investigate or prosecute any alcohol or drug abuse patient.[facility] the event this information is protected by the Federal Confidentiality of Alcohol and Drug Abuse Patient Records regulations: The Federal rules restrict any use of the information to criminally investigate or prosecute any alcohol or drug abuse patient.[facility] the event this information is protected by the Federal Confidentiality of Alcohol and Drug Abuse Patient Records regulations: The Federal rules restrict any use of the information to criminally investigate or prosecute any alcohol or drug abuse patient.[facility] the event this information is protected by the Federal Confidentiality of Alcohol and Drug Abuse Patient Records regulations: The Federal rules restrict any use of the information to criminally investigate or prosecute any alcohol or drug abuse patient.[facility] the event this information is protected by the Federal Confidentiality of Alcohol and Drug Abuse Patient Records regulations: The Federal rules restrict any use of the information to criminally investigate or prosecute any alcohol or drug abuse patient.[facility] Hospital[facility] the event this information is protected by the Federal Confidentiality of Alcohol and Drug Abuse Patient Records regulations: The Federal rules restrict any use of the information to criminally investigate or prosecute any alcohol or drug abuse patient.[facility] Hospital[facility] the event this information is protected by the Federal Confidentiality of Alcohol and Drug Abuse Patient Records regulations: The Federal rules restrict any use of the information to criminally investigate or prosecute any alcohol or drug abuse patient.[facility] HospitalIn the event this information is protected by the Federal Confidentiality of Alcohol and Drug Abuse Patient Records regulations: The Federal rules restrict any use of the information to criminally investigate or prosecute any alcohol or drug abuse patient.[facility] Hospital[facility] the event this information is protected by the Federal Confidentiality of Alcohol and Drug Abuse Patient Records regulations: The Federal rules restrict any use of the information to criminally investigate or prosecute any alcohol or drug abuse patient.[facility] the event this information is protected by the Federal Confidentiality of Alcohol and Drug Abuse Patient Records regulations: The Federal rules restrict any use of the information to criminally investigate or prosecute any alcohol or drug abuse patient.[facility] Hospital[facility] the event this information is protected by the Federal Confidentiality of Alcohol and Drug Abuse Patient Records regulations: The Federal rules restrict any use of the information to criminally investigate or prosecute any alcohol or drug abuse patient.[facility] HospitalIn the event this information is protected by the Federal Confidentiality of Alcohol and Drug Abuse Patient Records regulations: The Federal rules restrict any use of the information to criminally investigate or prosecute any alcohol or drug abuse patient.[facility] the event this information is protected by the Federal Confidentiality of Alcohol and Drug Abuse Patient Records regulations: The Federal rules restrict any use of the information to criminally investigate or prosecute any alcohol or drug abuse patient.[facility] HospitalIn the event this information is protected by the Federal Confidentiality of Alcohol and Drug Abuse Patient Records regulations: The Federal rules restrict any use of the information to criminally investigate or prosecute any alcohol or drug abuse patient.[facility] HospitalIn the event this information is protected by the Federal Confidentiality of Alcohol and Drug Abuse Patient Records regulations: The Federal rules restrict any use of the information to criminally investigate or prosecute any alcohol or drug abuse patient.[facility] Hospital[facility] the event this information is protected by the Federal Confidentiality of Alcohol and Drug Abuse Patient Records regulations: The Federal rules restrict any use of the information to criminally investigate or prosecute any alcohol or drug abuse patient.[facility] FOR RECORDS PERTAINING TO PATIENTS WHO ARE OR HAVE BEEN ENROLLED IN A CHEMICAL DEPENDENCY/SUBSTANCEABUSE PROGRAM, SOME INFORMATION MAY BE OMITTED. This clinical summary was aggregated from multiple sources. Caution should be exercised in using it in the provision of clinical care. This summary normalizes information from multiple sources, and as a consequence, information in this document may materially change the coding, format and clinical context of patient data. In addition, data may be omitted in some cases. CLINICAL DECISIONS SHOULD BE BASED ON THE PRIMARY CLINICAL RECORDS. [facility] [employer] [facility]. provides no warranty or guarantee of the accuracy or completeness of information in this document.
[2023-11-01 13:23] VITALS: PULSE 86; O2SAT 98
[2023-11-01 13:40] VITALS: BP 102/56; PULSE 90
[2023-11-01 13:40] LABS: Hematocrit 38.5 % (37-47); Hemoglobin 12.4 g/dL (12.0-15.0); Mean Corp Hgb Conc 32.2 g/dL (32-36); Mean Corpuscular Hgb 30.1 pg (27.0-32.0); Mean Corpuscular Volume 93.4 fL (81-99); Mean Platelet Vol. 10.6 fl (6.2-12.0); Platelet Count 166 K/mm3 (150-450); RBC Distribution Width CV 15.7 % (11.6-14.6); RBC Distribution Width SD 53.6 fl (35.1-43.9); Red Blood Count 4.12 M/mm3 (4.2-5.4); White Blood Count 9.3 K/mm3 (4.4-11.0)
[2023-11-01 13:53] VITALS: BP 93/55; PULSE 80
[2023-11-01 13:59] LABS: AST(SGOT) 16 U/L (15-37); Alanine Aminotransfer ALT/SGPT 20 U/L (13-56); Creatinine, Serum 0.78 mg/dL (0.55-1.02); EST Glomerular Filtration Rate 93 mL/min (>60); Est Glom Filt Rate - Afr Amer 112 mL/min (>60); Estimated Creatinine Clearance 106.51 ml/min; Uric Acid 5.1 mg/dL (2.6-6.0)
[2023-11-01 14:02] LABS: Protein, Urine (Random) 27.8 mg/dL (<11.9); Protein:Creat Ratio 240 mg/g CRE (0-200)
[2023-11-01 14:08] VITALS: BP 92/56
--- NOTE | 2023-11-02 20:38 | OB.TRI.HP_ITS ---
HPI - General General Date of Admission: 11/01/23 Date of Service: 11/01/23 Chief Complaint: rule out pre e HPI Narrative ROSA MORENO, is a 28 F who presents for elevated BP at home. No severe persistent MORROW's, vision changes, RUQ pain, N/V. No ctx, vb, lof. Good FM. ON LICENSE OF [facility] PFS Medical History (Updated 11/02/23 @ 20:[address] Radha Holguin, DO) Anxiety and depression Asthma Depression Dysmenorrhea Primary female infertility Home Medications albuterol sulfate 90 mcg/actuation aerosol inhaler 1 puff inhalation Q6H PRN PRN Sob &/Or Wheezing 05/30/20 [History Last Taken 11/18/21] eowxfhih-nee-Rg-FA 1 mg tablet 1 tab PO DAILY 09/07/21 [History Last Taken 10/31/23] aspirin 81 mg chewable tablet (Abhilash Chewable Low Dose Aspirin) 1 tab PO DAILY hx preeclampsia/recurrent miscarriage 11/01/23 [History Last Taken 10/31/23] ursodiol 200 mg capsule 200 mg PO BID possible cholestasis 11/01/23 [History Last Taken 10/31/23] Allergy/AdvReac Type Severity Reaction Status Date / Time No Known Allergies Allergy Verified 11/01/23 13:20 Family History (Updated 11/25/21 @ 01:[address] Gisella Perry MD) Mother Fibromyalgia Celiac disease Sister Autoimmune disease Surgical History (Updated 03/30/22 @ 18:01 by Nikki Tipton) chromotubation Endometriosis determined by laparoscopy fulguration of endometriosis History of bladder surgery S/P tonsillectomy and adenoidectomy Social History (Updated 06/28/20 @ 19:[address] 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 No symptoms of pre e. Pre e labs WNL. BP's are normal. D/c home. (2) History of pre-eclampsia in prior , currently :
== END 2023-11-01 14:25 | disposition home or self-care (01) ==
LOC: WPOUT 12:48 → WP 12:49
PROVIDERS: PCP Family Medicine; Visit Provider Obstetrics & Gynecology
DX: O26.893 Other specified pregnancy related conditions, third trimester (principal); R03.0 Elevated blood-pressure reading, without diagnosis of hypertension; Z3A.36 36 weeks gestation of pregnancy; Z87.59 Personal history of other complications of pregnancy, childbirth and the puerperium
CPT/HCPCS: 36415; 59025; 59050; 82565; 82570; 84156; 84450; 84460; 84550; 85027; 99221; G0378

== ENCOUNTER 2023-11-03 10:48 | Inpatient (IN) | payer MEDICAID, SELFPAY ==
[2023-11-03] VITALS (16 sets, daily range): BP systolic 78–110; BP diastolic 49–71; PULSE 70–93; RESP 12–17; TEMP 35.9–36.7; O2SAT 96–100; BMI 30.4
--- NOTE | 2023-11-03 11:03 | HP.PCM_ITS ---
History and Physical Date of Admission: 11/03/23 HPI: The patient is a 28 year old female presenting for pre-operative visit. She is scheduled for , for h/o abruption, cholestasis and variable decel on November 03, 2023. Procedure discussed along with risks, benefits and complications. Other alternatives discussed for management. Consent form signed? Yes. ? ? PAST MEDICAL HISTORY PAST MEDICAL HISTORY Diagnosis Date ? UTI (lower urinary tract infection) ? ? Yeast infection ? ? ? PAST SURGICAL HISTORY PAST SURGICAL HISTORY Procedure Laterality Date ? DELIVERY ONLY ? 11/25/2021 ? TONSILLECTOMY PRIMARY/SECONDARY <AGE 12 ? ? ? Tonsillectomy ? ? ? CURRENT MEDICATIONS Current Outpatient Medications Medication Sig Dispense Refill ? acyclovir (ZOVIRAX) 400 mg tablet Take 1 tablet by mouth three times a day. 90 tablet 4 ? ursodiol (ACTIGALL) 300 mg capsule Take 1 capsule by mouth three times a day. 90 capsule 0 ? hydrOXYzine pamoate (VISTARIL) 25 mg capsule Take 1 capsule by mouth three times a day as needed. 60 capsule 0 ? Miscellaneous Medical Supply (BLOOD PRESSURE CUFF) 1 Each once daily. 1 Each 0 ? PNV no.95/ferrous fum/folic ac ( ORAL) Take by mouth. ? ? ? BABY ASPIRIN ORAL Take 81 mg by mouth once daily. ? ? ? albuterol HFA (PROVENTIL HFA, VENTOLIN HFA) 90 mcg/actuation inhaler Inhale 2 Puffs as instructed every 4 hours as needed. 1 Inhaler 0 ? No current facility-administered medications for this visit. ? ? ALLERGIES: Patient has no known allergies. ? PERSONAL HISTORY: SOCIAL HISTORY Social History ? Tobacco Use ? Smoking status: Never ? Smokeless tobacco: Never Vaping Use ? Vaping Use: Never used Substance Use Topics ? Alcohol use: No ? Drug use: No ? FAMILY HISTORY: FAMILY HISTORY FAMILY HISTORY Problem Relation Age of Onset ? other (Kidney Issues [Other]) Paternal Grandmother ? ? ? REVIEW OF SYMPTOMS: GENERAL: denies fevers or chills ENDOCRINOLOGY: has not been on steroids Cardiology : denies palpitations or chest pain Respiratory: denies SOB or cough Hematology: denies history of prolonged bleeding or easy bruising or VTE Allergy: Denies history of personal or family history of allergy to anesthesia ? PHYSICAL EXAMINATION: ? VITALS: Blood pressure 96/65, pulse 96, resp. rate 16, height 5' 3 (1.6 m), weight 172 lb (78 kg), last menstrual period 02/08/2023, SpO2 99%, not currently . ? GENERAL: The patient is well nourished, well hydrated in no acute distress. , The patient is oriented to time, place, and person. NECK: Supple. No lynphadenopathy, normal thyroid, no thyromegaly. LUNGS: Clear to auscultation bilaterally. no wheezes, rhonchi or rales HEART: Regular rate and rhythm, Normal heart sounds, and No murmurs or gallops abd- soft, nontender, gravid. ? IMPRESSION: Estimated Date of Delivery: 11/25/23 w/ cholestasis and variable decel ? PLAN: The risks/benefits/alternatives and personal involved for the planned c- section were reviewed with the patient. Her questions were answered to her satisfaction and she desires to proceed. Consent was signed. I reviewed with her postop instructions and expectations. ? ? I have reviewed and updated past medical and surgical history, medications and allergies
[2023-11-03] MEDS: Lactated Ringers 1,000 ML 999 ML IV (11:25)
[2023-11-03 11:46] LABS: Absolute Lymphocyte Count 1.74 X10^3/uL (0.83-4.51); Absolute Neutrophil Count 5.9 X10^3/uL (2.0-7.7); Basophil# 0.04 X10^3/uL; Basophil% 0.5 % (0-1); Eosinophil# 0.08 X10^3/uL; Eosinophils% 0.9 % (0-5); Hematocrit 40.7 % (37-47); Hemoglobin 12.9 g/dL (12.0-15.0); Lymphocyte # 1.74 X10^3/ul (0.83-4.51); Lymphocyte % 20.2 % (19-41); Mean Corp Hgb Conc 31.7 g/dL (32-36); Mean Corpuscular Hgb 29.6 pg (27.0-32.0); Mean Corpuscular Volume 93.3 fL (81-99); Mean Platelet Vol. 10.5 fl (6.2-12.0); Monocyte# 0.76 X10^3/uL; Monocyte% 8.8 % (0-10); NRBC Flagged by Analyzer 0 % (0-5); Neutrophil # 5.89 X10^3/uL (2.7-7.7); Neutrophil % 68.6 % (47-70); Platelet Count 157 K/mm3 (150-450); RBC Distribution Width CV 15.6 % (11.6-14.6); RBC Distribution Width SD 53.5 fl (35.1-43.9); Red Blood Count 4.36 M/mm3 (4.2-5.4); White Blood Count 8.6 K/mm3 (4.4-11.0)
[2023-11-03 11:56] LABS: Partial Thromboplast Time 28.5 Seconds (24.1-36.2)
[2023-11-03 12:02] LABS: Fibrinogen 520 mg/dl (203-444)
[2023-11-03] MEDS: Acetaminophen 500 MG Tablet 1000 MG PO ×2 (12:18→18:01)
[2023-11-03] MEDS: Lactated Ringers 1,000 ML 150 ML IV (12:40)
[2023-11-03 12:41] LABS: Syphilis Antibodies Non-reactive
[2023-11-03] MEDS: Sodium Citrate/Citric Acid 30 ML UDC PO (14:36)
[2023-11-03] MEDS: Cefazolin 2 GM in 0.9% Normal Saline (100mL Bag) 100 ML IV (14:50)
--- NOTE | 2023-11-03 15:30 | PLAC_PTH ---
PATHOLOGY RESULTS PATIENT: ROSA MORENO LOC: [facility] U#:[id number] AGE/SX: 28/F ROOM: WP004 RE11/03/[address]: Dr. Laquita Persaud MD : 1995 BED: 1 DIS: 11/05/2023 SPEC #: [id number] RECD: 11/04/23 08:23 STATUS: SUJATHA OWEN #: [id number] EMILY: 11/03/23 15:[address]: Laquita Persaud DEPT: SURGICAL PATHOLOGY RECD BY: Courtney Arvizu ENTERED: 11/04/23 08:23 SP TYPE: PLACENTA OTHR DR: Dr. Modesto Rider MD Tissues: Placenta, NOS Procedures: Surgery Specimen Level V HEADER OPERATION: Repeat section PRE-OP DIAGNOSIS: deceleration, cholestasis of TISSUE SUBMITTED: Placenta MICROSCOPIC DIAGNOSIS Placenta: Placental disc - third trimester placenta (567 gm). Focal chronic villitis of unknown etiology. Focal areas of hypovascular and edematous villi. Focal increase of intervillous and perivillous fibrin deposition. Membranes - no pathologic diagnosis. Umbilical cord - three blood vessels and no pathologic diagnosis. SJ:rg 11/06/2023 COMMENT Case has been reviewed in consultation with Dr. Woods who concurs with the above diagnosis. IDC:AM MICROSCOPIC DESCRIPTION Slides are reviewed. GROSS DESCRIPTION SPECIMEN: PLACENTA / CLINICAL INFORMATION: A. Weight: 3.18 kg B. Gestational Age: 36 weeks C. Sex: Male PLACENTAL WEIGHT (POST FIXATION): 567 gm PLACENTAL DIMENSIONS: 15.0 x 17.0 x 3.5 cm PLACENTAL SHAPE: Usual ovoid PLACENTAL WEIGHT FOR GESTATIONAL AGE: More than 90th percentile MEMBRANES - Present A. Insertion: Marginal B. Site of rupture from edge: At the margin of placental disc C. Color of membrane: Mendez-gonzalez D. Abnormalities: None UMBILICAL CORD - Present A. Color: Mendez-gonzalez B. Insertion: Marginal C. Length: 40.0 cm D. Diameter: 1.5 cm E. Number of vessels: Three F. Abnormalities: None PLACENTAL DISC - Present A. Color of surface: Mendez-gonzalez B. surface abnormalities: None C. Maternal cotyledons: Intact with minimal tears D. Attached retro placental clot: No clot E. Cut surface: Dark red and spongy F. Lesions: None G. Separate clot: Absent SECTIONS SUBMITTED: 1. Membrane roll 2. Cord, maternal end 3. Cord, end 4. Placental disc, and maternal surfaces 5. Placental disc, and maternal surfaces 6. Placental disc, and maternal surfaces SJ:roberta 11/05/2023 TC:5 CPT: 07158
--- NOTE | 2023-11-03 15:41 | EX.PCM.OBRPT ---
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 She was prepped and draped in the dorsal supine position with a leftward tilt. A Pfannenstiel skin incision was made approximately 2 cm above the symphysis pubis and carried through to underlying layer fascia with the scalpel. The fascia was incised incised in the midline and extended laterally with the Chapin scissors. The fascia was dissected off the rectus muscles with blunt and sharp dissection. The rectus muscles were in the midline and the peritoneum was entered bluntly. The peritoneal incision was stretched and the bladder blade was placed. The uterine incision was made in a low transverse fashion with the scalpel and extended superiorly and inferiorly with blunt dissection. The amniotic membranes were ruptured bluntly and clear amniotic fluid returned. The 's head was brought to the incision in the flexed position and delivered without difficulty. The remainder of the infant was delivered with gentle traction and fundal pressure in the standard fashion. The mouth and nares were bulb suctioned. The cord was clamped and cut as the infant was stimulated. Cord clamping was delayed. The was handed off to the waiting nursing staff. The placenta was delivered with fundal massage and gentle traction in the standard fashion. The uterus was exteriorized and cleared of all clots and debris. The cervix was dilated with a ring forcep. The uterine incision was closed with #1 Vicryl in a running locked fashion. A second layer of the same suture was used in an imbricating fashion to obtain hemostasis. Several [id number]-[id number] 0 Vicryl sutures were needed near the midline to control bleeding from sinuses. The incision was examined and was found to be hemostatic. Marty was placed over the uterine incision. The uterus was placed back into the peritoneal cavity and hemostasis was again confirmed. The rectus muscles were examined and any bleeding was Bovie cauterized. The parietal peritoneum and rectus muscles were closed en bloc with an 0 Vicryl running suture. The rectus fascia was examined and any bleeding was Bovie cauterized and the rectus fascia was closed with 1 Vicryl suture in a running standard fashion. Marty was placed over the rectus muscles and in the subcutaneous tissues. The subcutaneous tissue was examining and any bleeding was Bovie cauterized. The subcutaneous tissue was reapproximated with 3-0 Vicryl suture. The skin was closed in a subcuticular fashion by the ENGINEERING SUPERVISOR with me present in the labor and delivery suite. I performed the remainder of the procedure with assistance. All sponge, lap, and needle counts were correct. The patient was taken to her room for recovery in a stable condition. Presentation: Positive for Vertex Amniotic Membrane Rupture Type: Artificial Amniotic Fluid Description: Clear Placental Delivery Description: Expressed Placenta Disposition: [facility] Specimen(s) Sent to Pathology: placenta Cord Vessel Description: 3 Vessels Cord Entanglement: None Cord Gases: ABG and VBG A Gender: Male (yvonne) (1 minute): 8 (5 minute): 9 Delayed Cord Clamping: Yes Complications Complications: none Admit VTE Documentation VTE Present on Admission: No VTE Mechan Device Prophylaxis: SCD's VTE Pharm Prophylaxis Ordered: No Reason Prophylaxis Not Ordered: Procedure Not Indicated
[2023-11-03] MEDS: Oxytocin 15 Units/NS 250ml 15 UNITS/250 ML IV.SOLN 83 UNITS IV (16:03)
[2023-11-03] MEDS: LACTATED RINGERS 500 ML 999 ML IV (16:35)
[2023-11-03] MEDS: Ketorolac 30 MG/ML Syringe IV ×2 (16:39→23:02)
[2023-11-03 16:48] LABS: Pathology Specimen OB SEE PATHOLOGY REPORT
[2023-11-03 17:31] LABS: Absolute Lymphocyte Count 1.62 X10^3/uL (0.83-4.51); Absolute Neutrophil Count 6.7 X10^3/uL (2.0-7.7); Basophil# 0.05 X10^3/uL; Basophil% 0.5 % (0-1); Eosinophil# 0.08 X10^3/uL; Eosinophils% 0.9 % (0-5); Hematocrit 35.7 % (37-47); Hemoglobin 11.4 g/dL (12.0-15.0); Lymphocyte # 1.62 X10^3/ul (0.83-4.51); Lymphocyte % 17.4 % (19-41); Mean Corp Hgb Conc 31.9 g/dL (32-36); Mean Corpuscular Hgb 30.1 pg (27.0-32.0); Mean Corpuscular Volume 94.2 fL (81-99); Mean Platelet Vol. 10.6 fl (6.2-12.0); Monocyte# 0.77 X10^3/uL; Monocyte% 8.3 % (0-10); NRBC Flagged by Analyzer 0 % (0-5); Neutrophil # 6.68 X10^3/uL (2.7-7.7); Neutrophil % 71.8 % (47-70); Platelet Count 154 K/mm3 (150-450); RBC Distribution Width CV 15.5 % (11.6-14.6); RBC Distribution Width SD 53.7 fl (35.1-43.9); Red Blood Count 3.79 M/mm3 (4.2-5.4); White Blood Count 9.3 K/mm3 (4.4-11.0)
[2023-11-03] MEDS: Lactated Ringers 1,000 ML 100 ML IV (23:37)
[2023-11-04] VITALS (7 sets, daily range): BP systolic 83–118; BP diastolic 37–57; PULSE 65–106; RESP 16–18; TEMP 36.2–37.1; O2SAT 97–100
[2023-11-04] MEDS: Acetaminophen 500 MG Tablet 1000 MG PO ×5 (00:12→23:53)
[2023-11-04] MEDS: Ketorolac 30 MG/ML Syringe IV ×2 (04:38→09:46)
[2023-11-04 04:57] LABS: Hematocrit 33.9 % (37-47); Hemoglobin 10.8 g/dL (12.0-15.0); Mean Corp Hgb Conc 31.9 g/dL (32-36); Mean Corpuscular Hgb 30.2 pg (27.0-32.0); Mean Corpuscular Volume 94.7 fL (81-99); Mean Platelet Vol. 10.2 fl (6.2-12.0); Platelet Count 155 K/mm3 (150-450); RBC Distribution Width CV 15.6 % (11.6-14.6); RBC Distribution Width SD 54.4 fl (35.1-43.9); Red Blood Count 3.58 M/mm3 (4.2-5.4); White Blood Count 9.3 K/mm3 (4.4-11.0)
--- NOTE | 2023-11-04 05:18 | NURSING ---
Davis catheter removed at 0440, tubing and rubber intact and draining properly.
--- NOTE | 2023-11-04 08:11 | PCM.PN.OB ---
Subjective Subjective Pain controlled Objective Data Objective Data Vital Signs: Vital Signs Temp Pulse Resp BP Pulse Ox O2 Del Method 97.8 F 65 16 89/51 L 100 Room Air 11/04/23 04:33 11/04/23 04:33 11/04/23 04:33 11/04/23 04:33 11/04/23 04:33 11/04/23 04:33 Oxygen Delivery Method Room Air Weight: 172 lb Body Mass Index (BMI) 30.4 Intake & Output: Intake and Output for Last 24 Hours 11/02/23 11/03/23 11/04/23 23:59 23:59 23:59 Intake Total 2160 / 2160 665 / 665 Output Total 1450 / 1450 1000 / 1000 Balance 710 / 710 -335 / -335 Lab / Micro Data 11/04/23 04:44 Labs: Laboratory Results - last 24 hr 11/03/23 11:25: WBC 8.6, RBC 4.36, Hgb 12.9, Hct 40.7, MCV 93.3, MCH 29.6, MCHC 31.7 L, RDW Std Deviation 53.5 H, RDW Coeff of Domenica 15.6 H, Plt Count 157, MPV 10.5, Immature Gran % (Auto) 1.000 H, Neut % (Auto) 68.6, Lymph % (Auto) 20.2, [place] % (Auto) 8.8, Eos % (Auto) 0.9, Baso % (Auto) 0.5, Absolute Neuts (auto) 5.9, Absolute Lymphs (auto) 1.74, Nucleated RBC % 0, PT 13.0, INR 1.0, APTT 28.5, Fibrinogen 520 H, Syphilis Total Ab Non-reactive, Blood Type A POSITIVE, Antibody Screen NEGATIVE 11/03/23 17:10: WBC 9.3, RBC 3.79 L, Hgb 11.4 L, Hct 35.7 L, MCV 94.2, MCH 30.1, MCHC 31.9 L, RDW Std Deviation 53.7 H, RDW Coeff of Domenica 15.5 H, Plt Count 154, MPV 10.6, Immature Gran % (Auto) 1.100 H, Neut % (Auto) 71.8 H, Lymph % (Auto) 17.4 L, [place] % (Auto) 8.3, Eos % (Auto) 0.9, Baso % (Auto) 0.5, Absolute Neuts (auto) 6.7, Absolute Lymphs (auto) 1.62, Nucleated RBC % 0 11/04/23 04:44: WBC 9.3, RBC 3.58 L, Hgb 10.8 L, Hct 33.9 L, MCV 94.7, MCH 30.2, MCHC 31.9 L, RDW Std Deviation 54.4 H, RDW Coeff of Domenica 15.6 H, Plt Count 155, MPV 10.2 Physical Exam Const alert, oriented x3 and no apparent distress HEENT normocephalic GI soft to palpation, non-tender and non-distended GI Narrative: fundus firm, mid & below umbilicus Incision - bandage c/d/i Extremity normal to inspection and no calf tenderness Assessment & Plan (1) delivery delivered: COMMENT: POD#1 PLAN: Plan Heme - HDS, cbc reviewed ID - AF, no signs infection GI/ - no issues ROutine care Possible d/c home later today per patient request
--- NOTE | 2023-11-04 08:16 | PCM.DC.SUM ---
Providers Date of Admission: 11/03/23 Primary Care Physician: Dr. Modesto Rider MD Reason For Visit: REPEAT C SECTION Diagnosis Discharge Diagnosis (1) delivery delivered: Status: Acute Code(s): O82 - Encounter for delivery without indication Plan Heme - HDS, cbc reviewed ID - AF, no signs infection GI/ - no issues ROutine care Possible d/c home later today per patient request Medications at Discharge Home Medications albuterol sulfate 90 mcg/actuation aerosol inhaler 1 puff inhalation Q6H PRN PRN Sob &/Or Wheezing 05/30/20 [id number] 1 mg tablet 1 tab PO DAILY 09/07/21 acetaminophen 500 mg tablet 1,000 mg (2 x 500 mg) PO Q6H #0 tabs 11/04/23 naproxen 500 mg tablet 500 mg PO Q8H #0 tabs 11/04/23 Hospital Course Operations section Summary of Care Provided Minutes Spent on Discharge: 15 Weight / BMI Weight Weight: 172 lb Body Mass Index (BMI) 30.4 ABG / Lab / Microbiology Data 11/04/23 04:44 Laboratory: Laboratory Results - last 24 hr 11/03/23 11:25: WBC 8.6, RBC 4.36, Hgb 12.9, Hct 40.7, MCV 93.3, MCH 29.6, MCHC 31.7 L, RDW Std Deviation 53.5 H, RDW Coeff of Domenica 15.6 H, Plt Count 157, MPV 10.5, Immature Gran % (Auto) 1.000 H, Neut % (Auto) 68.6, Lymph % (Auto) 20.2, [place] % (Auto) 8.8, Eos % (Auto) 0.9, Baso % (Auto) 0.5, Absolute Neuts (auto) 5.9, Absolute Lymphs (auto) 1.74, Nucleated RBC % 0, PT 13.0, INR 1.0, APTT 28.5, Fibrinogen 520 H, Syphilis Total Ab Non-reactive, Blood Type A POSITIVE, Antibody Screen NEGATIVE 11/03/23 17:10: WBC 9.3, RBC 3.79 L, Hgb 11.4 L, Hct 35.7 L, MCV 94.2, MCH 30.1, MCHC 31.9 L, RDW Std Deviation 53.7 H, RDW Coeff of Domenica 15.5 H, Plt Count 154, MPV 10.6, Immature Gran % (Auto) 1.100 H, Neut % (Auto) 71.8 H, Lymph % (Auto) 17.4 L, [place] % (Auto) 8.3, Eos % (Auto) 0.9, Baso % (Auto) 0.5, Absolute Neuts (auto) 6.7, Absolute Lymphs (auto) 1.62, Nucleated RBC % 0 11/04/23 04:44: WBC 9.3, RBC 3.58 L, Hgb 10.8 L, Hct 33.9 L, MCV 94.7, MCH 30.2, MCHC 31.9 L, RDW Std Deviation 54.4 H, RDW Coeff of Domenica 15.6 H, Plt Count 155, MPV 10.2 D/C Instructions Discharge Diet: No restrictions May resume sexual activity in: 6 weeks Weight Bearing Status: Weight bearing as tolerated Call your doctor if your incision/area has: Continuous Slow Oozing, Sudden Increased Bleeding, Increased Pain/ Swelling, Increased Redness, Foul Smelling Discharge and Swelling at the incision site Call your doctor if you observe: Fever of 101 or Higher, Coldness, Increased Pain, Change in Color, Inability to urinate, Inability to have a bowel movement, Using more than 1 pad per hour, Shortness of breath, Dizziness, Fainting spells, Chest pain, Increased palpitations (irregular heartbeat), Calf discomfort and Uncontrolled pain Suture Line Care: Avoid Pulling/Pushing and Avoid Pinching/Bending Remove Dressing in: 1 week Cleanse incision/area with: Soap & Water Please Follow Up With: Laquita Persaud MD When: Follow up in 2 and 6 weeks for visits. Meaningful Use Info Meaningful Use Diagnoses (Choose all that apply): None applicable Discharge Plan Admission Admit Date/Time: 11/03/23 10:48 Primary Reason for Your Visit: section Attending Provider: Laquita Persaud Primary Care Provider: Modesto Rider Discharge Orders/Prescriptions Prescriptions: New acetaminophen 500 mg Tablet 1,000 mg PO Q6H Qty: 0 0RF naproxen 500 mg Tablet 500 mg PO Q8H Qty: 0 0RF Continued albuterol sulfate 1 PUFF inhaler 1 puff inhalation Q6H PRN PRN (Reason: Sob &/Or Wheezing) [id number] 1 mg Tablet 1 tab PO DAILY Discontinued aspirin [Abhilash Chewable Aspirin] 81 mg tablet,chewable 1 tab PO DAILY ursodiol 200 mg capsule 200 mg PO BID Referrals / Follow Up: Modesto Rider MD [Primary Care Provider] - Disposition Disposition (needs filled in before D/C Order can be placed): Home, Self Care
[2023-11-04] MEDS: Senna/Docusate Sodium 1 Tablet PO (09:45)
--- NOTE | 2023-11-04 14:08 | CASEMGMT ---
Social Work Assessment Labor and Delivery Unit Patient Address:[address] [place] [address] Phone number: [phone] Date of Referral: 11/03/23 Time of Referral:? 1205 Referred By: Laquita Persaud Date of Intervention: ??11/04/23 Time of Intervention:? 6600 Reason for Referral:? history of anxiety and depression, used zoloft previously Sw completed chart review and acknowledges social work consult due to maternal mental health history positive for anxiety and depression. Sw presented to bedside and introduced self to mother of baby (MOB- Pratima) and father of baby (FOB- Jori). Sw explained sw role during hospitalization and completed psychosocial assessment. Sw asked FOB to step out of room momentarily so that MOB could complete [place] Depression Scale and SDOH. FOB did so respectfully. History obtained from: medical records, MOB and FOB Household composition: Currently residing in the family home is DAWSON SALDANA, their almost 2 year old daughter (Kayla, : 11/25/21) and now baby. No concerns reported at this time regarding housing. Patient's parent/guardian status:? ?MOB states that she and FOB met just after graduating from high school. MOB states that they were introduced to each other by mutual friends and have been together for 10 years. MOB denies any issues or concerns with FOB, denying any domestic violence or intimate partner violence. [facility] baby is second baby for both parents. Upon admission, SHANA answered that she did not feel safe returning home. MOB indicated that she is not fearful and denies any safety concerns with FOB/ home. Medical History: ?SHANA is 28 year old female who is 6, para 1- now 2 following labor and delivery of . SHANA received routine care during with [facility]. SHANA delivered baby on 11/03/23 at 36 weeks gestation via repeat after a concerning stress test when baby's heart rate dipped. Baby boy, named Edmar, was born weighing 7lb and his apgars were 8 and 9 at one and five minutes of life, respectfully. MOB states that she is breast feeding and it is going well, she has a breast pump for home. MOB states that baby will be followed by Dr. Jeff for pediatrics. Educational Status:? MOB graduated from high school FOB graduated with a bachelors degree. No concerns reported regarding reading, learning or comprehension. Financial Status: Both parents are gainfully employed outside of the home. DAWSON works for [employer] and is able to take 1 week off of work now that baby has been born. SHANA works for [employer] and is able to take three months off of work. Supplies:?? Parents have obtained all necessary baby supplies, including: car seat, safe sleep space, clothes, diapers and wipes. Childcare/Caregiver(s):? SHANA will be the primary caregiver to baby along with DAWSON when he is not working. MOB states that when both parents have returned to work either maternal or paternal grandmother will babysit baby and big sister. Transportation:?? Both parents have their drivers license and reliable means of transportation. No barriers at this time. Programs/Agencies Involved: ???SHANA states that DAWSON was laid off two times during her . MOB states that when that happened they were eligible for resources provided by [employer]. MOB states that they were receiving SNAP benefits and have Medicaid insurance. MOB states that she will call and get baby added to their case, which may make them eligible for services again now that SHANA will be not be receiving an income during her maternity leave. Children Services/Legal Issues:???NO history of involvement, no issues or concerns warranting a referral to be made at this time. Behavioral Health Issues: ??Mental Health History:?DAWSON denies mental health history. SHANA states that she has been diagnosed with anxiety and depression. MOB states that she does not feel that she struggles with depression, but states that she definitely struggles with OCD. SHANA states that she is always worried that her daughter or one of them in the family is going to get sick. SHANA reports that she does not like to be around anyone who is sick so a lot of times that means that they don't leave the house. MOB states that however when one of them does get sick, then she is like oh well, it is what it is and everything is fine. SHANA is able to identify that these concerns amplified when COVID happened. SHANA reports that their daughter had RSV, COVID and a broken hip, and is just fine, however illnesses and sicknesses is something that MOB perseverates on continuously. SHANA reports that she was put on zoloft after her daughter was born. MOB states that she took it for about three months, and then did not continue it after a pharmacy change, and then she realized she was and did not want to take it while she was . MOB states that getting back on a low dose medication is something that she is receptive to and has already talked to her OBGYN about it. SHANA completed [place] Depression Scale and her score was a 10. Sw provided education and support. ?? Substance Use History:??Parents deny history of substance use prior to and during . Family History:?Parents deny family addiction or substance use history and significant mental health diagnoses. ? Drug Screens: ??No drug screens observed in chart review. Family/Social Stressors:?SHANA reports that the only stressor she has at this time, one that she always has is worrying about illnesses and sicknesses and that one of them is going to get sick if they go anywhere or do anything, or have people over who are sick and will get one of them sick. SHANA is able to recognize that this issue/ concern is impacting her mental health and the way that she parents/ lives her life. MOB receptive to resources and support. Support Systems: MOB states that her parents are their biggest supports. Depression/Shaken Baby/Safe Sleeping:? Sw educated parents on signs and symptoms of baby blues and depression and anxiety. Sw provided literature and list of local counseling agencies. MOB states that sometimes she does not know how other people can help her when she is struggling. FOB states he would be able to recognize when MOB is struggling, but sometimes he does not know what she needs from him. Sw encouraged parents to discuss this prior to discharge, parents express understanding. Sw educated parents on shaken baby prevention and ABCs of safe sleep. Parents express understanding. ASSESSMENT:? MOB and baby admitted following labor and delivery of . MOB and FOB participated and contributed to completion of psychosocial assessment. MOB expresses understanding of mental health symptoms to be on the lookout for. MOB and FOB both observed to provide loving and appropriate hands on care of . Parents talkative and receptive to sw involvement and support. MOB in agreement that talking to her OBGYN about starting a low dose medication would be helpful during this journey. MOB states that she mentioned it yesterday and this is something that she will follow up on. Parents have obtained all necessary baby items for baby and have natural supports in place. PLAN:?MOB and baby to be discharged when medically ready. ?No other services requested or indicated. Carlos Godinez, HEADLIGHT ASSEMBLER, DOCUMENT PREPARER [employer]CR[employer]IL[employer]
[2023-11-04] MEDS: Naproxen 500 MG Tablet PO ×2 (16:20→23:53)
[2023-11-04] MEDS: oxyCODONE 5 MG Tablet PO ×2 (19:49→23:53)
[2023-11-05 02:20] VITALS: BP 107/76; PULSE 81; RESP 16; O2SAT 91
[2023-11-05] MEDS: Acetaminophen 500 MG Tablet 1000 MG PO (06:05)
[2023-11-05] MEDS: Naproxen 500 MG Tablet PO (08:22)
[2023-11-05 08:28] VITALS: BP 98/64; PULSE 87; RESP 18; TEMP 37.1; O2SAT 99
--- NOTE | 2023-11-05 08:56 | PCM.PN.OB ---
Subjective Subjective Pain well controlled, avverage lochia. +Flatus, no BM. Objective Data Objective Data Vital Signs: Vital Signs Temp Pulse Resp BP Pulse Ox O2 Del Method 98.7 F 87 18 98/64 99 Room Air 11/05/23 08:28 11/05/23 08:28 11/05/23 08:28 11/05/23 08:28 11/05/23 08:28 11/05/23 08:28 Oxygen Delivery Method Room Air Weight: 78.018 kg Body Mass Index (BMI) 30.4 Intake & Output: Intake and Output for Last 24 Hours 11/03/23 11/04/23 11/05/23 23:59 23:59 23:59 Intake Total 2160 / 2160 665 / 665 Output Total 1450 / 1450 2100 / 2100 Balance 710 / 710 -1435 / -1435 Lab / Micro Data 11/04/23 04:44 Physical Exam Const alert General Appearance: cooperative GI GI Narrative: soft, moderate distention, fundus firm, appropriately tender. Abdominal bandage clean dry and intact Assessment & Plan (1) delivery delivered: COMMENT: POD#2 PLAN: Desires d/c home. Mild acute blood loss anemia, appropriate for blood loss from delivery bottle feeding and doing well
== END 2023-11-05 11:15 | disposition home or self-care (01) | DRG 540 ==
PROVIDERS: Admitting Provider Obstetrics & Gynecology; PCP Family Medicine; Referring Provider Obstetrics & Gynecology; Visit Provider Obstetrics & Gynecology
DX: O76 Abnormality in fetal heart rate and rhythm complicating labor and delivery (principal); K83.1 Obstruction of bile duct; O60.14X0 Preterm labor third trimester with preterm delivery third trimester, not applicable or unspecified; D62 Acute posthemorrhagic anemia; O26.62 Liver and biliary tract disorders in childbirth; O34.219 Maternal care for unspecified type scar from previous cesarean delivery; Z37.0 Single live birth; Z3A.36 36 weeks gestation of pregnancy
CPT/HCPCS: 36415; 59025; 59050; 82565; 82570; 84156; 84450; 84460; 84550; 85025; 85027; 85384; 85610; 85730; 86780; 86850; 86900; 86901; 88307; 99221; J7120; G0378; J2405